=== PATIENT | female | born 1935 | race Caucasian/White ===

== ENCOUNTER 2017-01-17 19:36 | Observation (INO) ==
[2017-01-17] MEDS ORDERED: 0.9 % Sodium Chloride 1,000 ML IVC ONE (19:47)
--- NOTE | 2017-01-17 19:50 | Emergency Department Note ---
Disposition Clinical Impression: Elevated troponin Altered mental status Qualifiers: Altered mental status type: disorientation Qualified Code(s): R41.0 - Disorientation, unspecified Syncope Qualifiers: Syncope type: unspecified Qualified Code(s): R55 - Syncope and collapse Disposition: Admitted As Inpatient Condition: Fair Time of Disposition: 22:36 Altered Mental Status HPI - General Chief Complaint: ED Altered Mental Status Stated Complaint: AMS Time Seen by Provider: 01/17/17 19:45 Source: patient, EMS Mode of arrival: EMS Limitations: altered mental status Nursing Notes Reviewed: Yes Vital Signs Reviewed: Yes - History of Present Illness HPI Narrative: Patient presents to the ED if the chief complaint of altered mental status. EMS reports that the patient's pecan huller found the patient slumped over in a chair on her porch. Unknown last well time. When they arrived they state that the patient was alert but not oriented. The person that found her, said that she was "unresponsive" at first. Upon my evaluation, the patient has no complaints. She denies any pain. She does not know why she is here. She knows her first name and her date of , but she thinks it is 1994. She knows that she lives in [place] but is unsure where. She states that she has heart problems but does not know what they are. She does not know if she is on any medications. 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 - Social History Smoking Status: Current every day smoker Alcohol use: Reports: none Drug use: Reports: none Physical Exam - General Limitations: altered mental status General appearance: alert, in no apparent distress - Head Head exam: atraumatic, normocephalic, normal inspection - Eye Eye exam: Present: normal appearance, PERRL, EOMI (Patient has difficulty following commands to track finger, but is able to look in all directions) - ENT ENT exam: mucous membranes dry - Neck Neck exam: Present: normal inspection, full ROM, trachea midline - Chest Chest inspection: Present: normal inspection, symmetric chest wall rise - Respiratory Respiratory exam: Present: normal lung sounds bilaterally - Cardiovascular Cardiovascular exam: Present: regular rate, normal rhythm, normal heart sounds - Abdominal Exam Abdominal exam: Present: soft, Non-Tender. Absent: tenderness, distention, guarding, rebound, rigidity - Extremities Exam Extremities exam: Present: normal inspection, full ROM, other (Patient has scattered areas of ecchymosis over the right upper extremity). Absent: tenderness, pedal edema - Expanded Lower Extremity Exam Hip/Pelvis exam: Present: normal inspection, full ROM - Neurological Exam Neurological exam: Present: alert. Absent: oriented X3 (Knows her first name, date of , [place] of residence. She does think it is 1994 and does not know her medical history. No insight into current condition) - Skin Skin exam: Present: warm, dry, intact, normal color Course Course Narrative: 81-year-old female presenting with altered mental status. Stroke alert was not called due to unknown last well time. Her neurological exam is grossly nonfocal , although she does not follow directions well and her finger to nose test was abnormal. We will CT her head initiated workup and likely admit. Disposition pending, patient currently stable - Reevaluation(s) Reevaluation #1: CT did not show any acute changes. Troponin is slightly elevated. Family is concerned over the patient's home living situation. Patient is still altered and no one knows what her baseline is. We will admit her for altered mental status, elevated troponin and social situation. Vital Signs Temperature 98.5 F 01/17/17 19:39 Pulse Rate 63 01/17/17 19:39 Respiratory Rate 18 01/17/17 19:39 Blood Pressure 144/66 01/17/17 19:39 O2 Sat by Pulse Oximetry 95 01/17/17 19:39 Temperature 97.9 F 01/18/17 06:56 Pulse Rate 63 01/18/17 06:56 Respiratory Rate 14 01/18/17 06:56 Blood Pressure 124/60 01/18/17 06:56 O2 Sat by Pulse Oximetry 95 01/18/17 06:56 Oxygen Delivery Oxygen Delivery Room Air Altered Mental Status - Medical Records Medical records reviewed: Yes I reviewed the patient's medical records. - Lab Data Lab results reviewed: Yes I reviewed the patient's lab results. Result diagrams: 01/17/17 20:33 01/18/17 07:03 Lab Results 01/17/17 01/17/17 01/17/17 Range/Units 19:50 19:50 19:54 WBC (4.3-11.1) K/mcL RBC (3.82-4.97) M/mcL Hgb (11.5-15.4) g/dL Hct (35.3-44.9) % MCV (83.0-100.0) fL MCH (28.0-33.3) pg MCHC (31.6-35.5) g/dL RDW (11.5-14.5) % Plt Count (140-400) K/mcL MPV (9.4-12.4) fL Immature Gran % (0-4) % Seg Neutrophils % % Lymphocytes % % Monocytes % % Eosinophils % % Basophils % % Neutrophils # (1.6-8.9) K/mcL Lymphocytes # (0.6-4.6) K/mcL Monocytes # (0.0-1.3) K/mcL Eosinophils # (0.0-0.6) K/mcL Basophils # (0.0-0.2) K/mcL Immature Plt Fraction (1.1-6.1) % PT (9.4-12.1) Seconds INR APTT (26.0-36.0) Seconds Sodium (136-145) mEq/L Potassium (3.5-4.5) mEq/L Chloride (98-109) mEq/L Carbon Dioxide (19-29) mEq/L BUN (7-20) mg/dL Creatinine (0.57-1.11) mg/dL Est GFR ( Amer) (> 60) Est GFR (Non-Af Amer) (> 60) BUN/Creatinine Ratio (6-26) Glucose (70-99) mg/dL POC Glucose 65 (58-89) Calculated Osmolality (280-300) Calcium (8.6-10.8) mg/dL Total Bilirubin (0.2-1.2) mg/dL Direct Bilirubin (0.0-0.5) mg/dL Indirect Bilirubin (0.0-1.2) mg/dL AST (5-34) Units/L ALT (0-55) Units/L Alkaline Phosphatase (38-126) Units/L Creatine Kinase (29-168) Units/L Troponin I (0-0.03) ng/mL Serum Total Protein (6.0-8.3) g/dL Albumin (3.5-5.0) g/dL Globulin (2.4-3.5) g/dL Albumin/Globulin Ratio (1.1-2.2) TSH (0.350-4.840) mcIU/mL Urine Color Dark Yellow (Yellow) Urine Clarity Cloudy A (Clear) Urine pH 5.0 (5.0-8.0) pH Units Ur Specific [place] > 1.030 H (1.010-1.025) Urine Protein 30 H (Neg-Trace) mg/dL Urine Glucose (UA) Normal (Normal) mg/dL Urine Ketones 15 H (Negative) mg/dL Urine Blood Negative (Negative) Urine Nitrite Negative (Negative) Urine Bilirubin Moderate H (Negative) Urine Urobilinogen Normal (Normal) mg/dL Ur Leukocyte Esterase Negative (Negative) Urine Microscopic RBC 3-5 H (0-3) per hpf Urine Microscopic WBC 3-5 H (0-3) per hpf Ur Squamous Epith Cells Many H (None-Few) per lpf Urine Bacteria Few (None-Few) per hpf Hyaline Casts None Seen (None-Few) per lpf Ur Culture Indicated? NO (NO) Urine Opiates Screen Positive H (Nhcdtv=213) ng/mL Ur Barbiturates Screen Negative (Jwlyao=256) ng/mL Ur Phencyclidine Scrn Negative (Cutoff=25) ng/mL Ur Amphetamines Screen Negative (Pjkffq=3133) ng/mL U Benzodiazepines Scrn Negative (Osxghk=404) ng/mL Urine Cocaine Screen Negative (Cutoff= 300) ng/mL U Marijuana (THC) Screen Negative (Cutoff = 50) ng/mL Ethyl Alcohol (0-10) mg/dL 01/17/17 01/17/17 01/17/17 Range/Units 20:33 20:33 20:33 WBC 10.7 (4.3-11.1) K/mcL RBC 5.19 H (3.82-4.97) M/mcL Hgb 15.5 H (11.5-15.4) g/dL Hct 48.9 H (35.3-44.9) % MCV 94.2 (83.0-100.0) fL MCH 29.9 (28.0-33.3) pg MCHC 31.7 (31.6-35.5) g/dL RDW 14.0 (11.5-14.5) % Plt Count 321 (140-400) K/mcL MPV 9.8 (9.4-12.4) fL Immature Gran % 0.3 (0-4) % Seg Neutrophils % 66.6 % Lymphocytes % 19.3 % Monocytes % 8.1 % Eosinophils % 5.0 % Basophils % 0.7 % Neutrophils # 7.1 (1.6-8.9) K/mcL Lymphocytes # 2.1 (0.6-4.6) K/mcL Monocytes # 0.9 (0.0-1.3) K/mcL Eosinophils # 0.5 (0.0-0.6) K/mcL Basophils # 0.1 (0.0-0.2) K/mcL Immature Plt Fraction 3.7 (1.1-6.1) % PT 11.2 (9.4-12.1) Seconds INR 1.0 APTT 28.7 (26.0-36.0) Seconds Sodium 139 (136-145) mEq/L Potassium 4.5 (3.5-4.5) mEq/L Chloride 105 (98-109) mEq/L Carbon Dioxide 22 (19-29) mEq/L BUN 27 H (7-20) mg/dL Creatinine 1.08 (0.57-1.11) mg/dL Est GFR ( Amer) 59 L (> 60) Est GFR (Non-Af Amer) 48 L (> 60) BUN/Creatinine Ratio 25 (6-26) Glucose 84 (70-99) mg/dL POC Glucose (58-89) Calculated Osmolality 292 (280-300) Calcium 9.7 (8.6-10.8) mg/dL Total Bilirubin 0.9 (0.2-1.2) mg/dL Direct Bilirubin 0.3 (0.0-0.5) mg/dL Indirect Bilirubin 0.6 (0.0-1.2) mg/dL AST 20 (5-34) Units/L ALT 10 (0-55) Units/L Alkaline Phosphatase 54 (38-126) Units/L Creatine Kinase 146 (29-168) Units/L Troponin I (0-0.03) ng/mL Serum Total Protein 7.4 (6.0-8.3) g/dL Albumin 4.1 (3.5-5.0) g/dL Globulin 3.3 (2.4-3.5) g/dL Albumin/Globulin Ratio 1.2 (1.1-2.2) TSH 0.518 (0.350-4.840) mcIU/mL Urine Color (Yellow) Urine Clarity (Clear) Urine pH (5.0-8.0) pH Units Ur Specific [place] (1.010-1.025) Urine Protein (Neg-Trace) mg/dL Urine Glucose (UA) (Normal) mg/dL Urine Ketones (Negative) mg/dL Urine Blood (Negative) Urine Nitrite (Negative) Urine Bilirubin (Negative) Urine Urobilinogen (Normal) mg/dL Ur Leukocyte Esterase (Negative) Urine Microscopic RBC (0-3) per hpf Urine Microscopic WBC (0-3) per hpf Ur Squamous Epith Cells (None-Few) per lpf Urine Bacteria (None-Few) per hpf Hyaline Casts (None-Few) per lpf Ur Culture Indicated? (NO) Urine Opiates Screen (Xcmbbb=847) ng/mL Ur Barbiturates Screen (Drzefk=586) ng/mL Ur Phencyclidine Scrn (Cutoff=25) ng/mL Ur Amphetamines Screen (Ngcqng=9969) ng/mL U Benzodiazepines Scrn (Qgxzjq=906) ng/mL Urine Cocaine Screen (Cutoff= 300) ng/mL U Marijuana (THC) Screen (Cutoff = 50) ng/mL Ethyl Alcohol < 10 (0-10) mg/dL 01/17/17 Range/Units 20:33 WBC (4.3-11.1) K/mcL RBC (3.82-4.97) M/mcL Hgb (11.5-15.4) g/dL Hct (35.3-44.9) % MCV (83.0-100.0) fL MCH (28.0-33.3) pg MCHC (31.6-35.5) g/dL RDW (11.5-14.5) % Plt Count (140-400) K/mcL MPV (9.4-12.4) fL Immature Gran % (0-4) % Seg Neutrophils % % Lymphocytes % % Monocytes % % Eosinophils % % Basophils % % Neutrophils # (1.6-8.9) K/mcL Lymphocytes # (0.6-4.6) K/mcL Monocytes # (0.0-1.3) K/mcL Eosinophils # (0.0-0.6) K/mcL Basophils # (0.0-0.2) K/mcL Immature Plt Fraction (1.1-6.1) % PT (9.4-12.1) Seconds INR APTT (26.0-36.0) Seconds Sodium (136-145) mEq/L Potassium (3.5-4.5) mEq/L Chloride (98-109) mEq/L Carbon Dioxide (19-29) mEq/L BUN (7-20) mg/dL Creatinine (0.57-1.11) mg/dL Est GFR ( Amer) (> 60) Est GFR (Non-Af Amer) (> 60) BUN/Creatinine Ratio (6-26) Glucose (70-99) mg/dL POC Glucose (58-89) Calculated Osmolality (280-300) Calcium (8.6-10.8) mg/dL Total Bilirubin (0.2-1.2) mg/dL Direct Bilirubin (0.0-0.5) mg/dL Indirect Bilirubin (0.0-1.2) mg/dL AST (5-34) Units/L ALT (0-55) Units/L Alkaline Phosphatase (38-126) Units/L Creatine Kinase (29-168) Units/L Troponin I 0.05 H* (0-0.03) ng/mL Serum Total Protein (6.0-8.3) g/dL Albumin (3.5-5.0) g/dL Globulin (2.4-3.5) g/dL Albumin/Globulin Ratio (1.1-2.2) TSH (0.350-4.840) mcIU/mL Urine Color (Yellow) Urine Clarity (Clear) Urine pH (5.0-8.0) pH Units Ur Specific [place] (1.010-1.025) Urine Protein (Neg-Trace) mg/dL Urine Glucose (UA) (Normal) mg/dL Urine Ketones (Negative) mg/dL Urine Blood (Negative) Urine Nitrite (Negative) Urine Bilirubin (Negative) Urine Urobilinogen (Normal) mg/dL Ur Leukocyte Esterase (Negative) Urine Microscopic RBC (0-3) per hpf Urine Microscopic WBC (0-3) per hpf Ur Squamous Epith Cells (None-Few) per lpf Urine Bacteria (None-Few) per hpf Hyaline Casts (None-Few) per lpf Ur Culture Indicated? (NO) Urine Opiates Screen (Zozlwx=700) ng/mL Ur Barbiturates Screen (Ufzuko=332) ng/mL Ur Phencyclidine Scrn (Cutoff=25) ng/mL Ur Amphetamines Screen (Fxmpmm=7130) ng/mL U Benzodiazepines Scrn (Wlhddy=768) ng/mL Urine Cocaine Screen (Cutoff= 300) ng/mL U Marijuana (THC) Screen (Cutoff = 50) ng/mL Ethyl Alcohol (0-10) mg/dL - Radiology Data Radiology results reviewed: Yes I reviewed the patient's radiology results. - EKG Data EKG attestation: Yes I reviewed and interpreted this EKG. EKG results narrative: Sinus rhythm with first-degree AV block, rate 62, FL interval 214, QRS 150, QTC 462, left axis deviation, right bundle branch block and left anterior fascicular block which is unchanged from previous S.B.A.R. - S.B.A.R. Situation: Demographics, MOA Background: Presenting Complaint, Relevant PMH, Meds, & Allergies Assessment: Vital Signs, Course and respsone to treatment, Exam Concerns, Patient/Family Expectation, Pertinant Lab Results, Outstanding Labs Recommendation: Recommendation based on pending studies, treatments, or consults S.B.A.R. Report Given to: Dr. Harley S.B.A.RIta Repor Time: 22:51 Attestation Statement - Attestation Attestation: I, Alok Blackburn, examined this patient and my medical decision-making was reviewed with the PROFILE STITCHING MACHINE OPERATOR/PA/Advanced Practice Nurse/Resident Physician. I agree with the documented findings, disposition and treatment plan as described except to the extent set forth below. 81-year-old female presents with concerns of confusion. She is a poor historian and is unable to give history regarding her case and presentation. She was apparently found on her porch slumped over. She is unable to describe whether she syncopized. On my initial evaluation the patient is alert and moving all extremities however she has difficulty following instructions for the full neurologic exam. On physical exam the patient has lungs are clear to auscultation bilaterally and the abdomen is nontender to palpation. Patient has an initial elevated troponin of 0.05. She had a negative troponin during her previous stay. Patient will be admitted to the hospital for further evaluation of elevated troponin the setting of possible syncope.
[2017-01-17 19:57] LABS: Bilirubin,Urine Moderate (Negative); Blood,Urine Negative (Negative); Clarity,Urine Cloudy (Clear); Color,Urine Dark Yellow (Yellow); Glucose,Urine (UA) Normal (Normal); Ketones,Urine 15 mg/dL (Negative); Leukocyte Esterase,Urine Negative (Negative); Nitrite,Urine Negative (Negative); Protein,Urine 30 mg/dL (Neg-Trace); Specific Gravity,Urine > 1.030 (1.010-1.025); Urobilinogen,Urine Normal (Normal)
[2017-01-17 19:59] LABS: Bacteria,Urine Few per hpf (None-Few); Hyaline Casts,Urine None Seen per lpf (None-Few); Squamous Epithelial Cell,Urine Many per lpf (None-Few)
[2017-01-17 20:04] LABS: Amphetamine Screen,Urine Negative ng/mL (Cutoff=1000); Barbiturate Screen,Urine Negative ng/mL (Cutoff=200); Benzodiazepines Screen,Urine Negative ng/mL (Cutoff=200); Cannabinoid Screen,Urine Negative ng/mL (Cutoff = 50); Cocaine Screen,Urine Negative ng/mL (Cutoff= 300); Opiate Screen,Urine Positive ng/mL (Cutoff=300); Phencyclidine Screen,Urine Negative ng/mL (Cutoff=25)
[2017-01-17 20:40] LABS: Basophils # 0.1 K/mcL (0.0-0.2); Basophils % 0.7 %; Eosinophils # 0.5 K/mcL (0.0-0.6); Hematocrit 48.9 % (35.3-44.9); Hemoglobin 15.5 g/dL (11.5-15.4); Immature Granulocytes % 0.3 % (0-4); Immature Platelets 3.7 % (1.1-6.1); Lymphocytes # 2.1 K/mcL (0.6-4.6); Lymphocytes % 19.3 %; Mean Corpuscular HGB Conc 31.7 g/dL (31.6-35.5); Mean Corpuscular Hemoglobin 29.9 pg (28.0-33.3); Mean Corpuscular Volume 94.2 fL (83.0-100.0); Mean Platelet Volume 9.8 fL (9.4-12.4); Monocytes # 0.9 K/mcL (0.0-1.3); Monocytes % 8.1 %; Neutrophils # 7.1 K/mcL (1.6-8.9); Platelet Count 321 K/mcL (140-400); Red Blood Count 5.19 M/mcL (3.82-4.97); Segmented Neutrophils % 66.6 %
[2017-01-17 20:47] LABS: Prothrombin Time 11.2 Seconds (9.4-12.1)
[2017-01-17 20:50] LABS: Activated Partial Thrombo Time 28.7 Seconds (26.0-36.0)
[2017-01-17 20:54] LABS: Alanine Aminotransferase 10 Units/L (0-55); Albumin 4.1 g/dL (3.5-5.0); Albumin/Globulin Ratio 1.2 (1.1-2.2); Alkaline Phosphatase 54 Units/L (38-126); Aspartate Amino Transferase 20 Units/L (5-34); BUN/Creatinine Ratio 25 (6-26); Bilirubin,Direct 0.3 mg/dL (0.0-0.5); Bilirubin,Indirect 0.6 mg/dL (0.0-1.2); Bilirubin,Total 0.9 mg/dL (0.2-1.2); Blood Urea Nitrogen 27 mg/dL (7-20); Calcium 9.7 mg/dL (8.6-10.8); Carbon Dioxide 22 mEq/L (19-29); Chloride 105 mEq/L (98-109); Creatine Kinase 146 Units/L (29-168); Globulin 3.3 g/dL (2.4-3.5); Glucose 84 mg/dL (70-99); Osmolality,Calculated 292 (280-300); Potassium 4.5 mEq/L (3.5-4.5); Sodium 139 mEq/L (136-145); Total Protein 7.4 g/dL (6.0-8.3); eGFR For African Americans 59 (> 60); eGFR For Non-African Americans 48 (> 60)
[2017-01-17 20:56] LABS: Ethanol < 10 mg/dL (0-10)
[2017-01-17 21:15] LABS: Thyroid Stimulating Hormone 0.518 mcIU/mL (0.350-4.840)
[2017-01-18] MEDS ORDERED: Naloxone 0.4 MG/ML INJ IVP PRN (06:53)
--- NOTE | 2017-01-18 06:53 | Internal Med History&Physical ---
Date of Encounter: 01/18/17 Time of Encounter: 06:53 Assessment and Plan (1) Acute encephalopathy Current visit: Yes Status: Acute Pt is confused and disoriented. May need details from the family regarding the events prior to presentation. 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 TSH was normal. Urinalysis was not suggestive of UTI. Consider Neurology consultation. Social service consult. (2) Elevated troponin Current visit: Yes Status: Acute Mild elevation of troponin. Trend troponins. Echocardiogram. Consider Cardiology consult. (3) Syncope Current visit: Yes Status: Suspected Unwitnessed. uncertain about the events. audio visual specialist. Echocardiogram. CT head is negative for acute lesions Qualifiers: Syncope type: unspecified Qualified Code(s): R55 - Syncope and collapse (4) DVT prophylaxis Current visit: Yes Status: Acute subQ heparin Internal Medicine - H&P: HPI Chief complaint: confusion Admitted From: Emergency Dept Plans for Post Hospital Care: Home History of present illness: Ms. Jose is a 81 year old female with unknown past medical history. Patient is not able to give clinical details and no family members at the bedside. She is confused and does not know why she is in the hospital. I have from reviewed the [facility] fire department, who brought her to the ER. Apparently bystander called the squad, when the pt was noted to be slumped over in the chair and appeared to not breathing, and ants crawling on her. On evaluation by the squad, patient was disoriented / confused and hence brought to the ER. 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 CXR showed no acute cardiopulmonary disease. TSH was normal. Urinalysis was not suggestive of UTI. Troponin was 0.05. She is admitted to the hospitalist service for further workup and management. Past Med Surg Social Fam HX - Past Medical History Medical history: diabetes, hypertension Psychiatric history: no psych history - Past Surgical History Surgical History: other - Social History Smoking Status: Current every day smoker Alcohol use: none Drug use: none - Additional Family History Additional family history: Not able to obtain family Hx due to mental status changes Internal Medicine - H&P: Meds Allergies aspirin Allergy (Verified 05/25/16 17:16) See Comments patient unsure of reaction ibuprofen [From Motrin] Allergy (Verified 05/25/16 17:16) See Comments patient unsure of reaction ROS unobtainable: due to mental status - Constitutional Vitals: Temp Pulse Resp BP Pulse Ox 97.7 F 70 12 128/62 93 01/18/17 03:23 01/18/17 03:23 01/18/17 03:23 01/18/17 03:23 01/18/17 03:23 Exam: General: Not in acute distress at the time of my evaluation HEENT: Oral mucosa is moist. No conjunctival palor or scleral icterus Neck: No obvious neck swellings Lungs: Clear to auscultation Cardiac: Regular rate and rhythm. systolic murmur present Abdomen: Soft, non tender. Bowel sounds present Genitourinary: No gilbert catheter Neurological: Confused - she cannot name the current month / year. she thinks it is winter, and thinks she is 50 years old. Not able to name the president of [employer]. She knows that she is not [place]. Able to move the extremities. Psych: Not aggressive or agitated. Confused Extremities: no significant leg edema Skin: No generalized rash Internal Med - H&P Results - Labs CBC & Chem 7: 01/17/17 20:33 01/18/17 07:03 - EKG Data -: EKG Interpreted by Myself EKG shows normal: sinus rhythm - EKG Data EKG comments: RBBB, biphasic P waves 01/18/17 08:06 - Impressions ITS Impressions Chest X-Ray 01/17/17 19:47 IMPRESSION: No acute cardiopulmonary disease. D/ / Raulito Stover MD / Raulito Stover MD Interpreting Provider: Raulito Stover MD Head CT 01/17/17 19:48 IMPRESSION: No acute intracranial abnormality. 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
[2017-01-18 07:29] LABS: BUN/Creatinine Ratio 28 (6-26); Blood Urea Nitrogen 23 mg/dL (7-20); Calcium 8.9 mg/dL (8.6-10.8); Carbon Dioxide 25 mEq/L (19-29); Chloride 107 mEq/L (98-109); Chol/HDL Ratio 5.2 (0-4.9); Cholesterol 140 mg/dL (< 200); Glucose 74 mg/dL (70-99); HDL Cholesterol 27 mg/dL (40-59); LDL Cholesterol,Calculated 93 mg/dL (0-99); Magnesium 1.9 mg/dL (1.6-2.6); Osmolality,Calculated 292 (280-300); Sodium 140 mEq/L (136-145); Triglycerides 99 mg/dL (< 150); eGFR For African Americans > 60 (> 60); eGFR For Non-African Americans > 60 (> 60)
[2017-01-18 08:08] LABS: Basophils % 0.5 %; Eosinophils # 0.6 K/mcL (0.0-0.6); Eosinophils % 7.4 %; Hematocrit 41.1 % (35.3-44.9); Immature Granulocytes % 0.2 % (0-4); Lymphocytes # 1.8 K/mcL (0.6-4.6); Lymphocytes % 20.2 %; Mean Corpuscular HGB Conc 32.6 g/dL (31.6-35.5); Mean Corpuscular Volume 92.2 fL (83.0-100.0); Mean Platelet Volume 10.2 fL (9.4-12.4); Monocytes # 0.8 K/mcL (0.0-1.3); Monocytes % 8.9 %; Neutrophils # 5.4 K/mcL (1.6-8.9); Platelet Count 293 K/mcL (140-400); Red Blood Count 4.46 M/mcL (3.82-4.97); Segmented Neutrophils % 62.8 %
[2017-01-18 08:11] LABS: Hemoglobin 13.4 g/dL (11.5-15.4)
--- NOTE | 2017-01-18 11:37 | Electrocardiograph Report ---
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
[2017-01-18] MEDS ORDERED: *HR* HYDROcodone/Acet 7.5/325 mg TABLET PO PRN (12:25)
[2017-01-18] MEDS: *HR* Heparin 5,000 UNIT/ML VIAL SQ SCH (18:13)
[2017-01-19] MEDS: *HR* Heparin 5,000 UNIT/ML VIAL SQ SCH ×2 (06:39→16:46)
--- NOTE | 2017-01-19 16:55 | Internal Med Progress Note ---
Date of Encounter: 01/19/17 Time of Encounter: 10:00 - Assessment and plan (1) Acute metabolic encephalopathy Current Visit: Yes Status: Acute Assessment and plan: per patient sometime takes more of her pain medications. No signs of infection. she is at baseline now. likely from overdose of norco. PT/OT/manager administrative services consulted. improved. (2) Accidental medication overdose Current Visit: Yes Status: Acute Assessment and plan: plan as above. Qualifiers: Encounter type: initial encounter Qualified Code(s): T50.901A - Poisoning by unspecified drugs, medicaments and biological substances, accidental ( unintentional), initial encounter (3) Diabetes Current Visit: Yes Status: Acute Assessment and plan: glucose levels are adequate. iss. diabetic diet. Qualifiers: Diabetes mellitus type: type 2 Diabetes mellitus complication status: without complication Diabetes mellitus intermodal dispatcher insulin use: without intermodal dispatcher use Qualified Code(s): E11.9 - Type 2 diabetes mellitus without complications (4) HTN (hypertension) Current Visit: Yes Status: Acute Assessment and plan: not controlled. resumed home meds. Qualifiers: Hypertension type: essential hypertension Qualified Code(s): I10 - Essential (primary) hypertension - Subjective Interval history: patient is AOx2. She is mildly confused. no other complains. she is eager to go home. - Constitutional Vitals: Temp Pulse Resp BP Pulse Ox 98.5 F 56 14 191/80 95 01/19/17 15:37 01/19/17 15:37 01/19/17 15:37 01/19/17 15:37 01/19/17 15:37 General appearance: Present: cooperative, A&O X 3, pleasant, no acute distress, answers questions appropriately - Neck Neck exam general surgery: Present: supple, trachea midline. Absent: lymphadenopathy - Respiratory Respiratory exam: Present: CTAB - Cardiovascular Cardiovascular exam: Present: RRR - GI/Abdominal GI/Abdominal exam: Present: normal bowel sounds, soft. Absent: distended, tenderness - Extremities Exam Extremities exam: Absent: pedal edema - Back Exam Back exam: Absent: CVA tenderness (L), CVA tenderness (R) - Neurological Exam Neurological exam: Present: alert, oriented X3, no focal deficits, strengths equal and symetr throughout. Absent: facial droop, speech deficit - Skin Skin exam: Absent: rash Internal Medicine: Result - Labs CBC & Chem 7: 01/18/17 07:08 01/18/17 07:03 - ABG Interpretation ABG results: PT/INR, D-dimer PT 11.2 Seconds (9.4-12.1) 01/17/17 20:33 - VTE Documentation of Mechanical Device: Intermittent pneumatic compression device Consult Discharge Plan - Plan Referrals: Unassigned,Provider [Primary Care Provider] -
[2017-01-19] MEDS ORDERED: *HR* HYDROcodone/Acet 5/325 mg TABLET PO PRN (16:59)
[2017-01-19] MEDS: hydroCHLOROthiazide 25 MG TABLET PO SCH (18:58)
[2017-01-19] MEDS: amLODIPine 5 MG TABLET PO SCH (18:59)
[2017-01-19] MEDS: Lisinopril 20 MG TABLET PO SCH (19:01)
[2017-01-19] MEDS ORDERED: Gabapentin 300 MG CAPSULE PO SCH (21:00)
[2017-01-20] MEDS ORDERED: Haloperidol Lactate 5 MG/ML VIAL IM ONE (01:22)
[2017-01-20] MEDS: *HR* Heparin 5,000 UNIT/ML VIAL SQ SCH (05:52)
[2017-01-20 06:07] LABS: Basophils # 0.1 K/mcL (0.0-0.2); Basophils % 0.7 %; Eosinophils # 0.5 K/mcL (0.0-0.6); Eosinophils % 5.8 %; Hematocrit 39.7 % (35.3-44.9); Hemoglobin 12.9 g/dL (11.5-15.4); Immature Granulocytes % 0.2 % (0-4); Lymphocytes % 23.6 %; Mean Corpuscular HGB Conc 32.5 g/dL (31.6-35.5); Mean Corpuscular Hemoglobin 29.8 pg (28.0-33.3); Mean Corpuscular Volume 91.7 fL (83.0-100.0); Mean Platelet Volume 10.2 fL (9.4-12.4); Monocytes # 0.8 K/mcL (0.0-1.3); Monocytes % 9.4 %; Neutrophils # 5.1 K/mcL (1.6-8.9); Platelet Count 312 K/mcL (140-400); Red Blood Count 4.33 M/mcL (3.82-4.97); Segmented Neutrophils % 60.3 %
[2017-01-20 06:08] LABS: Calcium 9.4 mg/dL (8.6-10.8); Magnesium 1.9 mg/dL (1.6-2.6); Phosphorous 3.8 mg/dL (2.3-4.7); Potassium 3.5 mEq/L (3.5-4.5)
[2017-01-20] MEDS: hydroCHLOROthiazide 25 MG TABLET PO SCH (08:50)
[2017-01-20] MEDS: amLODIPine 5 MG TABLET PO SCH (08:50)
[2017-01-20] MEDS: Lisinopril 20 MG TABLET PO SCH (08:50)
--- NOTE | 2017-01-20 15:33 | Discharge Summary ---
Date of Encounter: 01/20/17 Time of Encounter: 15:31 - Discharge Diagnosis (1) Acute metabolic encephalopathy Priority: Primary Status: Acute (2) Accidental medication overdose Priority: Primary Status: Acute Qualifiers: Encounter type: initial encounter Qualified Code(s): T50.901A - Poisoning by unspecified drugs, medicaments and biological substances, accidental ( unintentional), initial encounter (3) Diabetes Priority: Secondary Status: Chronic Qualifiers: Diabetes mellitus type: type 2 Diabetes mellitus complication status: without complication Diabetes mellitus snf insulin use: without snf use Qualified Code(s): E11.9 - Type 2 diabetes mellitus without complications (4) HTN (hypertension) Priority: Secondary Status: Chronic Qualifiers: Hypertension type: essential hypertension Qualified Code(s): I10 - Essential (primary) hypertension (5) Weakness generalized Priority: Secondary Status: Chronic - Discharge Medications Home Medications: Amlodipine Besylate 5 mg PO DAILY 01/18/17 [History] Atorvastatin [Lipitor] 20 mg PO HS 01/18/17 [History] Clopidogrel [Plavix] 75 mg PO DAILY 01/18/17 [History] Gabapentin [Neurontin] 300 mg PO HS 01/18/17 [History] Lisinopril [Zestril] 40 mg PO DAILY 01/18/17 [History] Metformin HCl [Metformin HCl ER] 500 mg PO BID 01/18/17 [History] hydroCHLOROthiazide [Hydrochlorothiazide] 12.5 mg PO DAILY 01/18/17 [History] HYDROcodone/Acet 10/325 mg [[place] 10-325 mg] 1 tab PO BID PRN #0 01/20/17 [Rx] Allergies/Adverse Reactions: Allergies aspirin Allergy (Verified 05/25/16 17:16) See Comments patient unsure of reaction ibuprofen [From Motrin] Allergy (Verified 05/25/16 17:16) See Comments patient unsure of reaction Procedures/tests Complete & Pending: Procedures Performed prior 72 hours Category Date Time Status EV echocardiogram Routine Y 01/18/17 06:56 Completed Date of admission: 01/17/17 23:05 Primary care physician: Provider Unassigned Consults: 01/18/17 00:13 Consult to Digital Printer [CONS] Routine Reason for SW Consult: confusion, lives with spouse 01/18/17 11:32 Consult to Physical Therapy [CONS] Routine Comment: Evaluate, develop and implement POC Reason for Consult: ams, generalized weakness 01/18/17 11:33 Consult to Occupational Therapy [CONS] Routine Comment: Evaluate, develop and implement POC Reason for Consult: ams, generalized weakness - Patient Status Disposition: Home Health Service Condition: Good Functional capacity at discharge: uses cane/walker Overall status at discharge: patient is progressing back to baseline - Discharge Instructions Follow Up With: Unassigned,Provider [Primary Care Provider] - (Follow up with primary care physician in 7-10 days.) Additional Instructions: CHECK YOUR BLOOD PRESSURE AND HEART RATE TWICE DAILY, WRITE DOWN NUMBERS. - Diet and Activity Activity: resume usual activities as tolerated Diet: diabetic diet, low salt diet Interval History: Patient feels fine. She is eager to go home. She has no complaints. Hospital course: Ms. Jose is a 81 year old female with past medical history of diabetes, hypertension and chronic pain syndrome and on opiates. She presented with a chief complaint of changes in mental status. Per [place], patient does overmedicate with her normal colon and becomes confused. CT head showed no acute intracranial process. Chest x-ray showed no acute process. Echocardiogram showed LVEF 70%, LVH, mild systolic dysfunction. Physical therapy assisted the patient and recommended home health with PT. I spoke with the patient and , initially they declined any home health but after an extensive explanation of the benefits they agreed. Her metoprolol dose was discontinued due to bradycardia. PLAN: Patient instructed to check her blood pressure twice daily. She will follow up with primary care physician next week. - Time Spent with Patient Total time spent providing and/or coordinating discharge services: - Constitutional Vitals: Temp Pulse Resp BP Pulse Ox 98.2 F 44 15 143/79 94 01/20/17 11:21 01/20/17 11:21 01/20/17 11:21 01/20/17 11:21 01/20/17 11:21 General appearance: Present: cooperative, A&O X 3, pleasant, no acute distress, answers questions appropriately - Neck Neck exam general surgery: Present: supple, trachea midline. Absent: lymphadenopathy - Respiratory Respiratory exam: Present: CTAB - Cardiovascular Cardiovascular exam: Present: RRR - GI/Abdominal GI/Abdominal exam: Present: normal bowel sounds, soft. Absent: distended, tenderness - Extremities Exam Extremities exam: Absent: pedal edema - Back Exam Back exam: Absent: CVA tenderness (L), CVA tenderness (R) - Neurological Exam Neurological exam: Present: alert, oriented X3, no focal deficits, strengths equal and symetr throughout. Absent: facial droop, speech deficit - Skin Skin exam: Absent: rash - VTE Documentation of Mechanical Device: Intermittent pneumatic compression device
--- NOTE | 2017-01-20 15:36 | Physician Discharge Referral ---
Home Health/Hosp Referral Info Transfer to: Home Health Attending Provider: PRAKASH Provider in Charge Post Discharge: PCP - Diagnosis (1) Acute metabolic encephalopathy Status: Acute (2) Accidental medication overdose Status: Acute (3) Diabetes Status: Chronic (4) HTN (hypertension) Status: Chronic (5) Weakness generalized Status: Chronic - Respiratory Orders Smoking Cessation: Smoking cessation has been advised. For more information, call the [place] Tobacco Quit Line at 8-247-KAMV-NOW. - Diet/Nutrition Diet/Nutrition Orders: No Added Salt (NIKHIL), No Concentrated Sweets - Activity Activity Orders: Ambulate - Services Needed Following services are medically necessary services: Nursing, Physical Therapy, Occupational Therapy - Transfer Medications Home Medications: Amlodipine Besylate 5 mg PO DAILY 01/18/17 [History] Atorvastatin [Lipitor] 20 mg PO HS 01/18/17 [History] Clopidogrel [Plavix] 75 mg PO DAILY 01/18/17 [History] Gabapentin [Neurontin] 300 mg PO HS 01/18/17 [History] Lisinopril [Zestril] 40 mg PO DAILY 01/18/17 [History] Metformin HCl [Metformin HCl ER] 500 mg PO BID 01/18/17 [History] hydroCHLOROthiazide [Hydrochlorothiazide] 12.5 mg PO DAILY 01/18/17 [History] HYDROcodone/Acet 10/325 mg [[place] 10-325 mg] 1 tab PO BID PRN #0 01/20/17 [Rx] Allergies/Adverse Reactions: Allergies aspirin Allergy (Verified 05/25/16 17:16) See Comments patient unsure of reaction ibuprofen [From Motrin] Allergy (Verified 05/25/16 17:16) See Comments patient unsure of reaction Certification: Further, I certify that my clinical findings support that this patient is homebound (i.e. absences from home require considerable and taxing effort and are for medical reasons or church services or infrequently or short duration when for other reasons) because: Homebound Reason: Patient requires assistance of a person or device to safely leave home, Leaving home requires considerable and taxing effort due to condition Attestation: My signature below is to certify that this patient is under my care and that I, or nurse practitioner, or a physician's engineer third assistant working with me, has a face-to -face encounter with this patient.
[2017-01-20 15:39] VITALS: BP 140/75
== END 2017-01-20 15:54 | disposition home health service (06) ==
LOC: EMEROO 19:36 → 3BNU 19:36 → SUATTDRO 23:05 → 3BNU 23:54
PROVIDERS: ADMIT Internal Medicine; ATTEND Internal Medicine

== ENCOUNTER 2017-11-04 18:17 | Inpatient (IN) ==
[~2017-11-04 18:17] MED LIST: *HR* Etomidate 20 MG/10 ML AMPUL IVP ONE; *HR* Midazolam HCl 2 MG/2 ML VIAL IV ONE; *HR* Midazolam HCl 5 MG/5 ML VIAL IVP ONE
[2017-11-04] MEDS ORDERED: *HR* Heparin 5,000 UNIT/ML VIAL IVP ONE (18:18)
[2017-11-04] MEDS ORDERED: *HR* Morphine 2 MG/ML SYRINGE IVP PRN (18:18)
[2017-11-04] MEDS ORDERED: *HR* Heparin 5,000 UNIT/ML VIAL IVP PRN ×2 (18:18)
--- NOTE | 2017-11-04 18:22 | Emergency Department Note ---
Disposition Clinical Impression: STEMI (ST elevation myocardial infarction) Disposition: Admitted As Inpatient Condition: Fair General Adult HPI - General Chief complaint: ED Chest Pain Stated complaint: STEMI Time Seen by Provider: 11/04/17 18:17 - Related Data Home Medications Medication Instructions Recorded Confirmed Amlodipine Besylate 5 mg PO DAILY 01/18/17 01/18/17 Atorvastatin [Lipitor] 20 mg PO HS 01/18/17 01/18/17 Clopidogrel [Plavix] 75 mg PO DAILY 01/18/17 01/18/17 Gabapentin [Neurontin] 300 mg PO HS 01/18/17 01/18/17 Lisinopril [Zestril] 40 mg PO DAILY 01/18/17 01/18/17 Metformin HCl [Metformin HCl ER] 500 mg PO BID 01/18/17 01/18/17 hydroCHLOROthiazide 12.5 mg PO DAILY 01/18/17 01/18/17 [Hydrochlorothiazide] Previous Rx's Medication Instructions Recorded HYDROcodone/Acet 10/325 mg [[place] 1 tab PO BID PRN #0 01/20/17 10-325 mg] Allergies Allergy/AdvReac Type Severity Reaction Status Date / Time aspirin Allergy See Verified 05/25/16 17:16 Comments ibuprofen [From Motrin] Allergy See Verified 05/25/16 17:16 Comments Past Medical History - Past Medical History Medical history: Reports: diabetes, hypertension Surgical history: Reports: other Psychiatric history: Reports: no psych history 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 - Social History Smoking Status: Current every day smoker Alcohol use: Reports: none Drug use: Reports: none Course Vital Signs Temperature 97.0 F L 11/04/17 18:18 Pulse Rate 84 11/04/17 18:18 Respiratory Rate 24 11/04/17 18:18 Blood Pressure 167/110 11/04/17 18:18 O2 Sat by Pulse Oximetry 98 11/04/17 18:18 Temperature 96.9 F L 11/05/17 04:00 Pulse Rate 75 11/05/17 07:00 Respiratory Rate 18 11/05/17 07:00 Blood Pressure 95/39 11/05/17 07:00 O2 Sat by Pulse Oximetry 99 11/05/17 07:00 Oxygen Delivery Oxygen Delivery Nasal Cannula Medical Decision Making - Lab Data Result diagrams: 11/05/17 03:30 04/29/18 03:30 Lab Results 11/04/17 11/04/17 11/04/17 Range/Units 18:18 18:18 18:18 WBC 10.3 (4.3-11.1) K/mcL RBC 5.74 H (3.82-4.97) M/mcL Hgb 17.6 H (11.5-15.4) g/dL Hct 51.1 H (35.3-44.9) % MCV 89.0 (83.0-100.0) fL MCH 30.7 (28.0-33.3) pg MCHC 34.4 (31.6-35.5) g/dL RDW 13.1 (11.5-14.5) % Plt Count 344 (140-400) K/mcL MPV 10.3 (9.4-12.4) fL Immature Gran % 0.3 (0-4) % Seg Neutrophils % 81.8 % Lymphocytes % 11.6 % Monocytes % 4.9 % Eosinophils % 0.9 % Basophils % 0.5 % Neutrophils # 8.4 (1.6-8.9) K/mcL Lymphocytes # 1.2 (0.6-4.6) K/mcL Monocytes # 0.5 (0.0-1.3) K/mcL Eosinophils # 0.1 (0.0-0.6) K/mcL Basophils # 0.1 (0.0-0.2) K/mcL PT 11.2 (9.4-12.1) Seconds INR 1.0 APTT 26.3 (26.0-36.0) Seconds Sodium 140 (136-145) mEq/L Potassium 3.6 (3.5-5.1) mEq/L Chloride 102 (98-107) mEq/L Carbon Dioxide 29 (23-29) mEq/L BUN 16 (8-23) mg/dL Creatinine 1.16 (0.60-1.20) mg/dL Est GFR ( Amer) 54 L (> 60) Est GFR (Non-Af Amer) 45 L (> 60) BUN/Creatinine Ratio 14 (6-26) Glucose 253 H (70-105) mg/dL Calculated Osmolality 300 (280-300) Calcium 9.9 (8.6-10.3) mg/dL Total Bilirubin 0.6 (0.3-1.0) mg/dL AST 18 (13-39) Units/L ALT 9 (7-52) Units/L Alkaline Phosphatase 95 (34-104) Units/L Troponin I 0.10 H* (< 0.04) ng/mL Serum Total Protein 8.0 (6.4-8.9) g/dL Albumin 4.7 (3.5-5.7) g/dL Globulin 3.3 (2.4-3.5) g/dL Albumin/Globulin Ratio 1.4 (1.1-2.2) Attestation Statement - Attestation Attestation: I examined this patient and my medical decision-making was reviewed with the Resident Physician. I agree with the documented findings, disposition and treatment plan as described except to the extent set forth below. [id number] time provided Patient arrives by EMS complaining of chest pain. She is uncomfortable appearing on exam. Prehospital ECG shows an ST segment elevation pattern in the septal leads. Prehospital STEMI activated. I did discuss this case with the on-call metal tube cutter Dr. Morgan prior to the patient's arrival.
[2017-11-04] MEDS ORDERED: Nitroglycerin 25 MG/250 ML INFUS..BTL IVC SCH (18:30)
[2017-11-04] MEDS ORDERED: *HR* Morphine 2 MG/ML SYRINGE ONE (18:32)
--- NOTE | 2017-11-04 18:33 | Emergency Department Note ---
Disposition Clinical Impression: STEMI (ST elevation myocardial infarction) Qualifiers: Involved coronary artery: unspecified coronary artery Qualified Code(s): I21.3 - ST elevation (STEMI) myocardial infarction of unspecified site Disposition: Admitted As Inpatient Condition: Fair Time of Disposition: 18:40 (Dispo to quality assurance qa lab analyst) Chest Pain HPI - General Chief Complaint: ED Chest Pain Stated Complaint: STEMI Time Seen by Provider: 11/04/17 18:17 Source: patient, EMS Mode of arrival: EMS Limitations: no limitations Vital Signs Reviewed: Yes Nursing Notes Reviewed: Yes - History of Present Illness HPI Narrative: Patient is an 82-year-old female with past medical history of hypertension, hyperlipidemia, CAD, 4-5 previous stents in the past. She presents today via EMS due to STEMI/chest pain. EKG was transmitted prior to arrival which showed ST elevation in lead V1, V2, V3, V4. STEMI alert was called prior to the squad arriving at 1806. Upon arrival, EMS states that the patient has been having chest pain for the past hour, they gave one nitroglycerin. Patient reports an allergy to aspirin. She states that she had chest pain that started in the center of her chest and radiated to her back, started about an hour ago, gradual in onset, and has progressively worsened. Described as an intense pressure. Currently rates pain as 10 out of 10. Associated with mild sweating and shortness of breath. Denies any nausea, vomiting, fevers, abdominal pain, diarrhea. is present and states that the patient has not been taking her regularly prescribed medications for hypertension, hyperlipidemia, CAD for the past couple months. Severity scale (1-10): 10 - Related Data Home Medications Medication Instructions Recorded Confirmed Amlodipine Besylate 5 mg PO DAILY 01/18/17 01/18/17 Atorvastatin [Lipitor] 20 mg PO HS 01/18/17 01/18/17 Clopidogrel [Plavix] 75 mg PO DAILY 01/18/17 01/18/17 Gabapentin [Neurontin] 300 mg PO HS 01/18/17 01/18/17 Lisinopril [Zestril] 40 mg PO DAILY 01/18/17 01/18/17 Metformin HCl [Metformin HCl ER] 500 mg PO BID 01/18/17 01/18/17 hydroCHLOROthiazide 12.5 mg PO DAILY 01/18/17 01/18/17 [Hydrochlorothiazide] Previous Rx's Medication Instructions Recorded HYDROcodone/Acet 10/325 mg [[place] 1 tab PO BID PRN #0 01/20/17 10-325 mg] Allergies Allergy/AdvReac Type Severity Reaction Status Date / Time aspirin Allergy See Verified 05/25/16 17:16 Comments ibuprofen [From Motrin] Allergy See Verified 05/25/16 17:16 Comments All systems ED: reviewed and negative except as stated. Constitutional: Denies: fever Cardiovascular: Reports: chest pain Respiratory: Reports: dyspnea. 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 - Social History Smoking Status: Current every day smoker Alcohol use: Reports: none Drug use: Reports: none Physical Exam Patient appears to be in distress, clutching her left chest, complaining of severe pain in her left chest; facial expressions show anxiety and fear - General Limitations: no limitations General appearance: alert, in distress - Head Head exam: atraumatic, normocephalic, normal inspection - Eye Eye exam: Present: normal appearance, PERRL, EOMI - ENT ENT exam: normal exam, normal oropharynx, mucous membranes moist - Neck Neck exam: Present: normal inspection, full ROM, trachea midline - Chest Chest inspection: Present: normal inspection, symmetric chest wall rise - Respiratory Respiratory exam: Present: other (Patient is tachypneic, lungs clear to auscultation.). Absent: wheezes - Cardiovascular Cardiovascular exam: Present: regular rate, normal rhythm, normal heart sounds - Abdominal Exam Abdominal exam: Present: soft, Non-Tender. Absent: tenderness, distention, guarding, rebound, rigidity - Extremities Exam Extremities exam: Present: normal inspection, full ROM. Absent: tenderness, pedal edema - Neurological Exam Neurological exam: Present: alert, oriented X3. Absent: motor sensory deficit - Psychiatric Psychiatric exam: Present: anxious - Skin Skin exam: Present: warm, dry, intact, normal color Course Course Narrative: STEMI alert was called prior to arrival. Patient was given Plavix due to allergy to aspirin. We also gave the patient heparin. This was per hospital protocol. Dr. Lee talked with sample processor, Dr. Morgan. She is activating catheter lab. clinical laboratory aide called back and recommended that we give an additional 300mg of plavix. Patient has stable blood pressure and vitals at this time. Patient was also given morphine for pain control. Vital Signs Temperature 97.0 F L 11/04/17 18:18 Pulse Rate 84 11/04/17 18:18 Respiratory Rate 24 11/04/17 18:18 Blood Pressure 167/110 11/04/17 18:18 O2 Sat by Pulse Oximetry 98 11/04/17 18:18 Temperature 97.0 F L 11/04/17 18:18 Pulse Rate 75 11/04/17 18:32 Respiratory Rate 24 11/04/17 18:32 Blood Pressure 194/110 11/04/17 18:32 O2 Sat by Pulse Oximetry 100 11/04/17 18:32 Oxygen Delivery Oxygen Delivery Nasal Cannula Chest Pain - MDM Narrative Medical decision making narrative: STEMI alert was called prior to arrival. Patient was given Plavix due to allergy to aspirin. We also gave the patient heparin. This was per hospital protocol. Dr. Lee talked with sample processor, Dr. Morgan. She is activating catheter lab. clinical laboratory aide called back and recommended that we give an additional 300mg of plavix. Patient has stable blood pressure and vitals at this time. Patient was also given morphine for pain control. - Medical Records Medical records reviewed: Yes I reviewed the patient's medical records. - Lab Data Result diagrams: 11/04/17 18:18 Lab Results 11/04/17 11/04/17 Range/Units 18:18 18:18 WBC 10.3 (4.3-11.1) K/mcL RBC 5.74 H (3.82-4.97) M/mcL Hgb 17.6 H (11.5-15.4) g/dL Hct 51.1 H (35.3-44.9) % MCV 89.0 (83.0-100.0) fL MCH 30.7 (28.0-33.3) pg MCHC 34.4 (31.6-35.5) g/dL RDW 13.1 (11.5-14.5) % Plt Count 344 (140-400) K/mcL MPV 10.3 (9.4-12.4) fL Immature Gran % 0.3 (0-4) % Seg Neutrophils % 81.8 % Lymphocytes % 11.6 % Monocytes % 4.9 % Eosinophils % 0.9 % Basophils % 0.5 % Neutrophils # 8.4 (1.6-8.9) K/mcL Lymphocytes # 1.2 (0.6-4.6) K/mcL Monocytes # 0.5 (0.0-1.3) K/mcL Eosinophils # 0.1 (0.0-0.6) K/mcL Basophils # 0.1 (0.0-0.2) K/mcL PT 11.2 (9.4-12.1) Seconds INR 1.0 APTT 26.3 (26.0-36.0) Seconds - Radiology Data Radiology results reviewed: Yes I reviewed the patient's radiology results. - EKG Data EKG attestation: Yes I reviewed and interpreted this EKG. EKG results narrative: EKG #1. Transmitted prior to arrival. 18:06. 11/04/2017. EKG shows normal sinus rhythm, ST elevation in V1, V2, V3, V4. Rate 77. QRS is 0.132 seconds. QTC 459. Left axis deviation. EKG #2 upon arrival. 11/04/2017 at 18:17. Normal sinus rhythm. Rate 86. LA was 232. QRS 124. QTC 446. Left axis deviation. ST elevation in V1, V2, V3, V4 are mildly improved from transmitted EKG.
[2017-11-04] MEDS ORDERED: *HR* Heparin 10,000 UNIT/10 ML VIAL ONE ×2 (18:35→20:10)
[2017-11-04] MEDS ORDERED: 0.9 % Sodium Chloride 1,000 ML ONE ×4 (18:35→20:32)
[2017-11-04] MEDS ORDERED: Heparin 1,000 UNITS/500 mL 500 ML ONE ×4 (18:35→21:05)
[2017-11-04] MEDS ORDERED: ISOVUE-370 200 ML INFUS..BTL IV ONE ×4 (18:35→21:26)
[2017-11-04 18:36] LABS: Basophils # 0.1 K/mcL (0.0-0.2); Basophils % 0.5 %; Eosinophils # 0.1 K/mcL (0.0-0.6); Eosinophils % 0.9 %; Hematocrit 51.1 % (35.3-44.9); Hemoglobin 17.6 g/dL (11.5-15.4); Immature Granulocytes % 0.3 % (0-4); Lymphocytes # 1.2 K/mcL (0.6-4.6); Lymphocytes % 11.6 %; Mean Corpuscular HGB Conc 34.4 g/dL (31.6-35.5); Mean Corpuscular Hemoglobin 30.7 pg (28.0-33.3); Mean Platelet Volume 10.3 fL (9.4-12.4); Monocytes # 0.5 K/mcL (0.0-1.3); Monocytes % 4.9 %; Neutrophils # 8.4 K/mcL (1.6-8.9); Platelet Count 344 K/mcL (140-400); Red Blood Count 5.74 M/mcL (3.82-4.97); Red Cell Distribution Width 13.1 % (11.5-14.5); Segmented Neutrophils % 81.8 %
[2017-11-04 18:42] LABS: Prothrombin Time 11.2 Seconds (9.4-12.1)
[2017-11-04] MEDS ORDERED: Nitroglycerin 1,000 MCG/10 ML VIAL IV ONE ×2 (18:43→20:08)
[2017-11-04 18:45] LABS: Activated Partial Thrombo Time 26.3 Seconds (26.0-36.0)
[2017-11-04] MEDS ORDERED: *HR* Midazolam HCl 2 MG/2 ML VIAL ONE ×2 (18:52→19:03)
[2017-11-04] MEDS ORDERED: *HR* FentaNYL (PF) 100 MCG/2 ML VIAL ONE ×3 (18:52→20:55)
[2017-11-04 18:57] LABS: Albumin 4.7 g/dL (3.5-5.7); Albumin/Globulin Ratio 1.4 (1.1-2.2); Bilirubin,Total 0.6 mg/dL (0.3-1.0); Calcium 9.9 mg/dL (8.6-10.3); Globulin 3.3 g/dL (2.4-3.5); Potassium 3.6 mEq/L (3.5-5.1)
[2017-11-04 19:03] LABS: Troponin I 0.1 ng/mL (< 0.04)
[2017-11-04] MEDS ORDERED: *HR* Heparin 5,000 UNIT/ML VIAL ONE (20:08)
[2017-11-04] MEDS ORDERED: *HR* Midazolam HCl 5 MG/5 ML VIAL IVP ONE (20:11)
[2017-11-04] MEDS ORDERED: *HR* Phenylephrine 10 MG/ML VIAL ONE (20:33)
[2017-11-04] MEDS ORDERED: D5% in Water 250 ML ONE ×2 (21:42→22:56)
[2017-11-04 21:59] LABS: ABG Base Excess -4 mEq/L (-2 to 3); ABG HCO3 25 mEq/L (21-27); ABG Oxygen Saturation 96 % (95-98); ABG PCO2 59 mmHg (35-45); ABG PH 7.23 pH Units (7.32-7.45); ABG PO2 94 mmHg (85-104); ABG TCO2 26 mEq/L (20-26); Blood Gas Modality VC; Blood Gas PEEP 5 cm H2O; Blood Gas Respiration Rate 12; Blood Gas VT 400 cc
[2017-11-04] MEDS ORDERED: 0.9 % Sodium Chloride 500 ML ONE (22:16)
[2017-11-04] MEDS ORDERED: Abciximab 9 MG in 0.9 % Sodium Chloride 250 ML IVC SCH (22:45)
[2017-11-04] MEDS ORDERED: *HR* Norepinephrine 4 MG/4 ML VIAL IVC ONE (22:56)
[2017-11-04] MEDS ORDERED: Dextrose Gel 15 GM/37.5 ML TUBE PO PRN ×2 (22:59)
[2017-11-04] MEDS ORDERED: D5% in Water 1,000 ML IVC PRN (22:59)
[2017-11-04] MEDS ORDERED: *HR* Dextrose 50 % in Water (Syg) 50 ML SYRINGE IVP PRN (23:02)
--- NOTE | 2017-11-04 23:11 | Invasive Diagnostic Lab Proc ---
Name: Latonya Jose Date of Study: 11/04/2017 Date: 1935 Ht: 64.9in Medical Record#: [id number] Age: 82 Wt: 134.26lb Gender: Female BSA: 1.67 Order #: [id number] BMI: 22.42 Physicians Procedure Physician: Daysi Morgan MD, [facility] Referring MD: Referring MD: Staff Name Position Time In Harinder Maldonado RN Monitor 06:51 PM Daysi Morgan MD, [facility] doctor 06:51 PM Coral Strickland RT (R) Scrub 06:51 PM Jeramie Green RN Heel Nailing Machine Operator 06:51 PM Julio César Hernandez RT (R) Scrub 09:00 PM Indications Indication STEMI Procedures Performed Procedure PRQ CARD REVASC CO 1 VSL L HRT ARTERY/VENTRICLE ANGIO IABP INSERTION, PERCUTANEOUS CENTRAL LINE PLACEMENT Pre-Procedure Checklist Informed consent is complete signed and on chart. H&P is on chart. ID band is on and ID verified with patient. Pt not NPO for procedure and MD aware. The procedure was described for the patient and questions were answered. Blood Pressure: 165/81 ECG is on chart. Rhythm: NSR Plan of Care Patient will tolerate the procedure without complications. Adequate level of comfort will be maintained. Hemodynamics will remain stable Patient will recover from procedure without complications. Respiratory function will be maintained. Cardiac rhythm will remain stable. Patient temperature will be maintained. Patient and/or family have verbalized understanding of the procedure. Patient Education Chief Complaint/Reason for Test: Cardiac Cath Developmental Category: Geriatric (65+ years) Developmentally Appropriate for Age: Yes Learning Barriers: Emotional Education Needs: Procedure Education Method: Verbal Information Taught: Cardiac Cath Educational Evaluation: Unable to retain information. Needs further instruction Intravenous Access Time IV Size Location DC'd Fluid/Drip Rate Units RN 20g 1 07/13" Patent On Arrival Lt Forearm 0.9NaCl 25 ml/hr Harinder Maldonado RN 20g 1 07/13" Patent On Arrival Rt Forearm Harinder Maldonado RN Allergies Nsaid Salicylate, Aspirin aspirin ibuprofen Hydroxyzine Vital Signs Time BP (mmHg) HR (bpm) O2 Sat. RR (bpm) LOC 06:53 PM / % 5 = Fully awake and oriented or at pre-proc level 06:54 PM / % 3 = Answers simple questions/follows commands 07:09 PM / % 3 = Answers simple questions/follows commands 07:24 PM / % 4 = Oriented but drowsy 07:39 PM / % 3 = Answers simple questions/follows commands 07:54 PM / % 4 = Oriented but drowsy 06:51 PM 222 / 143 84 100 % 06:55 PM 165 / 81 85 100 % 07:01 PM 188 / 96 65 98 % 07:05 PM 170 / 101 84 100 % 07:10 PM 150 / 86 71 % 07:15 PM 151 / 94 69 93 % 07:20 PM 146 / 88 77 97 % 07:25 PM 141 / 84 66 94 % 07:30 PM 177 / 86 60 95 % 07:39 PM 173 / 90 59 79 % 07:45 PM 184 / 103 67 93 % 07:48 PM 181 / 100 % 08:15 PM 194 / 112 77 95 % 08:19 PM 171 / 97 69 95 % 08:24 PM 156 / 92 68 92 % 09:32 PM 130 / 69 86 96 % 09:36 PM 114 / 89 94 94 % 09:41 PM 127 / 85 91 95 % 09:47 PM 129 / 108 96 95 % 09:51 PM 136 / 89 94 97 % 09:56 PM 148 / 99 81 98 % 10:01 PM 106 / 90 101 97 % 10:06 PM 118 / 101 99 96 % 10:12 PM 130 / 68 94 96 % 10:16 PM 134 / 92 74 97 % 08:30 PM 177 / 98 73 94 % 08:34 PM 183 / 100 85 96 % 08:39 PM 185 / 105 65 97 % 08:45 PM 195 / 109 87 95 % 08:49 PM 115 / 70 79 99 % 08:54 PM 100 / 84 74 90 % 08:59 PM 71 / 32 48 76 % 09:04 PM 82 / 47 48 98 % 09:10 PM 135 / 82 89 95 % 09:21 PM 128 / 97 96 93 % 09:27 PM 120 / 54 116 96 % Procedural Medications Time Medication Dose Units Method Given By 06:53 PM Versed 2 mg Intravenous Jeramie Green RN 06:53 PM Fentanyl 50 mcg Intravenous Jeramie Green RN 06:53 PM Lidocaine 2% 11 ml Subcutaneous Daysi Morgan MD, FACC 06:54 PM Oxygen 2 L/min nasal cannula Jeramie Green RN 07:03 PM Fentanyl 25 mcg Intravenous Peter, Jeramie RN 07:03 PM Versed 1 mg Intravenous Peter, Jeramie RN 07:05 PM Nitroglycerin 10 mcg/min Intravenous Peter, Jeramie RN 07:10 PM Nitroglycerin 200 mcg Intracoronary Daysi Morgan MD, FAC 07:14 PM Heparin 2000 units Intravenous Peter, Jeramie RN 07:18 PM Fentanyl 25 mcg Intravenous Peter, Jeramie RN 07:29 PM Nitroglycerin 200 mcg Intracoronary Daysi Morgan MD, FAC 07:34 PM Versed 1 mg Intravenous Peter, Jeramie RN 08:15 PM Versed 2 mg Intravenous Peter, Jeramie RN 08:21 PM Fentanyl 50 mcg Intravenous Peter, Jeramie RN 08:49 PM Etomidate 20 mg Intravenous Harinder Maldonado RN 08:50 PM Versed 2.5 mg Intravenous Harinder Maldonado RN 08:49 PM Fentanyl 50 mcg Intravenous Peter, Jeramie RN 08:54 PM Versed 2.5 mg Intravenous Peter, Jeramie RN 08:54 PM Fentanyl 50 mcg Intravenous Peter, Jeramie RN 08:55 PM Lidocaine 2% 11 ml Subcutaneous Daysi Morgan MD, [facility] 09:06 PM Heparin 3000 units Intravenous Peter, Jeramie RN 09:11 PM Heparin 1000 units/hr Intravenous Peter, Jeramie RN 09:12 PM Fentanyl 100 mcg/min Intravenous Peter, Jeramie RN 09:12 PM Versed 2 mg/hr Intravenous Jeramie Green RN 09:00 PM Neosynephrine 100 mcg Intravenous Harinder Maldonado RN 09:02 PM Neosynephrine 200 mg Intravenous Harinder Maldonado RN 09:04 PM Dopamine 15 mcg/kg/min Intravenous Harinder Maldonado RN 09:23 PM Nitroglycerin 200 mcg Intracoronary Daysi Morgan MD, FAC 09:29 PM Reopro Bolus: 7.5 ml Intracoronary Daysi Morgan MD, FACC 09:37 PM Nitroglycerin 200 mcg Intracoronary Daysi Morgan MD, FACC 09:45 PM reopro 13 ml/hr Intravenous Jeramie Green RN ASA Classification: Emergent Procedure: ASA score is assumed Ekta Score Preprocedure Postprocedure Activity 2- Moves 4 extremities sustained head lift Activity 0- Unable to move extremities or lift head Circulation 2- SBP +/= 20 points of pre-anesthetic level Circulation 2- SBP +/= 20 points of pre-anesthetic level Consciousness 2- Awake and alert oriented x 3 Consciousness 0- Non-responsive O2 Saturation 2- Able to maintain O2 satruation of 92% on room air O2 Saturation 1- Needs O2 inhalation to maintain O2 saturation of 90% Respiratory 2- Able to deep breathe and cough well Respiratory 0- Apneic requires ventilator or assisted respiration Total Score 10 Total Score 3 Contrast Agent: Isovue Diagnostic Contrast: 445 ml Total Contrast: 445 ml Fluoro Dose: 1574 mGy Activated Clotting Time Time Seconds to Clot 06:58 PM 250 07:13 PM 234 07:35 PM 400 07:42 PM 276 08:24 PM 246 08:47 PM 184 09:32 PM 307 Procedure Log Time Note Enter By 06:49 PM CathStat 06:49 PM Case Start 06:49 PM Vitals capture started with the following parameters, Patient=Adult, Interval=5 min, Initial Nfozwkfk=930 mmHg, Deflation Rate=5 mmHg, Cuff placed on Right Arm 06:50 PM Time: 18:54 Oxygen on at 2 L/min per nasal cannula by Jeramie Green RN [facility] 06:51 PM HR=84 bpm, GXMG=548/143 mmhg, SnA4=873.0 % 06:51 PM Pt arrived to track laborer 2 at 18:45 [email or web address] 06:51 PM Harinder Maldonado RN Position: Monitor Time in: 18:51 [email or web address] 06:51 PM Daysi Morgan MD, [facility] Position: doctor Time in: 18:51 [email or web address] 06:51 PM Coral Strickland RT (R) Position: Scrub Time in: 18:51 [email or web address] 06:51 PM Jeramie Green RN Position: Heel Nailing Machine Operator Time in: 18:51 [email or web address] 06:51 PM Patient charges- Angio tray pack, Navilyst 3mm J, Pulse Oximetry and ACIST tubing and transducer [email or web address] 06:51 PM Hair removed from procedure site in emergency department using clippers. Bilateral groin prepped with Chloraprep by Coral Strickland RT (R), then patient was draped. Skin intact. [email or web address] 06:51 PM Meet and greet completed [email or web address] 06:52 PM Procedure start 18:52 csmith 06:52 PM Time out performed according to hospital policy [email or web address] 06:53 PM Time: 18:53 Versed 2 mg Intravenous Given by Jeramie Green RN [email or web address] 06:53 PM Time: 18:53 Fentanyl 50 mcg Intravenous Given by Jeramie Green RN [email or web address] 06:53 PM Time: 18:53 11 ml Lidocaine 2% to right groin Subcutaneous Given by [facility], [email or web address] 06[facility] PM Time: 18:53 Patient comfortable and pain free: Yes [facility] 06:54 PM Time: 18:53LOC: 5 = Fully awake and oriented or at pre-proc level [facility] 06:54 PM Access obtained by percutaneous puncture. 6Fr 10cm Terumo Charmco sheath placed in right Femoral artery. [id number] [place] [address] 06:55 PM HR=85 bpm, IEKK=514/81 mmhg, DyB0=597.0 % 06:55 PM Pressure channel 1 zeroed. 06:55 PM act drawn csmith 06:55 PM 5Fr FL 4 catheter inserted over the wire [facility] csmith 06:56 PM 0.035 145cm Navilyst 3mmJ wire [id number] csmith 06:56 PM LCA angiography performed in multiple views. csmith 06:56 PM Recorded Pressure: Ao, [place]=549, Condition=Condition 1 (Aorta) Ao 175/117/144 06:57 PM Catheter removed csmith 06:57 PM 6Fr XB LAD 3.5 [place] Bright-Tip guide catheter was used to cannulate the PCI vessel successfully. reused? No csmith 06:57 PM .014 Prowater 180cm guide wire across target lesion- successful. reused? No csmith 06:57 PM Inflation device was opened. csmith 06:58 PM Lesion found in Mid LAD. Pre Stenosis: 100 Pre HANNY Flow: 0: No Flow/No perfusion csmith 06:58 PM At 18:58 the ACT was 250 seconds. csmith 06:59 PM Pressure channel 1 zeroed. 06:59 PM Recorded Pressure: Ao, HR=68, Condition=Condition 1 (Aorta) Ao 221/75/134 07:01 PM HR=65 bpm, CUSK=881/96 mmhg, SpO2=98.0 % 07:01 PM 2.0 mm x 15 mm Emerge Monorail balloon across target lesion- successful. reused? No (mid LAD) csmith 07:02 PM Balloon inflated @ 8 gabriela for 20 seconds csmith 07:03 PM troponin 0.10, dr. morgan aware csmith 07:03 PM Time: 19:03 Fentanyl 25 mcg Intravenous Given by Jeramie Green RN csmith 07:03 PM Time: 19:03 Versed 1 mg Intravenous Given by Jeramie Green RN csmith 07:05 PM HR=84 bpm, QDFS=935/101 mmhg, ImS0=638.0 % 07:06 PM Time: 19:05 Nitroglycerin 10 mcg/min Intravenous Given by Jeramie Green RN Cabral pump csmith 07:06 PM Balloon inflated @ 14 gabriela for 20 seconds csmith 07:07 PM Recorded Pressure: Ao, HR=66, Condition=Condition 1 (Aorta) Ao 158/85/116 07:07 PM Balloon inflated @ 14 gabriela for 20 seconds csmith 07:08 PM Balloon inflated @ 14 gabriela for 20 seconds csmith 07:08 PM Balloon inflated @ 14 gabriela for 20 seconds csmith 07:09 PM Time: 18:53 Patient comfortable and pain free: Yes csmith 07:09 PM Time: 18:54LOC: 3 = Answers simple questions/follows commands csmith 07:10 PM Time: 19:10 Nitroglycerin 200 mcg Intracoronary Given by Daysi Morgan MD, FACC csmith 07:10 PM HR=71 bpm, BFGW=661/86 mmhg, Comment=nsr 07:10 PM act drawn and running csmith 07:13 PM 2.25mm x 20mm Synergy drug-eluting stent across target lesion- successful Lot #[id number] csmith 07:13 PM At 19:13 the ACT was 234 seconds. csmith 07:14 PM Stent balloon reinflated @ 12 gabriela for 30 seconds csmith 07:14 PM Time: 19:14 Heparin 2000 units Intravenous Given by Jeramie Green RN csmith 07:15 PM HR=69 bpm, ZFAM=579/94 mmhg, SpO2=93.0 % 07:15 PM Stent balloon reinflated @ 14 gabriela for 15 seconds csmith 07:15 PM Recorded Pressure: Ao, HR=59, Condition=Condition 1 (Aorta) Ao 153/71/107 07:16 PM Stent delivery system removed intact. csmith 07:18 PM 2.5mm x 28mm Synergy drug-eluting stent across target lesion- successful Lot #[id number] csmith 07:18 PM Time: 19:18 Fentanyl 25 mcg Intravenous Given by Jeramie Green RN csmith 07:20 PM HR=77 bpm, UFPF=525/88 mmhg, SpO2=97.0 % 07:24 PM Stent removed intact and undeployed csmith 07:25 PM 2.25mm x 20mm Synergy drug-eluting stent across target lesion- successful Lot #[id number] csmith 07:25 PM HR=66 bpm, XENP=847/84 mmhg, SpO2=94.0 % 07:27 PM Stent deployed @ 14 gabriela for 30 seconds csmith 07: PM Stent balloon reinflated @ 18 gabriela for 20 seconds csmith 07:29 PM Stent balloon reinflated @ 18 gabriela for 15 seconds csmith 07: PM Stent delivery system removed intact. csmith 07:29 PM ACT drawn csmith 07:30 PM Time: 19:29 Nitroglycerin 200 mcg Intracoronary Given by Daysi Morgan MD, [facility] csmith 07:30 PM HR=60 bpm, TJFW=770/86 mmhg, SpO2=95.0 % 07:31 PM Recorded Pressure: Ao, HR=63, Condition=Condition 1 (Aorta) Ao 158/59/101 07:31 PM wire removed csmith 07:33 PM Guide catheter removed intact. csmith 07:33 PM 5Fr FR 4 [facility] PM RCA angiography performed in multiple views. csmith 07:34 PM [facility] removed [facility] 07:34 PM Time: 19:34 Versed 1 mg Intravenous Given by Jeramie Green RN [facility] 07:35 PM At 19:35 the ACT was 400 seconds. [facility] 07:35 PM 5Fr Pigtail [facility] the [facility] 07[facility] PM Catheter selectively placed in left ventricle csmith 07:35 PM Bolus angiogram of left Ventricle complete: 8 ml/sec for a total of 24 mls [facility] 07:36 PM Pressure channel 1 zeroed. 07:36 PM Recorded Pressure: LV, HR=70, Condition=Condition 1 (Left Ventricle) LV 151/27/33 07:36 PM Vitals capture stopped. 07:36 PM Recorded Pressure: LV, LV, HR=61, Condition=Condition 1 (Left Ventricle) LV 149/25/17, (Left Ventricle) LV 152/21/21 07:37 PM Recorded Pressure: LV, Ao, HR=63, Condition=Condition 1 (Left Ventricle) LV 158/37/41, (Aorta) Ao 158/82/120 07:37 PM Catheter removed csmith 07:37 PM Wire removed csmith 07:37 PM Vitals capture started with the following parameters, Patient=Adult, Interval=5 min, Initial Qafpvgdt=224 mmHg, Deflation Rate=5 mmHg, Cuff placed on Right Arm 07:38 PM act drawn and running csmith 07:38 PM Bolus angiogram of right Femoral complete: 4 ml/sec for a total of 7 mls csmith 07:39 PM HR=59 bpm, TWOZ=110/90 mmhg, SpO2=79.0 % 07:39 PM Time: 19:09 Patient comfortable and pain free: Yes csmith 07:39 PM Time: 19:24LOC: 4 = Oriented but drowsy csmith 07:40 PM Procedure completed at 19:40 csmith 07:40 PM Did you address HANNY flow and Dominance? Yes csmith 07:40 PM Isovue 370 - 200ml,2 Bottle(s) used. csmith 07:40 PM Sheath left in place to be pulled on floor/holding area csmith 07:40 PM Estimated Blood Loss: minimal csmith 07:40 PM Post ECG NSR csmith 07:40 PM Post Blood Pressure 173/90 csmith 07:41 PM 19:40 Post Pulses Bilateral femoral 2+ csmith 07:41 PM Information taught PCI and Cardiac Cath csmith 07:41 PM Education needs Responsibilities of Patient in Care csmith 07:41 PM Learning barriers :Emotional csmith 07:41 PM Education Methods Verbal csmith 07:41 PM Education evaluation Not ready to learn csmith 07:42 PM At 19:42 the ACT was 276 seconds. csmith 07:42 PM Despite extensive education pt uncooperative with commands/requests to stay still. Attempting to move extremities frequently during LHC despite frequent education. csmith 07:45 PM HR=67 bpm, OISJ=106/103 mmhg, SpO2=93.0 % 07:48 PM RKZQ=786/100 mmhg 07:54 PM Patient unsure of last name, , etc. during physical exam. csmith 07:54 PM Time: 19:39 Patient comfortable and pain free: Yes csmith 07:54 PM Time: 19:39LOC: 3 = Answers simple questions/follows commands csmith 08:01 PM PCI lesion in Proximal LAD. Pre Stenosis: 90 Pre HANNY Flow: 0: No Flow/No perfusion csmith 08:01 PM Lesion found in Proximal RCA. Pre Stenosis: 40 Pre HANNY Flow: 3: Complete and Brisk Flow/Perfusion csmith 08:01 PM Lesion found in Mid RCA. Pre Stenosis: 50 Pre HANNY Flow: 3: Complete and Brisk Flow/Perfusion csmith 08:01 PM Lesion found in LMCA. Pre Stenosis: 30 Pre HANNY Flow: 3: Complete and Brisk Flow/Perfusion csmith 08:01 PM Lesion found in Proximal Circumflex. Pre Stenosis: 40 Pre HANNY Flow: 3: Complete and Brisk Flow/Perfusion csmith 08:01 PM Lesion found in 1st Marginal. Pre Stenosis: 70 Pre HANNY Flow: 3: Complete and Brisk Flow/Perfusion csmith 08:02 PM Coronary Dominance: right csmith 08:05 PM Before transport out of lab patient with return of chest pain from 0 to 8/9 out of 10, st elevation noted to have returned on lifepak ekg, decision made to re-evaluate, pt to table csmith 08:13 PM Vitals capture started with the following parameters, Patient=Adult, Interval=5 min, Initial Dqeygvrv=816 mmHg, Deflation Rate=5 mmHg, Cuff placed on Right Arm 08:15 PM Patient's groin prepped, to monitors csmith 08:15 PM HR=77 bpm, XCPV=328/112 mmhg, SpO2=95.0 % 08:15 PM Time: 20:15 Versed 2 mg Intravenous Given by Jeramie Green RN csmith 08:15 PM Time: 20:21 Fentanyl 50 mcg Intravenous Given by Jeramie Green RN csmith 08:17 PM Time: 19:54LOC: 4 = Oriented but drowsy csmith 08:19 PM HR=69 bpm, RCRZ=093/97 mmhg, SpO2=95.0 % 08:20 PM RTS paged csmith 08:20 PM Time out performed according to hospital policy csmith 08:20 PM Sheath exchanged for a 6 Fr 11 cm Cordis Viri sheath [id number] csmith 08:21 PM LCA angiography performed in multiple views. csmith 08:21 PM 6Fr XB LAD 3.5 [place] Bright-Tip guide catheter was used to cannulate the PCI vessel successfully. reused? No csmith 08:21 PM 0.035 145cm Navilyst 3mmJ wire [id number] csmith 08:24 PM At 20:24 the ACT was 246 seconds. csmith 08:24 PM HR=68 bpm, VQQP=943/92 mmhg, SpO2=92.0 % 08:[address] morgan discussed case with CT surgeon csmith 08:25 PM Recorded Pressure: Ao, HR=68, Condition=Condition 1 (Aorta) Ao 176/86/123 08:30 PM HR=73 bpm, FATO=952/98 mmhg, SpO2=94.0 % 08:34 PM HR=85 bpm, ANTB=778/100 mmhg, SpO2=96 % 08:39 PM HR=65 bpm, PIUV=334/105 mmhg, SpO2=97 % 08:45 PM HR=87 bpm, TPUX=218/109 mmhg, SpO2=95 % 08:47 PM Time: 20:47 Etomidate 20 mg Intravenous Given by Harinder Maldonado RN [facility] 08:47 PM Time: 20:47 Versed 2.5 mg Intravenous Given by Harinder Maldonado RN [facility] 08:47 PM patient intubated with 7.5 ett @ 23 per RT. decision made to intubate d/t patient contuining to be uncooperative and moving all extremities. pt a risk to self. csmith 08:49 PM Time: 20:49 Fentanyl 50 mcg Intravenous Given by Jeramie Green RN [facility] 08:49 PM HR=79 bpm, ZKRG=753/70 mmhg, SpO2=99.0 % 08:50 PM IV to right forearm infilrated upon RSI med delivery (20 etomidate and 2.5 mg versed administered through this iv but not received, pt still alert after administration) [facility] 08:54 PM HR=74 bpm, IYPA=009/84 mmhg, SpO2=90.0 % 08:54 PM Time: 20:54 Versed 2.5 mg Intravenous Given by Jeramie Green RN [facility] 08:54 PM Time: 20:54 Fentanyl 50 mcg Intravenous Given by Jeramie Green RN [facility] 08:55 PM Time: 20:55 11 ml Lidocaine 2% to left groin Subcutaneous Given by Daysi Morgan MD, [facility] after left groin reprepped [facility] 08:56 PM preppinmg for IABP, dr. morgan talked to family discussing plan of care, severity of situation, etc. csmith 08:59 PM HR=48 bpm, NIBP=71/32 mmhg, SpO2=76.0 % 09:00 PM 7.5 [place] Balloon Pump IABP catheter inserted into left Femoral artery, 40 cc, *ACC* catheter inserted 1 csmith 09:00 PM IABP Settings: 1:1 ratio ekg trigger csmith 09:04 PM HR=48 bpm, NIBP=82/47 mmhg, SpO2=98 % 09:05 PM .014 PT Graphix 182cm guide wire across target lesion- successful. reused? as 2nd wire into LAD No csmith 09:06 PM Time: 21:06 Heparin 3000 units Intravenous Given by Jeramei Green RN [facility] 09:08 PM .014 Prowater 180cm guide wire across target lesion- successful. reused? No into cx csmith 09:10 PM HR=89 bpm, EJFZ=768/82 mmhg, SpO2=95.0 % 09:11 PM Time: 21:11 Heparin 1000 units/hr Intravenous Given by Jeramie Green RN Cabral pump [facility] 09:12 PM Time: 21:12 Fentanyl 100 mcg/min Intravenous Given by Jeramie Green RN Cabral pump [facility] 09:12 PM Time: 21:12 Versed 2 mg/hr Intravenous Given by Jeramie Green RN Cabral pump [facility] 09:14 PM Time: 21:00 Neosynephrine 100 mcg Intravenous Given by Harinder Maldonado RN [facility] 09:14 PM Time: 21:02 Neosynephrine 200 mg Intravenous Given by Harinder Maldonado RN [facility] 09:15 PM Time: 21:04 Dopamine 15 mcg/kg/min Intravenous Given by Harinder Maldonado RN Cabral pump [facility] 09:18 PM IABP Augmented pressure, mean: 165 csmith 09:18 PM IABP Systemic BP: 137/74 csmith 09:21 PM Vitals capture started with the following parameters, Patient=Adult, Interval=5 min, Initial Xmkqaodn=914 mmHg, Deflation Rate=5 mmHg, Cuff placed on Right Arm 09:21 PM HR=96 bpm, VHGU=217/97 mmhg, SpO2=93.0 % 09:22 PM IABP Inserted: Yes. Timing: After PCI has begun csmith 09:22 PM IABP Inserted: Yes csmith 09:23 PM Time: 21:23 Nitroglycerin 200 mcg Intracoronary Given by Daysi Morgan MD, [facility] csmith 09:24 PM vent settings peep 5, 70% FiO2, 400ml tv, rr 12 csmith 09:27 PM RV=513 bpm, WDIW=492/54 mmhg, SpO2=96.0 % 09:30 PM Time: 21:29 Reopro Bolus: 7.5 ml Intracoronary Given by Daysi Morgan MD, [facility] csmith 09:30 PM act drawn and running csmith 09:32 PM At 21:32 the ACT was 307 seconds. csmith 09:32 PM HR=86 bpm, CKSI=416/69 mmhg, SpO2=96.0 % 09:[address] morgan reviewing films csmith 09:36 PM HR=94 bpm, EWVK=122/89 mmhg, SpO2=94.0 % 09:38 PM Time: 21:37 Nitroglycerin 200 mcg Intracoronary Given by Daysi Morgan MD, [facility] csmith 09:41 PM HR=91 bpm, CNXX=816/85 mmhg, SpO2=95.0 % 09:44 PM family updated on condition csmith 09:44 PM IABP sheath sutured to skin csmith 09:47 PM HR=96 bpm, WCDA=098/108 mmhg, SpO2=95.0 % 09:51 PM HR=94 bpm, GVRU=161/89 mmhg, SpO2=97.0 % 09:56 PM HR=81 bpm, WQAD=629/99 mmhg, SpO2=98 % 09:59 PM Julio César Hernandez RT (R) Position: Scrub Time in: 21:00 to relieve Coral Strickland RT (R) csmith 10:00 PM triple lumen cvc inserted into R femoral vein csmith 10:01 PM abg drawn and resulted. csmith 10:01 PM GS=453 bpm, OBVO=078/90 mmhg, SpO2=97.0 % 10:01 PM increased rr to 15, tv to 450bpm on vent per RT csmith 10:05 PM Fentanyl gtt increased to 175 mcg/min and versed at 4 mg/h csmith 10:06 PM HR=99 bpm, KEZA=417/101 mmhg, SpO2=96.0 % 10:06 PM central line and femoral sheath sutured in csmith 10:10 PM Sign out completed: Radiation Dose 1574 mGy Fluoro Time: 19.9 Isovue 370 - 200ml contrast 445 ml given by Daysi Morgan MD, [facility]. Complications: Thrombus and ekg changed requiring re-imaging of coronariesCardiac Rehab Consult needed: YesConfirmed administered medications: Yes [facility] 10:10 PM Time: 21:45 reopro 13 ml/hr Intravenous Given by Jeramie Green RN Cabral pump [facility] 10:12 PM HR=94 bpm, KIYZ=535/68 mmhg, SpO2=96.0 % 10:16 PM HR=74 bpm, BKAA=275/92 mmhg, SpO2=97 % 10:20 PM patient transported to ICU with RT, monitors and IABP. Pt tolerated transport well. [facility] 10:22 PM Vitals capture stopped. Complications Complication Thrombus and ekg changed requiring re-imaging of coronaries Hemodynamics Pressures Site Systolic/A Wave Diastolic/V Wave Mean AO 175 117 144 AO 221 75 134 AO 158 85 116 AO 153 71 107 AO 158 59 101 LV 151 27 33 LV 149 25 17 LV 152 21 21 LV 158 37 41 AO 158 82 120 AO 176 86 123 Post Procedure Information Blood Pressure: 173/90 mmHg Rhythm: NSR Post procedural instructions were given IABP was inserted : After PCI has begun Closure Device Time Device Success/Fail Mechanical Compression Site Checks Time Location Status Staff Sheath In? Note 08:02 PM Rt Groin No bleeding/ No Hematoma Jeramie Green RN 10:06 PM bilateral groin No bleeding/ No Hematoma Julio César Hernandez RT (R) Pulses Time Site Pre-Procedure Post-Procedure Note 11/04/2017 6:59:00 PM Bilateral femoral 2+ 7:40:00 PM Bilateral femoral 2+ Updated by Coral Strickland RT(R) on 11/04/2017 11:02:24 PM electronically signed on 11/04/2017 11:05:46 PM with status of Final
[2017-11-04] MEDS: Heparin 25,000 UNIT/500 ML D5W 25,000 UNIT/500 ML BAG IVC SCH (23:16)
[2017-11-04] MEDS: FentaNYL (PF) 1,000 MCG in 0.9 % Sodium Chloride 80 ML IVC SCH (23:17)
[2017-11-04] MEDS: Norepinephrine 4 MG in D5% in Water 250 ML IVC SCH (23:23)
--- NOTE | 2017-11-04 23:26 | Cardiology History & Physical ---
Date of Encounter: 11/05/17 Time of Encounter: 18:30 Assessment and Plan (1) STEMI (ST elevation myocardial infarction) Current Visit: Yes Status: Acute Pt currently having acute anterior CO. Will proceed emergently to cardiac catheterization lab for emergent LHC and probable PCI. Further recommendations pending clinical course. The assessment and plan as outlined above was discussed with the patient and/or family members who expressed understanding and agreement. All questions were answered. Qualifiers: Involved coronary artery: LAD coronary artery Qualified Code(s): I21.02 - ST elevation (STEMI) myocardial infarction involving left anterior descending coronary artery (2) Diabetes Current Visit: No Status: Chronic Noncompliant with meds. Qualifiers: Diabetes mellitus type: type 2 Diabetes mellitus exterminator helper insulin use: without exterminator helper use Diabetes mellitus complication status: without complication Qualified Code(s): E11.9 - Type 2 diabetes mellitus without complications (3) HTN (hypertension) Current Visit: No Status: Chronic Noncompliant with all meds. Qualifiers: Hypertension type: essential hypertension Qualified Code(s): I10 - Essential (primary) hypertension History of Present Illness Chief complaint: chest pain HPI: Ms. Jose is a 82 year old female with hx CAD s/p PCI, DM, HTN presents to [place] ED with c/o CP. Pt had acute onset of CP radiating to arms/back b/l one hour [employer]. EKG in ED consistent with acute anterior CO. According to , pt has been having intermittent chest discomfort over past week. Took SL NTG a few days ago with relief of chest discomfort. Has known history of CAD and prior PCI. No records available for my review. Per , pt has stopped all meds. States she has confusion, thinks she may have dementia. Pt has refused to see any physicians recently per . Pt poor historian. When asked, pt knows in [facility]. Not oriented to last name- uses maiden name. Thinks year is 1997. Past Med Surg Social Fam HX - Past Medical History Medical history: coronary artery disease, dementia, diabetes, hypertension Psychiatric history: no psych history - Past Surgical History Surgical History: other - Social History Smoking Status: Current every day smoker Smokeless Tobacco Status: No Alcohol use: none Drug use: none Medications and Allergies Amlodipine Besylate 5 mg PO DAILY 01/18/17 [History] Atorvastatin [Lipitor] 20 mg PO HS 01/18/17 [History] Clopidogrel [Plavix] 75 mg PO DAILY 01/18/17 [History] Gabapentin [Neurontin] 300 mg PO HS 01/18/17 [History] Lisinopril [Zestril] 40 mg PO DAILY 01/18/17 [History] Metformin HCl [Metformin HCl ER] 500 mg PO BID 01/18/17 [History] hydroCHLOROthiazide [Hydrochlorothiazide] 12.5 mg PO DAILY 01/18/17 [History] HYDROcodone/Acet 10/325 mg [[place] 10-325 mg] 1 tab PO BID PRN #0 01/20/17 [Rx] 3 Allergy/AdvReac Type Severity Reaction Status Date / Time aspirin Allergy See Verified 05/25/16 17:16 Comments ibuprofen [From Motrin] Allergy See Verified 05/25/16 17:16 Comments All Systems Review: The remainder of the systems were reviewed and are negative - Cardiovascular Cardiovascular: as per HPI Physical Examination Vital Signs, Last 4 Hours Temp Pulse Resp BP 11/04/17 22:50 97.6 F 92 26 70/49 General: Other (appears in significant distress, pain) HEENT: Atraumatic, Normocephaly, Mucus Membranes Moist Neck: No JVD, Normal carotid pulses Cardiac: Reg Rate and Rhythm, Normal S1 and S2, No Murmur Lungs: Normal Breath Sounds, No Wheeze, Rales, Rhonchi Neuro: Alert and responsive, Other (oriented to place, not to time or last name) Abdomen: Soft, Non-Tender Skin: No rashes noted on visualized skin Musculoskeletal: No Chest Wall Tenderness Extremities: No Clubbing, No Cyanosis, No Edema, Normal Pulses Results 11/04/17 18:18 11/04/17 18:18 - EKG Interpretation EKG results cardiology: personally reviewed - VTE Reasons for not Prescribing Prophylaxis: Not indicated-Anticoagulated or INR therapeutic
[2017-11-04] MEDS: Insulin LISPRO 300 UNITS/3 ML VIAL SQ SCH (23:33)
[2017-11-05 00:40] LABS: Activated Partial Thrombo Time > 360.0 Seconds (26.0-36.0)
[2017-11-05 00:41] LABS: Heparin anti-factor XA UFH 1.92 IU/mL (0.30-0.70)
[2017-11-05] MEDS: FentaNYL (PF) 1,000 MCG in 0.9 % Sodium Chloride 80 ML IVC SCH ×3 (01:45→16:53)
[2017-11-05 03:58] LABS: Basophils # 0.1 K/mcL (0.0-0.2); Basophils % 0.3 %; Eosinophils # 0.2 K/mcL (0.0-0.6); Hematocrit 41.9 % (35.3-44.9); Immature Granulocytes % 0.4 % (0-4); Lymphocytes # 2.1 K/mcL (0.6-4.6); Lymphocytes % 13.4 %; Mean Corpuscular HGB Conc 34.4 g/dL (31.6-35.5); Mean Corpuscular Hemoglobin 30.6 pg (28.0-33.3); Mean Platelet Volume 10.3 fL (9.4-12.4); Monocytes % 12.7 %; Neutrophils # 11.4 K/mcL (1.6-8.9); Platelet Count 352 K/mcL (140-400); Red Blood Count 4.71 M/mcL (3.82-4.97); Red Cell Distribution Width 13.2 % (11.5-14.5); Segmented Neutrophils % 72.2 %
[2017-11-05 03:59] LABS: Hemoglobin 14.4 g/dL (11.5-15.4)
[2017-11-05 04:20] LABS: BUN/Creatinine Ratio 15 (6-26); Blood Urea Nitrogen 13 mg/dL (8-23); Calcium 8.3 mg/dL (8.6-10.3); Carbon Dioxide 23 mEq/L (23-29); Chloride 112 mEq/L (98-107); Chol/HDL Ratio 3.6 (0-4.9); Cholesterol 151 mg/dL (< 200); Glucose 65 mg/dL (70-105); HDL Cholesterol 42 mg/dL (40-59); LDL Cholesterol,Calculated 96 mg/dL (0-99); Osmolality,Calculated 292 (280-300); Potassium 3.3 mEq/L (3.5-5.1); Sodium 142 mEq/L (136-145); Triglycerides 64 mg/dL (< 150); eGFR For African Americans > 60 (> 60); eGFR For Non-African Americans > 60 (> 60)
[2017-11-05 04:25] LABS: Troponin I > 73.00 ng/mL (< 0.04)
[2017-11-05 04:33] LABS: Thyroid Stimulating Hormone 0.581 mcIU/mL (0.340-5.600)
[2017-11-05 04:59] LABS: ABG Base Excess -1 mEq/L (-2 to 3); ABG HCO3 23 mEq/L (21-27); ABG Oxygen Saturation 97 % (95-98); ABG PCO2 37 mmHg (35-45); ABG PH 7.41 pH Units (7.32-7.45); ABG PO2 89 mmHg (85-104); ABG TCO2 24 mEq/L (20-26); Blood Gas Modality VC; Blood Gas PEEP 5 cm H2O; Blood Gas Respiration Rate 14; Blood Gas VT 450 cc
[2017-11-05] MEDS: Insulin LISPRO 300 UNITS/3 ML VIAL SQ SCH ×3 (05:51→17:51)
[2017-11-05 07:32] LABS: Estimated Average Glucose 134 mg/dl; Hemoglobin A1C 6.3 %
[2017-11-05] MEDS: Aspirin 81 MG TAB.CHEW PO SCH (07:58)
--- NOTE | 2017-11-05 09:19 | Cardiothoracic Consult Note ---
Date of Encounter: 11/05/17 Time of Encounter: 10:11 Assessment and Plan (1) Postprocedural cardiogenic shock, initial encounter Current Visit: Yes Status: Acute Cardiogenic shock following PTCA and stenting of in-stent proximal LAD stenosis complicated by thrombosis requiring thrombolytics. Now on IABP, Levophed and dopamine. Intra-aortic balloon pump advanced so that tip was more ideal position for augmentation. Notable diminished Doppler signals in the left foot. Recommended increasing vasopressors for mean pressure of 70 or greater and close monitoring of pedal pulses. Qualifiers: Encounter type: initial encounter Qualified Code(s): T81.11XA - Postprocedural cardiogenic shock, initial encounter (2) STEMI (ST elevation myocardial infarction) Current Visit: Yes Status: Acute Cardiogenic shock, post PTCI stenting of in-stent stenosis of proximal LAD complicated by thrombosis requiring thrombolytic therapy. Now on IABP, Inotropes and pressors. Advanced IABP to optimize augmentation. Recommend increase in Levophed to MAP of 70 and close monitoring of pedal pulses. Qualifiers: Involved coronary artery: LAD coronary artery Qualified Code(s): I21.02 - ST elevation (STEMI) myocardial infarction involving left anterior descending coronary artery (3) Accidental medication overdose Current Visit: No Status: Acute The assessment and plan as outlined above was discussed with the patient and/or family members who expressed understanding and agreement. All questions were answered. Qualifiers: Encounter type: initial encounter Qualified Code(s): T50.901A - Poisoning by unspecified drugs, medicaments and biological substances, accidental ( unintentional), initial encounter (4) Acute metabolic encephalopathy Current Visit: No Status: Acute The assessment and plan as outlined above was discussed with the patient and/or family members who expressed understanding and agreement. All questions were answered. (5) Altered mental status Current Visit: Yes Status: Acute The assessment and plan as outlined above was discussed with the patient and/or family members who expressed understanding and agreement. All questions were answered. Qualifiers: Altered mental status type: disorientation Qualified Code(s): R41.0 - Disorientation, unspecified (6) Elevated troponin Current Visit: No Status: Acute The assessment and plan as outlined above was discussed with the patient and/or family members who expressed understanding and agreement. All questions were answered. - History of Present Illness Consult date: 11/05/17 Requesting physician: Daysi Morgan Consult reason: Evaluation for CABG Chief complaint: Chest pain History of present illness: Patient seen and examined.in summary, Ms. Jose is a 82 year old white, obese female with history of coronary disease (status post LAD angioplasty stenting in approximately 1987), hypertension, diabetes mellitus, and reportedly dementia who reportedly had been noncompliant with her medications according to her who provided her history when she presented to the emergency room with chest pain. She was evaluated by cardiology (Dr. Daysi Morgan) and taken to the catheter lab yesterday evening (11/04/2017). She was found to have in-stent stenosis of her mid LAD stent and underwent angioplasty and stenting which reportedly resulted in an initial successful angiogram, however, the patient subsequently was noted to have dissection of her LAD involving her left main. I discussed the case with Dr. Morgan and given the patient's age and risk factors for emergent CABG recommended consideration for an enteric balloon pump and possible high risk angioplasty either here or preferably at a tertiary center given the complexity of her problem. I did feel the patient was too high risk for an emergent CABG and understood that she was relatively stable at the time with reported flow down her LAD. Reportedly, after my conversation with Dr. Morgan she underwent another angiogram which demonstrated clot in her proximal LAD which was treated with ReoPro. She had an enteric balloon pump placed and was transferred to the CVICU on dopamine with clinical signs of cardiac shock. Currently the patient is on 10 mcg/kg/m dopamine and 15 mics per minute levothyroid with intra-aortic balloon counterpulsation time to the patient's arterial waveform given atrial fibrillation and associated arrhythmias. She has good augmentation with her balloon pump however is relatively hypotension with augmented pressures in the 80s. Her mean arterial pressure was in the 50s. Review the patient's chest x-ray revealed that her IABP was positioned somewhat low in her descending thoracic aorta. Therefore, I advanced the balloon pump and repeated her chest x-ray balloon pump tip now is close to the takeoff of the left subclavian in more ideal position. Additionally, her liver failure was increased and now her mean pressures and augmented pressures are significantly improved. I recommended we continue to target mean arterial pressures as 70 or greater. Additionally, recommended that we obtain Doppler signals of the patient's left lower extremity pedal pulses as the patient is at significant risk for possible lower extremity ischemia given she is female. Able to find a faint Doppler signal and left distal dorsalis pedis, however, both feet are relatively cool and we will plan close monitoring of pulses with attempts to increase perfusion pressure. Plan to nursing of bedside. Past Med Surg Social Fam HX - Past Medical History Source: unable to obtain Medical history: diabetes, hypertension Psychiatric history: no psych history - Past Surgical History Surgical History: other (unable to obtain) - Social History Smoking Status: Current every day smoker Smokeless Tobacco Status: No Alcohol use: none Drug use: none Medications and Allergies Amlodipine Besylate 5 mg PO DAILY 01/18/17 [History] Atorvastatin [Lipitor] 20 mg PO HS 01/18/17 [History] Clopidogrel [Plavix] 75 mg PO DAILY 01/18/17 [History] Gabapentin [Neurontin] 300 mg PO HS 01/18/17 [History] Lisinopril [Zestril] 40 mg PO DAILY 01/18/17 [History] Metformin HCl [Metformin HCl ER] 500 mg PO BID 01/18/17 [History] hydroCHLOROthiazide [Hydrochlorothiazide] 12.5 mg PO DAILY 01/18/17 [History] HYDROcodone/Acet 10/325 mg [[place] 10-325 mg] 1 tab PO BID PRN #0 01/20/17 [Rx] 3 Allergy/AdvReac Type Severity Reaction Status Date / Time aspirin Allergy See Verified 05/25/16 17:16 Comments ibuprofen [From Motrin] Allergy See Verified 05/25/16 17:16 Comments All Systems Review: See HPI for pertinents - Constitutional Constitutional: other (Reported history of dementia) - Cardiovascular Cardiovascular: other (Known history of coronary disease status post angioplasty stenting of LAD as stated in history of present illness) - Psychiatric Psychiatric: other (Reported history of dementia and confusion) Physical Examination Vital Signs, Last 4 Hours Temp Pulse Resp BP Pulse Ox 11/05/17 08:30 99.3 F 11/05/17 08:00 92 14 106/50 96 11/05/17 07:28 18 87/44 99 11/05/17 07:15 78 11/05/17 07:00 75 18 95/39 99 11/05/17 06:00 75 18 89/49 99 11/05/17 05:34 70 11/05/17 05:22 14 102/23 99 General: Other (Sedated, on ventilator, evidence of cardiogenic shock improved with increased Levophed and repositioning of balloon pump) HEENT: Other (Endotracheal tube in place) Cardiac: Other (Atrial fibrillation with frequent ectopy requiring balloon pump to be augmenting using arterial pressure triggering) Vascular: Other (Mean arterial pressure in 50s to 60s, notable faint Doppler signal in left distal dorsalis pedis, other pulses not dopplerable this time and pedal regions) Extremities: Other (Intra-aortic balloon pump in the left femoral groin secured , within sheath, advanced approximately to 3 cm with repeat chest x-ray demonstrated good position of balloon pump to) Results 11/05/17 03:30 11/05/17 03:30 Lab Results, Last 24 hours 11/04/17 11/05/17 11/05/17 22:40 03:30 03:30 WBC 15.8 H D Hgb 14.4 D Hct 41.9 Plt Count 352 APTT > 360.0 H* D Sodium 142 Potassium 3.3 L Chloride 112 H Carbon Dioxide 23 BUN 13 Creatinine 0.85 Glucose 65 L Calcium 8.3 L Troponin I > 73.00 H* TSH 0.581 11/05/17 05:15 WBC Hgb Hct Plt Count APTT 50.3 H D Sodium Potassium Chloride Carbon Dioxide BUN Creatinine Glucose Calcium Troponin I TSH - Imaging Chest Xray: other (Repeat portable chest x-ray at bedside after advancing balloon pump demonstrated balloon pump to an ideal position) Consult Discharge Plan - Plan Referrals: NONE,PCP [Primary Care Provider] -
[2017-11-05 10:08] LABS: ABG Base Excess -3 mEq/L (-2 to 3); ABG HCO3 20 mEq/L (21-27); ABG Oxygen Saturation 96 % (95-98); ABG PCO2 30 mmHg (35-45); ABG PH 7.43 pH Units (7.32-7.45); ABG PO2 80 mmHg (85-104); ABG TCO2 21 mEq/L (20-26); Blood Gas PEEP 5 cm H2O; Blood Gas Respiration Rate 14; Blood Gas VT 450 cc
[2017-11-05 10:28] LABS: BUN/Creatinine Ratio 14 (6-26); Blood Urea Nitrogen 13 mg/dL (8-23); Calcium 8.4 mg/dL (8.6-10.3); Carbon Dioxide 21 mEq/L (23-29); Chloride 111 mEq/L (98-107); Glucose 211 mg/dL (70-105); Osmolality,Calculated 298 (280-300); Potassium 2.8 mEq/L (3.5-5.1); Sodium 141 mEq/L (136-145); eGFR For African Americans > 60 (> 60); eGFR For Non-African Americans 57 (> 60)
[2017-11-05] MEDS: Potassium Chloride 40 MEQ/200 ML BAG IVPB PRN ×2 (10:44→16:45)
--- NOTE | 2017-11-05 11:00 | Pulmonology Consult Note ---
<Beck Garcia W - Last Filed: 11/05/17 14:31> Date of Encounter: 11/05/17 Medications and Allergies Amlodipine Besylate 5 mg PO DAILY 01/18/17 [History] Atorvastatin [Lipitor] 20 mg PO HS 01/18/17 [History] Clopidogrel [Plavix] 75 mg PO DAILY 01/18/17 [History] Gabapentin [Neurontin] 300 mg PO HS 01/18/17 [History] Lisinopril [Zestril] 40 mg PO DAILY 01/18/17 [History] Metformin HCl [Metformin HCl ER] 500 mg PO BID 01/18/17 [History] hydroCHLOROthiazide [Hydrochlorothiazide] 12.5 mg PO DAILY 01/18/17 [History] HYDROcodone/Acet 10/325 mg [[place] 10-325 mg] 1 tab PO BID PRN #0 01/20/17 [Rx] 3 Allergy/AdvReac Type Severity Reaction Status Date / Time aspirin Allergy See Verified 05/25/16 17:16 Comments ibuprofen [From Motrin] Allergy See Verified 05/25/16 17:16 Comments All Systems: The remainder of the systems were reviewed and are negative Physical Examination Vital Signs: Vital Signs, Last 4 Hours Temp Pulse Resp BP Pulse Ox 11/05/17 14:00 61 14 90/42 100 11/05/17 13:00 65 14 79/41 100 11/05/17 12:00 99.2 F 68 14 73/37 100 11/05/17 11:00 68 14 56/35 99 Ventilator Settings Ventilator Settings: Ventilator Settings, Last 8 Hours Ventilator Mode VC+ Ventilator Mode VC+ Ventilator Mode VC+ Ventilator Mode VC+ Ventilator Mode VC+ Ventilator Mode VC+ Ventilator Mode VC+ Ventilator Mode VC+ Ventilator Mode VC+ Ventilator Tidal Volume 450 Setting Ventilator Tidal Volume 450 Setting Ventilator Tidal Volume 450 Setting Ventilator Tidal Volume 450 Setting Ventilator Tidal Volume 450 Setting Ventilator Tidal Volume 450 Setting Ventilator Tidal Volume 450 Setting Ventilator Tidal Volume 450 Setting Ventilator Tidal Volume 450 Setting Ventilator Respiratory Rate 14 Setting Ventilator Respiratory Rate 14 Setting Ventilator Respiratory Rate 14 Setting Ventilator Respiratory Rate 14 Setting Ventilator Respiratory Rate 14 Setting Ventilator Respiratory Rate 14 Setting Ventilator Respiratory Rate 14 Setting Ventilator Respiratory Rate 14 Setting Ventilator Respiratory Rate 14 Setting Actual Respiratory Rate 14 Actual Respiratory Rate 14 Actual Respiratory Rate 14 Actual Respiratory Rate 14 Actual Respiratory Rate 14 Actual Respiratory Rate 14 Actual Respiratory Rate 15 Actual Respiratory Rate 15 Positive End Expiratory 5 Pressure Positive End Expiratory 5 Pressure Positive End Expiratory 5 Pressure Positive End Expiratory 5 Pressure Positive End Expiratory 5 Pressure Positive End Expiratory 5 Pressure Positive End Expiratory 5 Pressure Positive End Expiratory 5 Pressure Positive End Expiratory 5 Pressure Peak Inspiratory Airway 19 Pressure Peak Inspiratory Airway 19 Pressure Peak Inspiratory Airway 19 Pressure Peak Inspiratory Airway 19 Pressure Peak Inspiratory Airway 19 Pressure Peak Inspiratory Airway 19 Pressure Peak Inspiratory Airway 19 Pressure Peak Inspiratory Airway 18 Pressure Results - Laboratory Findings CBC and BMP: 11/05/17 03:30 11/05/17 09:54 ABG ABG pH 7.43 pH Units (7.32-7.45) 11/05/17 10:02 ABG pCO2 30 mmHg (35-45) L 11/05/17 10:02 ABG pO2 80 mmHg (85-104) L 11/05/17 10:02 ABG O2 Saturation 96 % (95-98) 11/05/17 10:02 PT/INR, D-dimer PT 11.2 Seconds (9.4-12.1) 11/04/17 18:18 Abnormal lab findings: Abnormal lab results WBC 15.8 K/mcL (4.3-11.1) H D 11/05/17 03:30 Neutrophils # 11.4 K/mcL (1.6-8.9) H 11/05/17 03:30 Monocytes # 2.0 K/mcL (0.0-1.3) H 11/05/17 03:30 APTT 37.6 Seconds (26.0-36.0) H 11/05/17 11:25 Heparin Anti-Xa, Unfract 1.92 IU/mL (0.30-0.70) H* 11/04/17 22:40 ABG pCO2 30 mmHg (35-45) L 11/05/17 10:02 ABG pO2 80 mmHg (85-104) L 11/05/17 10:02 ABG HCO3 20 mEq/L (21-27) L 11/05/17 10:02 ABG Base Excess -3 mEq/L (-2 to 3) L 11/05/17 10:02 Potassium 2.8 mEq/L (3.5-5.1) L 11/05/17 09:54 Chloride 111 mEq/L (98-107) H 11/05/17 09:54 Carbon Dioxide 21 mEq/L (23-29) L 11/05/17 09:54 Est GFR (Non-Af Amer) 57 (> 60) L 11/05/17 09:54 Glucose 211 mg/dL (70-105) H 11/05/17 09:54 POC Glucose 205 mg/dL (70-99) H 11/04/17 22:34 Hemoglobin A1c 6.3 % (-5.6) H 11/05/17 03:30 Calcium 8.4 mg/dL (8.6-10.3) L 11/05/17 09:54 Troponin I > 73.00 ng/mL (< 0.04) H* 11/05/17 03:30 - Clinical Findings Intake & Output: Intake & Output 11/04/17 11/05/17 11/05/17 23:59 07:59 15:59 Intake Total 650 / 650 1549 / 1549 Output Total 1750 / 1750 175 / 175 Balance -1100 / -1100 1374 / 1374 Consult Discharge Plan - Plan Referrals: NONE,PCP [Primary Care Provider] - - Attending Attestation I examined this patient and my medical decision-making was reviewed with the Resident Physician. I agree with the documented findings, disposition and treatment plan as described except to the extent set forth below. We independently had [id number] contact with the patient I spent 32min of Critical Care time with this patient. It involved decision making of high complexity to assess, manipulate, and support vital organ system failure and/or to prevent further life threatening deterioration of the patient' s condition. The time involved in the performance of separately reportable procedures was not counted toward critical care time. Patient seen and examined at bedside Labs, radiology, chart personally reviewed. Management was reviewed during multidisciplinary critical care rounds. VAULT TELLER: The patient is deeply sedated on the vent she does have spontaneous movements and does withdraw to pain. She is not a candidate for spontaneous awakening trial because of ongoing cardiac ischemia Pulm: presented with acute hypoxic respiratory failure secondary to hydrostatic pulmonary edema from heart failure. Acceptable oxygenation on fairly minimal vent settings right now which is encouraging. Recommend keeping deeply sedated because of ongoing cardiac ischemia and we will continue to monitor vent parameters daily in general would recommend low tidal volume ventilatory strategy as possible Cards: The patient's in cardiogenic shock secondary to acute ST elevation NE. She has a balloon pump in place cardiology and cardiothoracic surgery are following this patient closely she is on maximal medical therapy for STEMI post PCI. She remains on dual vasopressors for support of shock. Also having close monitoring of her distal vascular perfusion. FEN-GI: Nothing by mouth for now GI prophylaxis given Renal: Urine output monitored she is at high risk for renal ischemia ID: She has a leukocytosis which I suspect is secondary to stress response from myocardial infarction. Cannot fully exclude possibility of sepsis and will culture the patient broadly with plan to start antimicrobials if any evidence of infection or worsening leukocytosis/fever Heme/Onc: She is on a heparin infusion and will need close monitoring of her hemoglobin and hematocrit she is also at risk as well as cytopenia secondary to indwelling balloon pump Endo: Glucose Monitored Integ/MSK: Skin Care per routine ICU Nursing Protocol to prevent ulcers. Lines: All lines examined without evidence of infection : Dispo: Remain in ICU for critical illness CODE: Full code overall prognosis very gram I discussed the case with the patient's surrogate decision maker her at bedside at this point she is full code would likely need palliative care consultation based upon clinical course <Kadeem Lai - Last Filed: 11/05/17 17:07> Date of Encounter: 11/05/17 Time of Encounter: 10:57 Assessment and Plan (1) STEMI (ST elevation myocardial infarction) Current Visit: Yes Status: Acute Patient presented with chest pain; extensive cardiac history EKG demonstrated ST elevation in leads V1, V2, V3, V4 - STEMI alert called, patient placed on heparin drip - Patient taken to [facility] on 11/04/17 - Patient found to have in-stent stenosis of mid LAD stent; underwent angioplasty and stenting - Initial angiogram was successful; patient subsequently noted to have dissection of LAD involving left main - Repeat angiogram demonstrated clot in proximal LAD; was treated with ReoPro - IABP was placed - Patient was transferred to ICU for further management Plan: - ASA 81 mg by mouth daily - Plavix 75 mg by mouth daily - Heparin drip - Continuous telemetry Qualifiers: Involved coronary artery: LAD coronary artery Qualified Code(s): I21.02 - ST elevation (STEMI) myocardial infarction involving left anterior descending coronary artery (2) Acute respiratory failure Current Visit: Yes Status: Acute Patient is currently intubated and sedated ABGs: - 7.23/59/94/// - 7.43/30/80/ Current vent settings: Inspired O2 30, tidal volume 450, PEEP 5 - Fentanyl, Versed for sedation - Continuous telemetry, pulse oximetry Qualifiers: Qualified Code(s): J96.00 - Acute respiratory failure, unspecified whether with hypoxia or hypercapnia (3) Cardiogenic shock Current Visit: Yes Status: Acute IABP in place; per CT surgery, target MAP at 70 or greater - Dopamine 400 mg IVC 15 mcg/kg/m - Levophed - We will continue close monitoring of vital signs (4) Hypokalemia Current Visit: Yes Status: Acute Potassium was low today at 2.8 - Replacement has been ordered - Continuous telemetry - Repeat a.m. labs (5) Leukocytosis Current Visit: Yes Status: Acute - Patient has had an increase in white count; 15.8 (10.3) - Repeat a.m. labs Qualifiers: Qualified Code(s): D72.829 - Elevated white blood cell count, unspecified (6) CAD (coronary artery disease) Current Visit: Yes Status: Acute - Patient has known history of coronary artery disease - ASA 81 mg by mouth daily - Plavix 75 mg by mouth daily Qualifiers: Qualified Code(s): I25.10 - Atherosclerotic heart disease of [place] coronary artery without angina pectoris (7) Diabetes Current Visit: No Status: Chronic - Sliding scale insulin, medium dose corrective schedule Qualifiers: Diabetes mellitus type: type 2 Diabetes mellitus ferry terminal agent insulin use: without ferry terminal agent use Diabetes mellitus complication status: without complication Qualified Code(s): E11.9 - Type 2 diabetes mellitus without complications (8) Hyperlipidemia Current Visit: Yes Status: Acute - Lipitor 80 mg by mouth at bedtime Qualifiers: Qualified Code(s): E78.5 - Hyperlipidemia, unspecified (9) DVT prophylaxis Current Visit: No Status: Acute - Currently on heparin drip History of Present Illness Consult date: 11/05/17 Reason for consult: other (Acute respiratory failure) Chief complaint: Chest pain History of present illness: Ms. Jose is an 82-year-old female with a PMH of HTN, HLD, CAD, 4-5 stents in the past. Presented to [facility] on 11/04/17 due to chest pain. EKG transmitted prior to arrival demonstrated ST elevation in leads V1, V2, V3, V4. STEMI alert was called prior to squad arriving. Chest pain started in the center of her chest, radiated to back, was progressively worsening. Described as an intense pressure, rated 10/10. Endorsed mild sweating and SOB. Denied having any N/V, fevers, abdominal pain, diarrhea. Respiratory rate 24 and BP elevated at 167/110 on arrival. All other vitals were WNL. was present; reported that patient was noncompliant with medications for HTN, HLD, CAD for past several months. Patient was given Plavix due to her allergy to ASA. Was also placed on heparin drip. reeling operator Dr. Morgan was called. Pt. taken to catheter lab. Was found to have in-stent stenosis of mid LAD stent; underwent angioplasty and stenting. Resulted in an initial successful angiogram. Patient subsequently was noted to have dissection of her LAD involving her L main. Based on the assessment of cardiothoracic surgery, patient was too high risk for an emergent CABG. Patient underwent another angiogram which demonstrated clot in her proximal LAD which was treated with ReoPro. An enteric balloon pump was placed, patient was transferred to ICU on dopamine with clinical signs of cardiac shock. Patient currently on 10 mcg/kg/m of dopamine and 15 mics per minute of Levophed. Per the recommendations of cardiothoracic surgery, target mean arterial pressures as 70 or greater. Close monitoring of LE pulses advised due to significant risk of LE ischemia. Currently intubated and sedated; inspired O2 30, tidal volume 450, PEEP of 5. Past Med Surg Social Fam HX - Past Medical History Medical history: diabetes, hypertension Psychiatric history: no psych history - Past Surgical History Surgical History: other (unable to obtain) - Social History Smoking Status: Current every day smoker Smokeless Tobacco Status: No Alcohol use: none Drug use: none ROS unobtainable: due to endotracheal tube All Systems: The remainder of the systems were reviewed and are negative Physical Examination Vital Signs: Vital Signs, Last 4 Hours Temp Pulse Resp BP Pulse Ox 11/05/17 10:00 67 14 73/49 99 11/05/17 09:00 75/36 11/05/17 08:30 99.3 F 11/05/17 08:00 92 14 106/50 96 11/05/17 07:28 18 87/44 99 11/05/17 07:15 78 11/05/17 07:00 75 18 95/39 99 General appearance: no acute distress, asleep Neck: supple Effort: normal Inspection: normal Auscultation: bilateral: diminished breath sounds Cardiovascular: regular rate and rhythm Integumentary: normal Extremities: no cyanosis, no edema, no clubbing Musculoskeletal: no deformities unable to assess due to mental status Ventilator Settings Ventilator Settings: Ventilator Settings, Last 8 Hours Ventilator Mode VC+ Ventilator Mode VC+ Ventilator Mode VC+ Ventilator Mode VC+ Ventilator Mode VC+ Ventilator Mode VC+ Ventilator Mode VC+ Ventilator Mode VC+ Ventilator Mode VC+ Ventilator Mode VC+ Ventilator Mode VC+ Ventilator Mode VC+ Ventilator Tidal Volume 450 Setting Ventilator Tidal Volume 450 Setting Ventilator Tidal Volume 450 Setting Ventilator Tidal Volume 450 Setting Ventilator Tidal Volume 450 Setting Ventilator Tidal Volume 450 Setting Ventilator Tidal Volume 450 Setting Ventilator Tidal Volume 450 Setting Ventilator Tidal Volume 450 Setting Ventilator Tidal Volume 450 Setting Ventilator Tidal Volume 450 Setting Ventilator Tidal Volume 450 Setting Ventilator Respiratory Rate 14 Setting Ventilator Respiratory Rate 14 Setting Ventilator Respiratory Rate 14 Setting Ventilator Respiratory Rate 14 Setting Ventilator Respiratory Rate 14 Setting Ventilator Respiratory Rate 14 Setting Ventilator Respiratory Rate 14 Setting Ventilator Respiratory Rate 14 Setting Ventilator Respiratory Rate 14 Setting Ventilator Respiratory Rate 14 Setting Ventilator Respiratory Rate 14 Setting Ventilator Respiratory Rate 14 Setting Actual Respiratory Rate 14 Actual Respiratory Rate 14 Actual Respiratory Rate 15 Actual Respiratory Rate 15 Actual Respiratory Rate 15 Actual Respiratory Rate 14 Actual Respiratory Rate 15 Actual Respiratory Rate 15 Actual Respiratory Rate 15 Actual Respiratory Rate 15 Positive End Expiratory 5 Pressure Positive End Expiratory 5 Pressure Positive End Expiratory 5 Pressure Positive End Expiratory 5 Pressure Positive End Expiratory 5 Pressure Positive End Expiratory 5 Pressure Positive End Expiratory 5 Pressure Positive End Expiratory 5 Pressure Positive End Expiratory 5 Pressure Positive End Expiratory 5 Pressure Positive End Expiratory 5 Pressure Positive End Expiratory 5 Pressure Peak Inspiratory Airway 19 Pressure Peak Inspiratory Airway 19 Pressure Peak Inspiratory Airway 19 Pressure Peak Inspiratory Airway 18 Pressure Peak Inspiratory Airway 18 Pressure Peak Inspiratory Airway 17 Pressure Peak Inspiratory Airway 18 Pressure Peak Inspiratory Airway 17 Pressure Peak Inspiratory Airway 19 Pressure Peak Inspiratory Airway 19 Pressure Results - Laboratory Findings CBC and BMP: 11/05/17 16:00 11/05/17 16:00 ABG ABG pH 7.43 pH Units (7.32-7.45) 11/05/17 10:02 ABG pCO2 30 mmHg (35-45) L 11/05/17 10:02 ABG pO2 80 mmHg (85-104) L 11/05/17 10:02 ABG O2 Saturation 96 % (95-98) 11/05/17 10:02 PT/INR, D-dimer PT 11.2 Seconds (9.4-12.1) 11/04/17 18:18 Abnormal lab findings: Abnormal lab results WBC 15.8 K/mcL (4.3-11.1) H D 11/05/17 03:30 Neutrophils # 11.4 K/mcL (1.6-8.9) H 11/05/17 03:30 Monocytes # 2.0 K/mcL (0.0-1.3) H 11/05/17 03:30 APTT 50.3 Seconds (26.0-36.0) H D 11/05/17 05:15 Heparin Anti-Xa, Unfract 1.92 IU/mL (0.30-0.70) H* 11/04/17 22:40 ABG pCO2 30 mmHg (35-45) L 11/05/17 10:02 ABG pO2 80 mmHg (85-104) L 11/05/17 10:02 ABG HCO3 20 mEq/L (21-27) L 11/05/17 10:02 ABG Base Excess -3 mEq/L (-2 to 3) L 11/05/17 10:02 Potassium 2.8 mEq/L (3.5-5.1) L 11/05/17 09:54 Chloride 111 mEq/L (98-107) H 11/05/17 09:54 Carbon Dioxide 21 mEq/L (23-29) L 11/05/17 09:54 Est GFR (Non-Af Amer) 57 (> 60) L 11/05/17 09:54 Glucose 211 mg/dL (70-105) H 11/05/17 09:54 POC Glucose 205 mg/dL (70-99) H 11/04/17 22:34 Hemoglobin A1c 6.3 % (-5.6) H 11/05/17 03:30 Calcium 8.4 mg/dL (8.6-10.3) L 11/05/17 09:54 Troponin I > 73.00 ng/mL (< 0.04) H* 11/05/17 03:30 - Clinical Findings Intake & Output: Intake & Output 11/04/17 11/05/17 11/05/17 23:59 07:59 15:59 Intake Total 650 / 650 425 / 425 Output Total 1750 / 1750 Balance -1100 / -1100 425 / 425
[2017-11-05] MEDS: Norepinephrine 4 MG in D5% in Water 250 ML IVC SCH ×2 (11:27→16:22)
[2017-11-05 11:30] LABS: Magnesium 1.8 mg/dL (1.6-2.6)
--- NOTE | 2017-11-05 11:36 | Cardiology Progress Note ---
Date of Encounter: 11/05/17 Time of Encounter: 09:00 Assessment and Plan (1) STEMI (ST elevation myocardial infarction) Current Visit: Yes Status: Acute Per cardiology: -Patient with anterior STEMI. Was taken emergently to mechanical shop laborer yesterday. Underwent PCI to LAD with ELIO. -Per discussion with Dr.Jennifer Morgan, patient had ECG changes after first procedure and then underwent another angiogram with clot burden noted in LAD. -Patient was given IC reopro and started on reopro drip. IABP was placed. -Patient currently intubated in ICU, sedated. IABP 1:[address] On vasopressors for BP support. -BPs very labile and very sensitive to vasopressor titration. -Of note, having short runs of non-sustained VT. -Currently on heparin drip, reopro drip, dopamine, levophed, versed drip, fentanyl drip. -On asa, plavix. Not on beta william due to hypotension. -TTE pending. -Discussed and reviewed with Dr.Jennifer Morgan, will stop reopro drip, has been on for 12 hours. -Will stop dopamine due to non-sustained VT. -K 2.8-rider given, Mg 1.8-rider given. -Will consult pulmonary for assistance with ventilator management. -Patient is critically ill. Discussed with patients . -Will continue to monitor. Qualifiers: Involved coronary artery: LAD coronary artery Qualified Code(s): I21.02 - ST elevation (STEMI) myocardial infarction involving left anterior descending coronary artery Discussion w patient/family: The assessment and plan as outlined above was discussed with the patient and/or family members who expressed understanding and agreement. All questions were answered. Thank you for involving us in the care of your patient. Please call with any questions. Discussed and reviewed with Dr.Jennifer Morgan. Subjective Principal diagnosis: STEMI Interval history: Patient intubated and sedated. IABP in place. On vasopressors. BP labile. Objective Vital Signs, Last 4 Hours Temp Pulse Resp BP Pulse Ox 11/05/17 11:00 68 14 56/35 99 11/05/17 10:00 67 14 73/49 99 11/05/17 09:00 75/36 11/05/17 08:30 99.3 F 11/05/17 08:00 92 14 106/50 96 General: Other (Intubated and sedated. ) HEENT: Atraumatic, Normocephaly, Mucus Membranes Moist Neck: No JVD, Normal carotid pulses Cardiac: Reg Rate and Rhythm, Normal S1 and S2, No Murmur Lungs: Normal Breath Sounds, No Wheeze, Rales, Rhonchi, Other (Intubated, vent setting with RR 14, Vt 450, FiO2 30%, PEEP 5. ) Neuro: Other (Intubated and sedated) Abdomen: Soft Skin: No rashes noted on visualized skin Musculoskeletal: No Chest Wall Tenderness, Other (IABP intact with 1:1. Bilateral groin accesses without hematoma. ) Extremities: No Clubbing, No Cyanosis, No Edema, Other (Bilateral DP per doppler. ) Results 11/05/17 03:30 11/05/17 09:54 Lab Results Imp Active Medications Aspirin (Aspirin) 81 mg PO DAILY JORGE Stop: 05/07/18 09:01 Atorvastatin Calcium (Lipitor) 80 mg PO HS JORGE Stop: 05/07/18 21:01 Clopidogrel Bisulfate (Plavix) 75 mg PO DAILY JORGE Stop: 05/07/18 09:01 Dextrose/Water (Dextrose 50% (Syg)) 25 ml IVP AD PRN PRN Reason: Hypoglycemia Stop: 05/06/18 23:03 Glucagon (Glucagen) 1 mg IM ONCE PRN PRN Reason: Hypoglycemia Stop: 05/06/18 23:03 Glucose (Gluctose) 15 gm PO ONCE PRN PRN Reason: Hypoglycemia Stop: 05/06/18 23:00 Glucose (Gluctose) 30 gm PO ONCE PRN PRN Reason: Hypoglycemia Stop: 05/06/18 23:00 Heparin Sodium (Porcine) (Heparin) 3,600 unit IVP Q6HR PRN; Protocol PRN Reason: SEE COMMENTS Stop: 05/06/18 18:19 Heparin Sodium (Porcine) (Heparin) 1,800 unit IVP Q6H PRN; Protocol PRN Reason: SEE COMMENTS Stop: 05/06/18 18:19 Heparin Sodium/Dextrose (Heparin 25,000 Unit/500 Ml D5w) 25,000 unit in 500 mls @ 14.587 mls/hr IVC .Q24H JORGE; 12 UNIT/KG/HR PRN Reason: Protocol Stop: 05/06/18 18:31 Last Titration: 11/05/17 12:08 Dose: 15 unit/kg/hr, 18.234 mls/hr Fentanyl Citrate 1,000 mcg/ (Sodium Chloride) 100 mls @ 5 mls/hr IVC CONT JORGE; 50 MCG/HR PRN Reason: Protocol Stop: 05/06/18 20:46 Last Admin: 11/05/17 08:20 Dose: 100 mcg/hr, 10 mls/hr Midazolam HCl 50 mg/ Sodium (Chloride) 100 mls @ 4 mls/hr IVC CONT JORGE; 2 MG/HR PRN Reason: Protocol Stop: 05/06/18 20:46 Last Admin: 11/05/17 04:43 Dose: 4 mg/hr, 8 mls/hr Norepinephrine Bitartrate 4 mg (/ Dextrose) 254 mls @ 30.48 mls/hr IVC CONT JORGE ; 8 MCG/MIN PRN Reason: Protocol Stop: 05/06/18 23:01 Last Admin: 11/05/17 11:27 Dose: 14 mcg/min, 53.34 mls/hr Dextrose (Dextrose 5%) 1,000 mls @ 100 mls/hr IVC .Q10H PRN PRN Reason: HYPOGLYCEMIA Stop: 05/06/18 23:00 Dopamine HCl/Dextrose (Dopamine Premix 400mg/250ml) 400 mg in 250 mls @ 34.189 mls/hr IVC .Q7H19M JORGE; 15 MCG/KG/MIN PRN Reason: Protocol Stop: 05/06/18 23:31 Last Admin: 11/05/17 12:38 Dose: Not Given Potassium Chloride (Potassium Chloride 20 Meq/100 Ml) 40 meq in 200 mls @ 100 mls/hr IVPB Q1H PRN PRN Reason: POTASSIUM 2.8 Stop: 05/07/18 10:34 Last Infusion: 11/05/17 12:38 Dose: Infused Abciximab 9 mg/ Sodium (Chloride) 254.5 mls @ 12.89 mls/hr IVC CONT JORGE PRN Reason: 0.125 MCG/KG/MIN Stop: 05/07/18 12:16 Last Admin: 11/05/17 12:30 Dose: 0.125 mcg/kg/min, 12.89 mls/hr Insulin Human Lispro (Humalog) 0 units SQ Q6HR JORGE PRN Reason: Protocol Stop: 05/07/18 00:01 Last Admin: 04/29/18 11:28 Dose: 6 units Morphine Sulfate (Morphine Sulfate) 2 mg IVP Q5MIN PRN PRN Reason: Chest Pain Last Admin: 11/04/17 18:34 Dose: 2 mg ressions Chest X-Ray 11/04/17 22:46 IMPRESSION: 1. Well-positioned NG and ET tubes. 2. Coarse lung markings suggestive of emphysema or chronic interstitial lung disease. D/ / 11/05/2017 07:01:09 Erick Allan MD / shereen Interpreting Provider: Erick Allan MD Chest X-Ray 11/05/17 09:13 IMPRESSION: 1. The IABP radiopaque tip has advanced since the prior exam and now lies approximately 0.7 cm distal to the superior margin of the aortic arch (ideal position is approximately 2 cm). 2. The enteric tube has been repositioned with the tip now extending into the fundus and a loop extending into the mid gastric body. The findings were sent to the Radiology Results Communication Center at 9:41 am on 11/05/2017to be communicated to a licensed caregiver. D/ / 11/05/2017 09:56:54 Danny Tamez MD / shereen Interpreting Provider: Danny Tamez MD Chest X-Ray 11/05/17 22:45 IMPRESSION: 1. Stable position of support tubes. 2. Findings suggesting COPD. 3. No acute cardiopulmonary process evident. D/ / 11/05/2017 08:22:58 Ernesto Titus MD / shereen Interpreting Provider: Ernesto Titus MD Laboratory Tests 11/04/17 11/05/17 11/05/17 18:18 03:30 03:30 WBC 15.8 H D Hgb 14.4 D Potassium 3.3 L Creatinine 0.85 Magnesium Troponin I 0.10 H* > 73.00 H* 11/05/17 09:54 WBC Hgb Potassium Creatinine Magnesium 1.8 Troponin I - Imaging and Cardiology Chest Xray: report reviewed Echo: pending Cardiac cath: report reviewed - EKG Interpretation EKG results cardiology: personally reviewed (ECG today with SR, HR 69. ST elevations noted in leads V1, V2), other (Telemetry reviewed with average HR previous 12 hours noted to be 75, SR. PACs PVCs noted. Short runs of non- sustained VT noted, longest 11 beats.) - VTE Reasons for not Prescribing Prophylaxis: Not indicated-Anticoagulated or INR therapeutic Consult Discharge Plan - Plan Referrals: NONE,PCP [Primary Care Provider] -
[2017-11-05] MEDS ORDERED: Abciximab 9 MG in 0.9 % Sodium Chloride 250 ML IVC SCH (12:15)
[2017-11-05] MEDS ORDERED: 0.9 % Sodium Chloride 500 ML IVC ONE ×2 (13:36→16:36)
[2017-11-05] MEDS ORDERED: 0.9 % Sodium Chloride 500 ML ONE (13:38)
[2017-11-05] MEDS: Chlorhexidine Rinse 15 ML MOUTHWASH MM SCH ×2 (14:07→20:16)
[2017-11-05] MEDS: Pantoprazole 40 MG VIAL IVP SCH (14:09)
[2017-11-05 16:04] LABS: Basophils # 0.1 K/mcL (0.0-0.2); Basophils % 0.3 %; Eosinophils # 0.1 K/mcL (0.0-0.6); Eosinophils % 0.6 %; Hematocrit 38.6 % (35.3-44.9); Hemoglobin 13.3 g/dL (11.5-15.4); Immature Granulocytes % 0.5 % (0-4); Lymphocytes # 2.3 K/mcL (0.6-4.6); Lymphocytes % 13.4 %; Mean Corpuscular HGB Conc 34.5 g/dL (31.6-35.5); Mean Corpuscular Hemoglobin 30.6 pg (28.0-33.3); Mean Corpuscular Volume 88.9 fL (83.0-100.0); Mean Platelet Volume 10.8 fL (9.4-12.4); Monocytes # 2.1 K/mcL (0.0-1.3); Neutrophils # 12.6 K/mcL (1.6-8.9); Platelet Count 360 K/mcL (140-400); Red Blood Count 4.34 M/mcL (3.82-4.97); Red Cell Distribution Width 13.7 % (11.5-14.5); Segmented Neutrophils % 73.2 %
[2017-11-05 16:35] LABS: Calcium 8.2 mg/dL (8.6-10.3); Magnesium 2.5 mg/dL (1.6-2.6); Potassium 3.5 mEq/L (3.5-5.1)
[2017-11-05] MEDS ORDERED: 0.9 % Sodium Chloride 1,000 ML ONE (16:44)
[2017-11-05] MEDS: 0.9 % Sodium Chloride 1,000 ML IVC SCH (16:58)
[2017-11-05] MEDS: Heparin 25,000 UNIT/500 ML D5W 25,000 UNIT/500 ML BAG IVC SCH (18:15)
[2017-11-06 00:12] LABS: Hematocrit 36.9 % (35.3-44.9)
[2017-11-06 00:15] LABS: Hemoglobin 12.8 g/dL (11.5-15.4)
[2017-11-06] MEDS: FentaNYL (PF) 1,000 MCG in 0.9 % Sodium Chloride 80 ML IVC SCH ×2 (02:48→14:08)
[2017-11-06] MEDS: Heparin 25,000 UNIT/500 ML D5W 25,000 UNIT/500 ML BAG IVC SCH (02:52)
[2017-11-06] MEDS: Insulin LISPRO 300 UNITS/3 ML VIAL SQ SCH ×4 (03:09→17:40)
[2017-11-06 05:42] LABS: BUN/Creatinine Ratio 17 (6-26); Blood Urea Nitrogen 14 mg/dL (8-23); Carbon Dioxide 19 mEq/L (23-29); Chloride 115 mEq/L (98-107); Glucose 146 mg/dL (70-105); Osmolality,Calculated 291 (280-300); Potassium 3.5 mEq/L (3.5-5.1); Sodium 139 mEq/L (136-145); eGFR For African Americans > 60 (> 60); eGFR For Non-African Americans > 60 (> 60)
[2017-11-06] MEDS: 0.9 % Sodium Chloride 1,000 ML IVC SCH (06:22)
[2017-11-06] MEDS: Potassium Chloride 40 MEQ/200 ML BAG IVPB PRN (06:28)
[2017-11-06] MEDS ORDERED: *HR* Ticagrelor 90 MG TABLET PO ONE (08:05)
[2017-11-06] MEDS: Chlorhexidine Rinse 15 ML MOUTHWASH MM SCH ×2 (08:22→20:32)
[2017-11-06] MEDS: Pantoprazole 40 MG VIAL IVP SCH (08:23)
[2017-11-06] MEDS: Aspirin 81 MG TAB.CHEW PO SCH (08:23)
--- NOTE | 2017-11-06 08:30 | Cardiothoracic Progress Note ---
Date of Encounter: 11/06/17 Time of Encounter: 08:27 - Assessment and plan (1) Elevated troponin Current Visit: No Status: Acute The assessment and plan as outlined above was discussed with the patient and/or family members who expressed understanding and agreement. All questions were answered. The patient has had a large anterior KS. The LAD was opened with PTCA and stent with a good result. She has received Plavix and ReoPro. She is not a candidate for open heart surgery. I will sign off. Please call if needed. - Subjective Interval history: The patient is intubated and sedated. She does have a history of dementia, but it is difficult to assess as she is sedated. She is on a low-dose of norepinephrine and the intra-aortic balloon pump for support. Vital Signs, Last 4 Hours Temp Pulse Resp BP Pulse Ox 11/06/17 08:00 63 14 87/40 99 11/06/17 07:42 14 99/43 99 11/06/17 07:29 100.4 F H 11/06/17 07:00 64 14 88/42 100 11/06/17 06:00 68 14 86/41 98 11/06/17 05:30 14 90/45 98 11/06/17 05:00 70 14 85/45 97 Oxgyen Flow Rate Oxygen Flow Rate (LPM) 2 Lungs are clear to percussion and auscultation. Heart is in a normal sinus rhythm. - Labs 11/05/17 23:57 11/06/17 05:00 Lab Results, Last 24 hours 11/05/17 11/05/17 11/05/17 09:54 11:25 16:00 WBC 17.2 H Hgb 13.3 Hct 38.6 Plt Count 360 APTT 37.6 H Sodium 141 Potassium 2.8 L Chloride 111 H Carbon Dioxide 21 L BUN 13 Creatinine 0.94 Glucose 211 H Calcium 8.4 L Magnesium 1.8 11/05/17 11/05/17 11/05/17 16:00 17:53 23:57 WBC Hgb 12.8 Hct 36.9 Plt Count APTT 71.3 H D Sodium 139 Potassium 3.5 Chloride 112 H Carbon Dioxide 20 L BUN 14 Creatinine 1.19 Glucose 194 H Calcium 8.2 L Magnesium 2.5 11/05/17 11/05/17 11/06/17 23:57 23:57 05:00 WBC Hgb Hct Plt Count APTT 81.3 H Sodium 139 Potassium 3.9 3.5 Chloride 115 H Carbon Dioxide 19 L BUN 14 Creatinine 0.83 Glucose 146 H Calcium 8.0 L Magnesium - VTE Reasons for not Prescribing Prophylaxis: Not indicated-Anticoagulated or INR therapeutic Consult Discharge Plan - Plan Referrals: NONE,PCP [Primary Care Provider] -
[2017-11-06] MEDS: Norepinephrine 4 MG in D5% in Water 250 ML IVC SCH (08:50)
--- NOTE | 2017-11-06 09:03 | Pulmonology Progress Note ---
Date of Encounter: 11/06/17 Time of Encounter: 08:00 Assessment and Plan (1) Acute respiratory failure Current Visit: Yes Status: Acute Patient Acute hypoxic respiratory failure secondary to hydrostatic pulmonary edema secondary to cardiogenic shock due to underlying STEMI . Will try to liberate from vent when she is off on IABP and also levophed support . Qualifiers: Respiratory failure complication: hypoxia Qualified Code(s): J96.01 - Acute respiratory failure with hypoxia (2) STEMI (ST elevation myocardial infarction) Current Visit: Yes Status: Acute Patient has instent thrombosis after PCI developed dissection developed a large anterior wall [place] with cardiogenic shock Managment according to cardiology Qualifiers: Involved coronary artery: LAD coronary artery Qualified Code(s): I21.02 - ST elevation (STEMI) myocardial infarction involving left anterior descending coronary artery (3) Cardiogenic shock Current Visit: Yes Status: Acute Patient is in cardiogenic shock with IABP 1: 1 Support now with Levophed support plan is to liberate both supports to follow cardiology recs (4) DVT prophylaxis Current Visit: No Status: Acute To continue IV heparin Subjective Principal diagnosis: STEMI Interval history: Patient is intubated and sedated as patient has IABP support for her cardiogenic shock .No acute events overnight Objective PUL Vital signs: Last Vital Signs Temp 100.4 F H 11/06/17 07:29 Pulse 63 11/06/17 08:00 Resp 14 11/06/17 08:00 BP 87/40 11/06/17 08:00 Pulse Ox 99 11/06/17 08:00 General appearance: other (sedated ) Auscultation: bilateral: diminished breath sounds unable to assess due to mental status (sedated due to IABP support ) Ventilator Settings Ventilator Settings: Ventilator Settings, Last 8 Hours Ventilator Mode VC+ Ventilator Mode VC+ Ventilator Mode VC+ Ventilator Mode VC+ Ventilator Mode VC+ Ventilator Mode VC+ Ventilator Mode VC+ Ventilator Mode VC+ Ventilator Mode VC+ Ventilator Mode VC+ Ventilator Mode VC+ Ventilator Tidal Volume 450 Setting Ventilator Tidal Volume 450 Setting Ventilator Tidal Volume 450 Setting Ventilator Tidal Volume 450 Setting Ventilator Tidal Volume 450 Setting Ventilator Tidal Volume 450 Setting Ventilator Tidal Volume 450 Setting Ventilator Tidal Volume 450 Setting Ventilator Tidal Volume 450 Setting Ventilator Tidal Volume 450 Setting Ventilator Tidal Volume 450 Setting Ventilator Respiratory Rate 14 Setting Ventilator Respiratory Rate 14 Setting Ventilator Respiratory Rate 14 Setting Ventilator Respiratory Rate 14 Setting Ventilator Respiratory Rate 14 Setting Ventilator Respiratory Rate 14 Setting Ventilator Respiratory Rate 14 Setting Ventilator Respiratory Rate 14 Setting Ventilator Respiratory Rate 14 Setting Ventilator Respiratory Rate 14 Setting Ventilator Respiratory Rate 14 Setting Actual Respiratory Rate 14 Actual Respiratory Rate 14 Actual Respiratory Rate 14 Actual Respiratory Rate 14 Actual Respiratory Rate 14 Actual Respiratory Rate 14 Actual Respiratory Rate 14 Actual Respiratory Rate 14 Actual Respiratory Rate 15 Actual Respiratory Rate 15 Actual Respiratory Rate 15 Positive End Expiratory 5 Pressure Positive End Expiratory 5 Pressure Positive End Expiratory 5 Pressure Positive End Expiratory 5 Pressure Positive End Expiratory 5 Pressure Positive End Expiratory 5 Pressure Positive End Expiratory 5 Pressure Positive End Expiratory 5 Pressure Positive End Expiratory 5 Pressure Positive End Expiratory 5 Pressure Positive End Expiratory 5 Pressure Peak Inspiratory Airway 21 Pressure Peak Inspiratory Airway 24 Pressure Peak Inspiratory Airway 19 Pressure Peak Inspiratory Airway 18 Pressure Peak Inspiratory Airway 18 Pressure Peak Inspiratory Airway 18 Pressure Peak Inspiratory Airway 29 Pressure Peak Inspiratory Airway 29 Pressure Peak Inspiratory Airway 18 Pressure Peak Inspiratory Airway 18 Pressure Peak Inspiratory Airway 21 Pressure Results - Laboratory Findings CBC and BMP: 11/06/17 08:50 11/06/17 12:50 ABG ABG pH 7.43 pH Units (7.32-7.45) 11/05/17 10:02 ABG pCO2 30 mmHg (35-45) L 11/05/17 10:02 ABG pO2 80 mmHg (85-104) L 11/05/17 10:02 ABG O2 Saturation 96 % (95-98) 11/05/17 10:02 PT/INR, D-dimer PT 11.2 Seconds (9.4-12.1) 11/04/17 18:18 Abnormal lab findings: Abnormal lab results WBC 17.2 K/mcL (4.3-11.1) H 11/05/17 16:00 Neutrophils # 12.6 K/mcL (1.6-8.9) H 11/05/17 16:00 Monocytes # 2.1 K/mcL (0.0-1.3) H 11/05/17 16:00 APTT 81.3 Seconds (26.0-36.0) H 11/05/17 23:57 Heparin Anti-Xa, Unfract 1.92 IU/mL (0.30-0.70) H* 11/04/17 22:40 ABG pCO2 30 mmHg (35-45) L 11/05/17 10:02 ABG pO2 80 mmHg (85-104) L 11/05/17 10:02 ABG HCO3 20 mEq/L (21-27) L 11/05/17 10:02 ABG Base Excess -3 mEq/L (-2 to 3) L 11/05/17 10:02 Chloride 115 mEq/L (98-107) H 11/06/17 05:00 Carbon Dioxide 19 mEq/L (23-29) L 11/06/17 05:00 Glucose 146 mg/dL (70-105) H 11/06/17 05:00 POC Glucose 131 mg/dL (70-99) H 11/05/17 23:55 Hemoglobin A1c 6.3 % (-5.6) H 11/05/17 03:30 Calcium 8.0 mg/dL (8.6-10.3) L 11/06/17 05:00 Troponin I > 73.00 ng/mL (< 0.04) H* 11/05/17 03:30 - Clinical Findings Intake & Output: Intake & Output 11/05/17 11/06/17 11/06/17 23:59 07:59 15:59 Intake Total 1126 / 1126 1471 / 1471 200 / 200 Output Total 107 / 107 150 / 150 Balance 1019 / 1019 1321 / 1321 200 / 200 - VTE Reasons for not Prescribing Prophylaxis: Not indicated-Anticoagulated or INR therapeutic Consult Discharge Plan - Plan Referrals: NONE,PCP [Primary Care Provider] -
[2017-11-06] MEDS: Ringers Solution, Lactated 1,000 ML IVC SCH ×2 (09:36→22:58)
[2017-11-06 09:43] LABS: Basophils # 0.1 K/mcL (0.0-0.2); Basophils % 0.3 %; Eosinophils # 0.2 K/mcL (0.0-0.6); Eosinophils % 1.6 %; Hematocrit 33.8 % (35.3-44.9); Immature Granulocytes % 0.5 % (0-4); Lymphocytes # 1.4 K/mcL (0.6-4.6); Mean Corpuscular HGB Conc 33.7 g/dL (31.6-35.5); Mean Corpuscular Hemoglobin 30.6 pg (28.0-33.3); Mean Platelet Volume 10.3 fL (9.4-12.4); Monocytes # 1.4 K/mcL (0.0-1.3); Monocytes % 9.5 %; Neutrophils # 11.9 K/mcL (1.6-8.9); Platelet Count 231 K/mcL (140-400); Red Blood Count 3.72 M/mcL (3.82-4.97); Red Cell Distribution Width 13.8 % (11.5-14.5); Segmented Neutrophils % 79.1 %
[2017-11-06 09:52] LABS: Hemoglobin 11.4 g/dL (11.5-15.4); Mean Corpuscular Volume 90.9 fL (83.0-100.0)
--- NOTE | 2017-11-06 10:15 | Cardiology Progress Note ---
Date of Encounter: 11/06/17 Time of Encounter: 09:00 Assessment and Plan (1) STEMI (ST elevation myocardial infarction) Current Visit: Yes Status: Acute Per cardiology: -Patient with anterior STEMI. Was taken emergently to [facility] Monday. Underwent PCI to LAD with ELIO. -Per discussion with Dr.Jennifer Morgan, patient had ECG changes after first procedure and then underwent another angiogram with clot burden noted in LAD. -Patient was given IC reopro and started on reopro drip. IABP was placed. -Patient currently intubated in ICU, sedated. IABP 1:[address] On vasopressors for BP support. -BPs very labile and very sensitive to vasopressor titration. -Currently on heparin drip, reopro drip, levophed, versed drip, fentanyl drip. -On asa, plavix. Not on beta william due to hypotension. -TTE with LVEF 55%, mild concentric LVH, mild DD, mild segmental LV systolic function, but overall normal LV function, mildly increased gradients across AV suggestive of mild obstruction. -Discussed and reviewed with , will decrease IABP to 1:2. -Will give 180 brilinta now, started brilinta 90mg BID. -Will stop reopro drip 1 hour after brilinta. -Attempt to wean vasopressor to off as able. -Patient is critically ill. -Appreciate pulmonary recommendations and assistance. -Will continue to monitor. Qualifiers: Involved coronary artery: LAD coronary artery Qualified Code(s): I21.02 - ST elevation (STEMI) myocardial infarction involving left anterior descending coronary artery Discussion w patient/family: The assessment and plan as outlined above was discussed with the patient who expressed understanding and agreement. All questions were answered. Thank you for involving us in the care of your patient. Please call with any questions. Discussed and reviewed with Subjective Principal diagnosis: STEMI Interval history: Patient intubated and sedated. IABP in place. On vasopressors. Objective Vital Signs, Last 4 Hours Temp Pulse Resp BP Pulse Ox 11/06/17 10:00 64 14 97/42 98 11/06/17 09:45 14 114/40 99 11/06/17 09:00 60 14 91/41 99 11/06/17 08:00 63 14 87/40 99 11/06/17 07:42 14 99/43 99 04/30/18 07:29 100.4 F H 11/06/17 07:00 64 14 88/42 100 General: Other (Intubated and sedated) HEENT: Atraumatic, Normocephaly, Mucus Membranes Moist Neck: No JVD, Normal carotid pulses Cardiac: Reg Rate and Rhythm, Normal S1 and S2, No Murmur Lungs: Other (Lung sounds diminished throughout) Neuro: Other (Sedated) Abdomen: Soft Skin: No rashes noted on visualized skin Musculoskeletal: No Chest Wall Tenderness (No grimacing noted to chest wall palpation. ), Other (BIlateral groin sheaths intact. ) Extremities: No Clubbing, No Cyanosis, No Edema, Other (Bilateral DP per doppler. ) Results 11/06/17 08:50 11/06/17 05:00 Lab Results 11/05/17 11/05/17 11/05/17 09:54 11:25 16:00 WBC 17.2 H Hgb 13.3 Hct 38.6 Plt Count 360 APTT 37.6 H Sodium 141 Potassium 2.8 L Chloride 111 H Carbon Dioxide 21 L BUN 13 Creatinine 0.94 Glucose 211 H Calcium 8.4 L Magnesium 1.8 Impressions Chest X-Ray 11/05/17 09:13 IMPRESSION: 1. The IABP radiopaque tip has advanced since the prior exam and now lies approximately 0.7 cm distal to the superior margin of the aortic arch (ideal position is approximately 2 cm). 2. The enteric tube has been repositioned with the tip now extending into the fundus and a loop extending into the mid gastric body. The findings were sent to the Radiology Results Communication Center at 9:41 am on 11/05/2017to be communicated to a licensed caregiver. D/ / 11/05/2017 09:56:54 Danny Tamez MD / shereen Interpreting Provider: Danny Tamez MD Chest X-Ray 11/05/17 16:07 IMPRESSION: 1. IABP tip overlies the upper portion of the aortic knob. If this is pulled back 17 mm, it would then be about 20 mm from the top of the aortic arch. 2. Endotracheal tube and NG tube positioning are unremarkable. 3. Cardiomegaly. 4. Calcific atherosclerotic disease aorta. 5. Senescent pulmonary changes. D/ / Nuno Knox / Nuno Knox Interpreting Provider: Nuno Knox Echocardiogram 11/05/17 22:40 Impressions: LVEF 55%. Mild concentric left ventricular hypertrophy. Mild left ventricular diastolic dysfunction. Mild segmental left ventricular systolic dysfunction, but overall normal LV function. Normal right ventricular structure and function. No evidence of pulmonary hypertension. Mildly increased gradients across the aortic valve suggestive of a mild obstruction. Left Ventricular Wall Motion: Rest Echo Findings The apical septal, mid inferior septal and mid anterior septal morales were hypokinetic. All other wall segments showed normal motion. Findings: Study Quality * Technically adequate exam. ECG Findings * Normal sinus rhythm. Left Ventricle * LVEF 55%. * Normal LV chamber size. * Mild concentric left ventricular hypertrophy. * Mild left ventricular diastolic dysfunction. * Mild segmental left ventricular systolic dysfunction with overall normal LV function. Right Ventricle * Normal right ventricular structure and function. Left Atrium * Moderately dilated left atrium. Right Atrium * Normal right atrial size. Aortic Valve * Aortic valve not well visualized. * No aortic regurgitation. * Mildly increased gradients acrossly the aortic valve suggestive of a mild obstruction. Mitral Valve * Mild mitral annular calcification. * No mitral regurgitation. * No mitral stenosis. Tricuspid Valve * Normal tricuspid valve structure and function. * Trace tricuspid regurgitation. * No evidence of pulmonary hypertension. Pulmonic Valve * Pulmonic valve is not well visualized. * No pulmonic regurgitation. Aorta * Normally sized aortic root. Pericardium * The pericardium appears normal. IVC * Normal IVC dimensions and inspiratory collapse. Pulmonary Artery * Normal visualized portions of the main pulmonary artery. Active Medications Aspirin (Aspirin) 81 mg PO DAILY JORGE Stop: 05/07/18 09:01 Last Admin: 11/06/17 08:23 Dose: 81 mg Atorvastatin Calcium (Lipitor) 80 mg PO HS JORGE Stop: 05/07/18 21:01 Last Admin: 11/05/17 20:16 Dose: 80 mg Chlorhexidine Gluconate (Chlorhexidine Rinse) 15 ml MM BID JORGE Stop: 05/07/18 14:01 Last Admin: 11/06/17 08:22 Dose: 15 ml Dextrose/Water (Dextrose 50% (Syg)) 25 ml IVP AD PRN PRN Reason: Hypoglycemia Stop: 05/06/18 23:03 Glucagon (Glucagen) 1 mg IM ONCE PRN PRN Reason: Hypoglycemia Stop: 05/06/18 23:03 Glucose (Gluctose) 15 gm PO ONCE PRN PRN Reason: Hypoglycemia Stop: 05/06/18 23:00 Glucose (Gluctose) 30 gm PO ONCE PRN PRN Reason: Hypoglycemia Stop: 05/06/18 23:00 Heparin Sodium (Porcine) (Heparin) 3,600 unit IVP Q6HR PRN; Protocol PRN Reason: SEE COMMENTS Stop: 05/06/18 18:19 Heparin Sodium (Porcine) (Heparin) 1,800 unit IVP Q6H PRN; Protocol PRN Reason: SEE COMMENTS Stop: 05/06/18 18:19 Heparin Sodium/Dextrose (Heparin 25,000 Unit/500 Ml D5w) 25,000 unit in 500 mls @ 14.587 mls/hr IVC .Q24H JORGE; 12 UNIT/KG/HR PRN Reason: Protocol Stop: 05/06/18 18:31 Last Admin: 11/06/17 02:52 Dose: 14.99 unit/kg/hr, 18.222 mls/hr Fentanyl Citrate 1,000 mcg/ (Sodium Chloride) 100 mls @ 5 mls/hr IVC CONT JORGE; 50 MCG/HR PRN Reason: Protocol Stop: 05/06/18 20:46 Last Titration: 11/06/17 09:39 Dose: 75 mcg/hr, 7.5 mls/hr Midazolam HCl 50 mg/ Sodium (Chloride) 100 mls @ 4 mls/hr IVC CONT JORGE; 2 MG/HR PRN Reason: Protocol Stop: 05/06/18 20:46 Last Titration: 11/06/17 09:40 Dose: 2 mg/hr, 4 mls/hr Norepinephrine Bitartrate 4 mg (/ Dextrose) 254 mls @ 30.48 mls/hr IVC CONT JORGE ; 8 MCG/MIN PRN Reason: Protocol Stop: 05/06/18 23:01 Last Titration: 11/06/17 09:41 Dose: 3 mcg/min, 11.43 mls/hr Dextrose (Dextrose 5%) 1,000 mls @ 100 mls/hr IVC .Q10H PRN PRN Reason: HYPOGLYCEMIA Stop: 05/06/18 23:00 Potassium Chloride (Potassium Chloride 20 Meq/100 Ml) 40 meq in 200 mls @ 100 mls/hr IVPB Q1H PRN PRN Reason: POTASSIUM 2.8 Stop: 05/07/18 10:34 Last Infusion: 11/06/17 08:52 Dose: Infused Abciximab 9 mg/ Sodium (Chloride) 254.5 mls @ 12.89 mls/hr IVC CONT JORGE PRN Reason: 0.125 MCG/KG/MIN Stop: 05/07/18 12:16 Last Infusion: 11/06/17 09:53 Dose: Infused Magnesium Sulfate (Magnesium Sulfate Premix 2gm/50ml) 2 gm in 50 mls @ 50 mls/ hr IVPB Q5H PRN PRN Reason: Magnesium less than 2.4 Stop: 05/07/18 13:01 Potassium Chloride (Potassium Chloride 20 Meq/100 Ml) 40 meq in 200 mls @ 100 mls/hr IVPB Q1H PRN PRN Reason: ELECTROLYTE PROTOCOL Stop: 05/07/18 12:59 Lactated Ringer's (Lactated Ringers) 1,000 mls @ 75 mls/hr IVC .[id number] [facility] Stop: 05/08/18 09:01 Last Admin: 11/06/17 09:36 Dose: 75 mls/hr Insulin Human Lispro (Humalog) 0 units SQ Q6HR JORGE PRN Reason: Protocol Stop: 05/07/18 00:01 Last Admin: 11/06/17 05:40 Dose: Not Given Morphine Sulfate (Morphine Sulfate) 2 mg IVP Q5MIN PRN PRN Reason: Chest Pain Last Admin: 11/04/17 18:34 Dose: 2 mg Pantoprazole Sodium (Protonix) 40 mg IVP DAILY [facility] Stop: 05/07/18 14:01 Last Admin: 11/06/17 08:23 Dose: 40 mg Ticagrelor (Brilinta) 90 mg PO BID [facility] Stop: 05/08/18 21:01 Laboratory Tests 11/05/17 11/06/17 11/06/17 03:30 05:00 08:50 WBC 15.0 H Hgb 14.4 D 11.4 L Potassium 3.5 Creatinine 0.83 - Imaging and Cardiology Chest Xray: report reviewed Echo: report reviewed Cardiac cath: report reviewed - EKG Interpretation EKG results cardiology: other (Telemetry reviewed with average HR previous 12 hours noted to be 67, SR. PVCs and PACs noted. One run of atrial tachcyardia noted, 13 beats.) - VTE Reasons for not Prescribing Prophylaxis: Not indicated-Anticoagulated or INR therapeutic Consult Discharge Plan - Plan Referrals: NONE,PCP [Primary Care Provider] -
[2017-11-06 13:04] LABS: Magnesium 2.1 mg/dL (1.6-2.6)
--- NOTE | 2017-11-06 16:34 | Electrocardiograph Report ---
[address] [place], [place] [address] Test Date: 2017-11-06 Pat Name: Latonya Jose Department: 109 Room: [facility] Gender: F Commissions Specialist: BRIAN : 1935 Requested By: Delphine Kilpatrick Order Number: [id number] Reading MD: Farida White Measurements Intervals [place] Rate: 61 P: -48 ID: 238 QRS: -83 QRSD: 144 T: 110 QT: 509 QTc: 512 Interpretive Statements SINUS RHYTHM WITH SINUS ARRHYTHMIA WITH FIRST DEGREE AV BLOCK RIGHT BUNDLE BRANCH BLOCK LEFT ANTERIOR FASCICULAR BLOCK ST ELEVATION, CONSIDER SEPTAL INJURY ACUTE [place] Electronically Signed On 11-06-2017 16:32:48 EDT by Farida White
--- NOTE | 2017-11-06 16:40 | Electrocardiograph Report ---
[address] [place], [place] [address] Test Date: 2017-11-05 Pat Name: Latonya Jose Department: 109 Room: 04 Gender: F Polygraph Technician: JER[place] : 1935 Requested By: Delphine Kilpatrick Order Number: [id number] Reading MD: Farida White Measurements Intervals [place] Rate: 62 P: -30 NV: 208 QRS: -34 QRSD: 141 T: 151 QT: 432 QTc: 437 Interpretive Statements SINUS RHYTHM RIGHT BUNDLE BRANCH BLOCK LEFT VENTRICULAR HYPERTROPHY AND ST-T CHANGE INFERIOR MYOCARDIAL INFARCTION, OF INDETERMINATE AGE ST ELEVATION, CONSIDER SEPTAL INJURY ACUTE [place] Electronically Signed On 11-06-2017 16:38:38 EDT by Farida White
--- NOTE | 2017-11-06 16:47 | Electrocardiograph Report ---
[address] [place] [address] Test Date: 2017-11-04 Pat Name: Latonya Jose Department: 103 Room: 04 Gender: F Supervisor Coffee: OTIS : 1935 Requested By: Cam Lee Order Number: [id number] Reading MD: Farida White Measurements Intervals [place] Rate: 86 P: -4 NE: 232 QRS: -86 QRSD: 124 T: 51 QT: 403 QTc: 446 Interpretive Statements SINUS RHYTHM WITH FIRST DEGREE AV BLOCK RIGHT BUNDLE BRANCH BLOCK [120+ ms QRS DURATION, UPRIGHT V1, 40+ ms S IN I/aVL/V4/V5/V6] LEFT ANTERIOR FASCICULAR BLOCK [QRS AXIS <= -45, QR IN I, RS IN II] Electronically Signed On 11-06-2017 16:45:22 EDT by Farida White
--- NOTE | 2017-11-06 16:49 | Event Note ---
Date of Encounter: 11/06/17 Time of Encounter: 16:47 Called regarding IABP. Per CXR, proximal portion of IABP migrated down about 2.5 cm. Augmentation briefly reduced, but now augmenting well - 100s to 110s. Urine output consistent with previous. Pump very briefly suspended and advanced 1 cm. Repeat CXR pending. New tegaderm applied.
--- NOTE | 2017-11-06 16:54 | Electrocardiograph Report ---
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
[2017-11-06] MEDS: *HR* Ticagrelor 90 MG TABLET PO SCH (20:33)
[2017-11-07] MEDS: Insulin LISPRO 300 UNITS/3 ML VIAL SQ SCH ×5 (00:14→23:55)
[2017-11-07 04:03] LABS: Basophils % 0.3 %; Eosinophils # 0.2 K/mcL (0.0-0.6); Eosinophils % 1.3 %; Hematocrit 32.6 % (35.3-44.9); Hemoglobin 10.7 g/dL (11.5-15.4); Immature Granulocytes % 0.9 % (0-4); Lymphocytes # 0.9 K/mcL (0.6-4.6); Mean Corpuscular HGB Conc 32.8 g/dL (31.6-35.5); Mean Corpuscular Hemoglobin 30.5 pg (28.0-33.3); Mean Corpuscular Volume 92.9 fL (83.0-100.0); Mean Platelet Volume 10.7 fL (9.4-12.4); Monocytes # 1.2 K/mcL (0.0-1.3); Monocytes % 8.4 %; Neutrophils # 12.3 K/mcL (1.6-8.9); Platelet Count 201 K/mcL (140-400); Red Blood Count 3.51 M/mcL (3.82-4.97); Red Cell Distribution Width 14.2 % (11.5-14.5); Segmented Neutrophils % 83.1 %
[2017-11-07] MEDS: FentaNYL (PF) 1,000 MCG in 0.9 % Sodium Chloride 80 ML IVC SCH (04:07)
--- NOTE | 2017-11-07 04:09 | Pulmonology Progress Note ---
Addendum entered and electronically signed by Zachariah Lezama DO 11/07/17 04: 21: Addendum for Physical Exam Gen.: Vitals noted. Sedated on ventilator HEENT: Normocephalic, atraumatic Neck: Supple. No adenopathy. Cardiac: RRR, no murmur, +S1/S2 Pulmonary: Significant rhonchi and deep wheezes on right, high pitched wheezes with increased airflow on left Abdomen: soft, nontender, BS noted, no guarding Back: Nontender throughout. MSK: ROM intact, no joint swelling noted Extremities: no BLE edema, nontender calf, no cyanosis or clubbing Neuro: Sedated on ventilator Original Note: <Zachariah Lezama - Last Filed: 11/07/17 04:04> Date of Encounter: 11/07/17 Time of Encounter: 04:04 Assessment and Plan (1) Acute respiratory failure Current Visit: Yes Status: Acute Patient Acute hypoxic respiratory failure secondary to hydrostatic pulmonary edema secondary to cardiogenic shock due to underlying STEMI Goal to liberate from vent today, however patient does have increased sputum production and has required increased levophed There is some concern for early development of VAP I will order sputum culture and procalcitonin Add duonebs for wheezing and rhonchi Qualifiers: Respiratory failure complication: hypoxia Qualified Code(s): J96.01 - Acute respiratory failure with hypoxia (2) STEMI (ST elevation myocardial infarction) Current Visit: Yes Status: Acute Patient has instant thrombosis after PCI developed dissection developed a large anterior wall CO with cardiogenic shock Managment according to cardiology Continued management per cardiology Qualifiers: Involved coronary artery: LAD coronary artery Qualified Code(s): I21.02 - ST elevation (STEMI) myocardial infarction involving left anterior descending coronary artery (3) Cardiogenic shock Current Visit: Yes Status: Acute Patient is in cardiogenic shock with IABP 1: 1 Support now with Levophed support plan is to liberate both supports to follow cardiology recs Currently requires minimal levophed for pressure support (4) DVT prophylaxis Current Visit: No Status: Acute Patient is on heparin drip Subjective Principal diagnosis: STEMI Objective PUL Vital signs: Last Vital Signs Temp 100.3 F H 11/07/17 03:00 Pulse 59 11/07/17 04:00 Resp 14 11/07/17 04:00 BP 71/32 11/07/17 04:00 Pulse Ox 95 11/07/17 04:00 Ventilator Settings Ventilator Settings: Ventilator Settings, Last 8 Hours Ventilator Mode VC+ Ventilator Mode VC+ Ventilator Mode VC+ Ventilator Mode VC+ Ventilator Mode VC+ Ventilator Mode VC+ Ventilator Tidal Volume 450 Setting Ventilator Tidal Volume 450 Setting Ventilator Tidal Volume 450 Setting Ventilator Tidal Volume 450 Setting Ventilator Tidal Volume 450 Setting Ventilator Tidal Volume 450 Setting Ventilator Tidal Volume 450 Setting Ventilator Tidal Volume 450 Setting Ventilator Tidal Volume 450 Setting Ventilator Tidal Volume 450 Setting Ventilator Tidal Volume 450 Setting Ventilator Tidal Volume 450 Setting Ventilator Respiratory Rate 14 Setting Ventilator Respiratory Rate 14 Setting Ventilator Respiratory Rate 14 Setting Ventilator Respiratory Rate 14 Setting Ventilator Respiratory Rate 14 Setting Ventilator Respiratory Rate 14 Setting Ventilator Respiratory Rate 14 Setting Ventilator Respiratory Rate 14 Setting Ventilator Respiratory Rate 14 Setting Ventilator Respiratory Rate 14 Setting Ventilator Respiratory Rate 14 Setting Ventilator Respiratory Rate 14 Setting Actual Respiratory Rate 14 Actual Respiratory Rate 14 Actual Respiratory Rate 14 Actual Respiratory Rate 14 Actual Respiratory Rate 14 Actual Respiratory Rate 14 Actual Respiratory Rate 14 Actual Respiratory Rate 14 Actual Respiratory Rate 14 Actual Respiratory Rate 14 Actual Respiratory Rate 14 Actual Respiratory Rate 14 Positive End Expiratory 5 Pressure Positive End Expiratory 5 Pressure Positive End Expiratory 5 Pressure Positive End Expiratory 5 Pressure Positive End Expiratory 5 Pressure Positive End Expiratory 5 Pressure Positive End Expiratory 5 Pressure Positive End Expiratory 5 Pressure Positive End Expiratory 5 Pressure Positive End Expiratory 5 Pressure Positive End Expiratory 5 Pressure Positive End Expiratory 5 Pressure Peak Inspiratory Airway 24 Pressure Peak Inspiratory Airway 24 Pressure Peak Inspiratory Airway 24 Pressure Peak Inspiratory Airway 24 Pressure Peak Inspiratory Airway 24 Pressure Peak Inspiratory Airway 24 Pressure Peak Inspiratory Airway 24 Pressure Peak Inspiratory Airway 23 Pressure Peak Inspiratory Airway 23 Pressure Peak Inspiratory Airway 25 Pressure Peak Inspiratory Airway 24 Pressure Peak Inspiratory Airway 22 Pressure Results - Laboratory Findings CBC and BMP: 11/06/17 08:50 11/06/17 12:50 ABG ABG pH 7.43 pH Units (7.32-7.45) 11/05/17 10:02 ABG pCO2 30 mmHg (35-45) L 11/05/17 10:02 ABG pO2 80 mmHg (85-104) L 11/05/17 10:02 ABG O2 Saturation 96 % (95-98) 11/05/17 10:02 PT/INR, D-dimer PT 11.2 Seconds (9.4-12.1) 11/04/17 18:18 Abnormal lab findings: Abnormal lab results WBC 15.0 K/mcL (4.3-11.1) H 11/06/17 08:50 RBC 3.72 M/mcL (3.82-4.97) L 11/06/17 08:50 Hgb 11.4 g/dL (11.5-15.4) L 11/06/17 08:50 Hct 33.8 % (35.3-44.9) L 11/06/17 08:50 Neutrophils # 11.9 K/mcL (1.6-8.9) H 11/06/17 08:50 Monocytes # 1.4 K/mcL (0.0-1.3) H 11/06/17 08:50 APTT 81.3 Seconds (26.0-36.0) H 11/05/17 23:57 Heparin Anti-Xa, Unfract 1.92 IU/mL (0.30-0.70) H* 11/04/17 22:40 ABG pCO2 30 mmHg (35-45) L 11/05/17 10:02 ABG pO2 80 mmHg (85-104) L 11/05/17 10:02 ABG HCO3 20 mEq/L (21-27) L 11/05/17 10:02 ABG Base Excess -3 mEq/L (-2 to 3) L 11/05/17 10:02 Chloride 115 mEq/L (98-107) H 11/06/17 05:00 Carbon Dioxide 19 mEq/L (23-29) L 11/06/17 05:00 Glucose 146 mg/dL (70-105) H 11/06/17 05:00 POC Glucose 131 mg/dL (70-99) H 11/05/17 23:55 Hemoglobin A1c 6.3 % (-5.6) H 11/05/17 03:30 Calcium 8.0 mg/dL (8.6-10.3) L 11/06/17 05:00 Troponin I > 73.00 ng/mL (< 0.04) H* 11/05/17 03:30 - Clinical Findings Intake & Output: Intake & Output 11/06/17 11/06/17 11/07/17 15:59 23:59 07:59 Intake Total 847.5 / 847.5 1000 / 1000 64 / 64 Output Total 185 / 185 115 / 115 45 / 45 Balance 662.5 / 662.5 885 / 885 - VTE Reasons for not Prescribing Prophylaxis: Not indicated-Anticoagulated or INR therapeutic Consult Discharge Plan - Plan Referrals: NONE,PCP [Primary Care Provider] - <Kimberly Sherwood - Last Filed: 11/07/17 23:33> Date of Encounter: 11/07/17 Assessment and Plan (1) Acute respiratory failure Current Visit: Yes Status: Acute Qualifiers: Respiratory failure complication: hypoxia Qualified Code(s): J96.01 - Acute respiratory failure with hypoxia (2) STEMI (ST elevation myocardial infarction) Current Visit: Yes Status: Acute Qualifiers: Involved coronary artery: LAD coronary artery Qualified Code(s): I21.02 - ST elevation (STEMI) myocardial infarction involving left anterior descending coronary artery (3) Cardiogenic shock Current Visit: Yes Status: Acute (4) DVT prophylaxis Current Visit: No Status: Acute Objective PUL Vital signs: Last Vital Signs Temp 98.3 F 11/07/17 12:03 Pulse 76 11/07/17 23:00 Resp 14 11/07/17 23:00 BP 114/51 11/07/17 23:00 Pulse Ox 99 11/07/17 23:00 Ventilator Settings Ventilator Settings: Ventilator Settings, Last 8 Hours Ventilator Mode VC+ Ventilator Mode VC+ Ventilator Mode VC+ Ventilator Mode VC+ Ventilator Mode VC+ Ventilator Tidal Volume 450 Setting Ventilator Tidal Volume 450 Setting Ventilator Tidal Volume 450 Setting Ventilator Tidal Volume 450 Setting Ventilator Tidal Volume 450 Setting Ventilator Tidal Volume 450 Setting Ventilator Tidal Volume 450 Setting Ventilator Tidal Volume 450 Setting Ventilator Tidal Volume 450 Setting Ventilator Tidal Volume 450 Setting Ventilator Tidal Volume 450 Setting Ventilator Tidal Volume 450 Setting Ventilator Tidal Volume 450 Setting Ventilator Respiratory Rate 14 Setting Ventilator Respiratory Rate 14 Setting Ventilator Respiratory Rate 14 Setting Ventilator Respiratory Rate 14 Setting Ventilator Respiratory Rate 14 Setting Ventilator Respiratory Rate 14 Setting Ventilator Respiratory Rate 14 Setting Ventilator Respiratory Rate 14 Setting Ventilator Respiratory Rate 14 Setting Ventilator Respiratory Rate 14 Setting Ventilator Respiratory Rate 14 Setting Ventilator Respiratory Rate 14 Setting Ventilator Respiratory Rate 14 Setting Actual Respiratory Rate 14 Actual Respiratory Rate 14 Actual Respiratory Rate 14 Actual Respiratory Rate 14 Actual Respiratory Rate 14 Actual Respiratory Rate 18 Actual Respiratory Rate 14 Actual Respiratory Rate 14 Actual Respiratory Rate 14 Actual Respiratory Rate 16 Actual Respiratory Rate 16 Positive End Expiratory 5 Pressure Positive End Expiratory 5 Pressure Positive End Expiratory 5 Pressure Positive End Expiratory 5 Pressure Positive End Expiratory 5 Pressure Positive End Expiratory 5 Pressure Positive End Expiratory 5 Pressure Positive End Expiratory 5 Pressure Positive End Expiratory 5 Pressure Positive End Expiratory 5 Pressure Positive End Expiratory 5 Pressure Positive End Expiratory 5 Pressure Positive End Expiratory 5 Pressure Peak Inspiratory Airway 21 Pressure Peak Inspiratory Airway 16 Pressure Peak Inspiratory Airway 18 Pressure Peak Inspiratory Airway 14 Pressure Peak Inspiratory Airway 9.8 Pressure Peak Inspiratory Airway 16 Pressure Peak Inspiratory Airway 6.8 Pressure Peak Inspiratory Airway 33 Pressure Peak Inspiratory Airway 22 Pressure Peak Inspiratory Airway 8.5 Pressure Peak Inspiratory Airway 17 Pressure Results - Laboratory Findings CBC and BMP: 11/07/17 03:35 11/07/17 03:35 ABG ABG pH 7.44 pH Units (7.32-7.45) 11/07/17 04:43 ABG pCO2 26 mmHg (35-45) L 11/07/17 04:43 ABG pO2 75 mmHg (85-104) L 11/07/17 04:43 ABG O2 Saturation 96 % (95-98) 11/07/17 04:43 PT/INR, D-dimer PT 11.2 Seconds (9.4-12.1) 11/04/17 18:18 Abnormal lab findings: Abnormal lab results WBC 14.8 K/mcL (4.3-11.1) H 11/07/17 03:35 RBC 3.51 M/mcL (3.82-4.97) L 11/07/17 03:35 Hgb 10.7 g/dL (11.5-15.4) L 11/07/17 03:35 Hct 32.6 % (35.3-44.9) L 11/07/17 03:35 Neutrophils # 12.3 K/mcL (1.6-8.9) H 11/07/17 03:35 APTT 84.1 Seconds (26.0-36.0) H 11/07/17 03:35 Heparin Anti-Xa, Unfract 1.92 IU/mL (0.30-0.70) H* 11/04/17 22:40 ABG pCO2 26 mmHg (35-45) L 11/07/17 04:43 ABG pO2 75 mmHg (85-104) L 11/07/17 04:43 ABG HCO3 17 mEq/L (21-27) L 11/07/17 04:43 ABG Total CO2 18 mEq/L (20-26) L 11/07/17 04:43 ABG Base Excess -6 mEq/L (-2 to 3) L 11/07/17 04:43 Chloride 113 mEq/L (98-107) H 11/07/17 03:35 Carbon Dioxide 19 mEq/L (23-29) L 11/07/17 03:35 Glucose 140 mg/dL (70-105) H 11/07/17 03:35 POC Glucose 144 mg/dL (70-99) H 11/07/17 17:37 Hemoglobin A1c 6.3 % (-5.6) H 11/05/17 03:30 Calcium 7.7 mg/dL (8.6-10.3) L 11/07/17 03:35 Troponin I > 73.00 ng/mL (< 0.04) H* 11/05/17 03:30 - Microbiology Findings Microbiology Findings: Microbiology, Last 48 Hours 11/05/17 15:13 Blood Culture - Preliminary Peripheral Venipuncture No growth. 11/07/17 03:55 Sputum Culture - Preliminary Sputum - Clinical Findings Intake & Output: Intake & Output 11/07/17 11/07/17 11/07/17 07:59 15:59 23:59 Intake Total 724 / 724 900 / 900 Output Total 105 / 105 190 / 190 150 / 150 Balance 619 / 619 710 / 710 -150 / -150 - Attending Attestation I saw and evaluated this patient and my medical decision-making was reviewed with the Resident Physician. I agree with the documented findings, disposition and treatment plan as described except to the extent set forth below. We independently had himn-on-xona contact with the patient Patient seen and examined at bedside Labs, radiology, chart personally reviewed. Management was reviewed during multidisciplinary critical care rounds. JURY CONSULTANT:Patient is sedated will wake her up today after the balloon pump is removed Pulm: Acute hypoxic respiratory failure secondary to hydrostatic pulmonary edema due to cardiogenic shock shows copious thick yellow secretion gram stain with gram positive cocci will start on broad spectrum antibiotics Cards:Cardiogenic shock IABP liberation according to cardiology ,Liberate from Levophed FEN-GI: To follow nutrition recs Renal: Labs reviewed ID: Concern for VAP to follow sputum cultures to continue broad spectrum antibiotics Heme/Onc:Labs reviewed Endo: Glucose Monitored Integ/MSK: Skin Care per routine ICU Nursing Protocol to prevent ulcers. Lines: All lines examined without evidence of infection : Dispo: critically ill CODE:Full Code
[2017-11-07 04:13] LABS: BUN/Creatinine Ratio 20 (6-26); Blood Urea Nitrogen 17 mg/dL (8-23); Calcium 7.7 mg/dL (8.6-10.3); Carbon Dioxide 19 mEq/L (23-29); Chloride 113 mEq/L (98-107); Glucose 140 mg/dL (70-105); Osmolality,Calculated 288 (280-300); Sodium 137 mEq/L (136-145); eGFR For African Americans > 60 (> 60); eGFR For Non-African Americans > 60 (> 60)
[2017-11-07] MEDS: Ipratropium/Albuterol Neb 3 ML IH SCH ×6 (04:43→23:49)
[2017-11-07 04:48] LABS: ABG Base Excess -6 mEq/L (-2 to 3); ABG HCO3 17 mEq/L (21-27); ABG Oxygen Saturation 96 % (95-98); ABG PCO2 26 mmHg (35-45); ABG PH 7.44 pH Units (7.32-7.45); ABG PO2 75 mmHg (85-104); ABG TCO2 18 mEq/L (20-26); Blood Gas Modality ASSIST CONTROL; Blood Gas PEEP 5 cm H2O; Blood Gas Respiration Rate 14; Blood Gas VT 450 cc
[2017-11-07 05:13] LABS: Magnesium 1.9 mg/dL (1.6-2.6)
[2017-11-07] MEDS: Heparin 25,000 UNIT/500 ML D5W 25,000 UNIT/500 ML BAG IVC SCH (08:18)
[2017-11-07] MEDS: Chlorhexidine Rinse 15 ML MOUTHWASH MM SCH ×2 (08:19→20:55)
[2017-11-07] MEDS: Aspirin 81 MG TAB.CHEW PO SCH (08:19)
[2017-11-07] MEDS: *HR* Ticagrelor 90 MG TABLET PO SCH ×2 (08:19→20:55)
[2017-11-07] MEDS: Pantoprazole 40 MG VIAL IVP SCH (08:19)
[2017-11-07] MEDS: Cefepime HCl 1,000 MG in Water for inj. (sterile) 20 ML 10 ML IVPB SCH ×2 (12:11→23:55)
[2017-11-07] MEDS ORDERED: 0.9 % Sodium Chloride 250 ML ONE (12:16)
--- NOTE | 2017-11-07 12:50 | Cardiology Progress Note ---
Date of Encounter: 11/07/17 Time of Encounter: 12:47 Assessment and Plan (1) STEMI (ST elevation myocardial infarction) Current Visit: Yes Status: Acute Anterior ST segment elevation myocardial infarction. LHC resulted in PCI to the LAD. Due to ECG changes, taken back to catheterization lab. Balloon pump placed, clot burden noted in the LAD. Patient placed on ReoPro, which was stopped yesterday. Heparin and balloon pump continued. Continue dual antiplatelet therapy. Consider beta william as hemodynamics stabilized. Continue statin therapy. Overall LVEF preserved, which is encouraging. Levophed discontinued earlier this morning. Recommend DC heparin in preparation for removal of balloon pump. Further recommendations to follow. Appreciate ICU care. Qualifiers: Involved coronary artery: LAD coronary artery Qualified Code(s): I21.02 - ST elevation (STEMI) myocardial infarction involving left anterior descending coronary artery Discussion w patient/family: The assessment and plan as outlined above was discussed with the patient and/or family members who expressed understanding and agreement. All questions were answered. Thank you for involving us in the care of your patient. Please call with any questions. Subjective Principal diagnosis: STEMI Interval history: Patient appears comfortable. Remains under mild sedation, on ventilator. Augmenting well on balloon pump. Urine output unchanged from yesterday. No new issues overnight. Objective Vital Signs, Last 4 Hours Temp Pulse Pulse Pulse Resp BP Pulse Ox 11/07/17 12:06 70 69 11/07/17 12:03 98.3 F 62 14 85/31 99 11/07/17 11:01 68 14 108/47 98 11/07/17 10:00 64 14 79/49 100 11/07/17 09:50 14 100 11/07/17 09:04 65 14 77/48 100 General: Other (Sedated, intubated.) Neck: No JVD, Normal carotid pulses Cardiac: Other (Distant, but appears regular.) Lungs: Other (Shallow, few scattered rhonchi) Neuro: Other (Sedated. Unresponsive.) Abdomen: Soft, Non-Tender Skin: No rashes noted on visualized skin Musculoskeletal: No Chest Wall Tenderness Extremities: No Clubbing, No Cyanosis, No Edema Results 11/07/17 03:35 11/07/17 03:35 Lab Results 11/06/17 11/06/17 11/07/17 05:00 12:50 03:35 WBC Hgb Hct Plt Count APTT 84.1 H Sodium Potassium 4.4 D Chloride Carbon Dioxide BUN Creatinine Glucose Calcium Magnesium 2.1 11/07/17 11/07/17 03:35 03:35 WBC 14.8 H Hgb 10.7 L Hct 32.6 L Plt Count 201 APTT Sodium 137 Potassium 4.0 Chloride 113 H Carbon Dioxide 19 L BUN 17 Creatinine 0.84 Glucose 140 H Calcium 7.7 L Magnesium 1.9 - Imaging and Cardiology Chest Xray: report reviewed Echo: report reviewed Cardiac cath: report reviewed - VTE Reasons for not Prescribing Prophylaxis: Not indicated-Anticoagulated or INR therapeutic Consult Discharge Plan - Plan Referrals: NONE,PCP [Primary Care Provider] -
--- NOTE | 2017-11-07 12:54 | Cardiology Progress Note ---
Date of Encounter: 11/07/17 Time of Encounter: 12:52 Assessment and Plan (1) STEMI (ST elevation myocardial infarction) Current Visit: Yes Status: Acute Anterior ST segment elevation myocardial infarction. LHC resulted in PCI to the LAD. Due to ECG changes, taken back to catheterization lab. Balloon pump placed, clot burden noted in the LAD. Patient placed on ReoPro, which was stopped yesterday. Heparin and balloon pump continued. Continue dual antiplatelet therapy. Consider beta william as hemodynamics stabilized. Continue statin therapy. Overall LVEF preserved, which is encouraging. Levophed discontinued earlier this morning. Recommend DC heparin in preparation for removal of balloon pump. Further recommendations to follow. Appreciate ICU care. Qualifiers: Involved coronary artery: LAD coronary artery Qualified Code(s): I21.02 - ST elevation (STEMI) myocardial infarction involving left anterior descending coronary artery Discussion w patient/family: The assessment and plan as outlined above was discussed with the patient who expressed understanding and agreement. All questions were answered. Thank you for involving us in the care of your patient. Please call with any questions. Discussed and reviewed with Subjective Principal diagnosis: STEMI Interval history: Patient intubated and sedated. IABP in place. On vasopressors. Objective Vital Signs, Last 4 Hours Temp Pulse Pulse Pulse Resp BP Pulse Ox 11/07/17 12:06 70 69 11/07/17 12:03 98.3 F 62 14 85/31 99 11/07/17 11:01 68 14 108/47 98 11/07/17 10:00 64 14 79/49 100 11/07/17 09:50 14 100 11/07/17 09:04 65 14 77/48 100 General: Other (Intubated and sedated. ) HEENT: Atraumatic, Normocephaly, Mucus Membranes Moist Neck: No JVD, Normal carotid pulses Cardiac: Reg Rate and Rhythm, Normal S1 and S2, No Murmur Lungs: Normal Breath Sounds, No Wheeze, Rales, Rhonchi Neuro: Other (Sedated) Abdomen: Soft Skin: No rashes noted on visualized skin Musculoskeletal: No Chest Wall Tenderness, Other (Bilateral groin sheaths intact ) Extremities: No Clubbing, No Cyanosis, No Edema, Other (Pulses per doppler.) Results 11/07/17 03:35 11/07/17 03:35 Lab Results Impressions Chest X-Ray 11/06/17 15:02 IMPRESSION: IABP tip projects over the descending thoracic aorta, approximately 2.5 cm below the level of the aortic arch. D/ / 11/06/2017 15:25:01 Cyrus Manuel MD / bcarter Interpreting Provider: Cyrus Manuel MD KUB X-Ray 11/06/17 15:54 IMPRESSION: Enteric tube in place as above. Minimal left basilar airspace disease, likely atelectasis. D/ / Marcia Teran Cha, MD / Marcia Teran Cha, MD Interpreting Provider: Marcia Teran Cha, MD Chest X-Ray 11/06/17 16:39 IMPRESSION: IABP tip now projects over the inferior most aspect of the aortic arch. Likely small left effusion and atelectasis. D/ / Giovani Smith MD / Giovani Smith MD Interpreting Provider: Giovani Smith MD Chest X-Ray 11/07/17 04:44 IMPRESSION: Left pleural effusion with bibasilar atelectasis, left greater than right. D/ / 11/07/2017 08:17:38 Bobo Mendoza MD / [email or web address] Interpreting Provider: Bobo Mendoza MD Active Medications Albuterol/Ipratropium (Duoneb) 3 ml IH [id number] JORGE Stop: 05/09/18 04:16 Last Admin: 11/07/17 12:05 Dose: 3 ml Aspirin (Aspirin) 81 mg PO DAILY JORGE Stop: 05/07/18 09:01 Last Admin: 11/07/17 08:19 Dose: 81 mg Atorvastatin Calcium (Lipitor) 80 mg PO HS JORGE Stop: 05/07/18 21:01 Last Admin: 11/06/17 20:32 Dose: 80 mg Chlorhexidine Gluconate (Chlorhexidine Rinse) 15 ml MM BID JORGE Stop: 05/07/18 14:01 Last Admin: 11/07/17 08:19 Dose: 15 ml Dextrose/Water (Dextrose 50% (Syg)) 25 ml IVP AD PRN PRN Reason: Hypoglycemia Stop: 05/06/18 23:03 Glucagon (Glucagen) 1 mg IM ONCE PRN PRN Reason: Hypoglycemia Stop: 05/06/18 23:03 Glucose (Gluctose) 15 gm PO ONCE PRN PRN Reason: Hypoglycemia Stop: 05/06/18 23:00 Glucose (Gluctose) 30 gm PO ONCE PRN PRN Reason: Hypoglycemia Stop: 05/06/18 23:00 Heparin Sodium (Porcine) (Heparin) 3,600 unit IVP Q6HR PRN; Protocol PRN Reason: SEE COMMENTS Stop: 05/06/18 18:19 Heparin Sodium (Porcine) (Heparin) 1,800 unit IVP Q6H PRN; Protocol PRN Reason: SEE COMMENTS Stop: 05/06/18 18:19 Heparin Sodium/Dextrose (Heparin 25,000 Unit/500 Ml D5w) 25,000 unit in 500 mls @ 14.587 mls/hr IVC .Q24H JORGE; 12 UNIT/KG/HR PRN Reason: Protocol Stop: 05/06/18 18:31 Last Titration: 11/07/17 10:30 Dose: 0 unit/kg/hr, 0 mls/hr Fentanyl Citrate 1,000 mcg/ (Sodium Chloride) 100 mls @ 5 mls/hr IVC CONT JORGE; 50 MCG/HR PRN Reason: Protocol Stop: 05/06/18 20:46 Last Titration: 11/07/17 10:00 Dose: 25 mcg/hr, 2.5 mls/hr Midazolam HCl 50 mg/ Sodium (Chloride) 100 mls @ 4 mls/hr IVC CONT JORGE; 2 MG/HR PRN Reason: Protocol Stop: 05/06/18 20:46 Last Titration: 11/07/17 09:00 Dose: 0 mg/hr, 0 mls/hr Norepinephrine Bitartrate 4 mg (/ Dextrose) 254 mls @ 30.48 mls/hr IVC CONT JORGE ; 8 MCG/MIN PRN Reason: Protocol Stop: 05/06/18 23:01 Last Titration: 11/07/17 06:56 Dose: 4 mcg/min, 15.24 mls/hr Dextrose (Dextrose 5%) 1,000 mls @ 100 mls/hr IVC .Q10H PRN PRN Reason: HYPOGLYCEMIA Stop: 05/06/18 23:00 Potassium Chloride (Potassium Chloride 20 Meq/100 Ml) 40 meq in 200 mls @ 100 mls/hr IVPB Q1H PRN PRN Reason: POTASSIUM 2.8 Stop: 05/07/18 10:34 Last Infusion: 11/06/17 08:52 Dose: Infused Magnesium Sulfate (Magnesium Sulfate Premix 2gm/50ml) 2 gm in 50 mls @ 50 mls/ hr IVPB Q5H PRN PRN Reason: Magnesium less than 2.4 Stop: 05/07/18 13:01 Potassium Chloride (Potassium Chloride 20 Meq/100 Ml) 40 meq in 200 mls @ 100 mls/hr IVPB Q1H PRN PRN Reason: ELECTROLYTE PROTOCOL Stop: 05/07/18 12:59 Cefepime HCl 1,000 mg/ Sterile (Water) 10 mls @ 150 mls/hr IVPB Q12H JORGE Stop: 05/09/18 12:01 Last Infusion: 11/07/17 12:44 Dose: Infused Vancomycin HCl 1,000 mg/ (Sodium Chloride) 250 mls @ 167 mls/hr IVPB Q24H JORGE PRN Reason: Protocol Stop: 05/09/18 12:01 Last Admin: 11/07/17 12:10 Dose: 167 mls/hr Insulin Human Lispro (Humalog) 0 units SQ Q6HR JORGE PRN Reason: Protocol Stop: 05/07/18 00:01 Last Admin: 11/07/17 12:07 Dose: 4 units Pantoprazole Sodium (Protonix) 40 mg IVP DAILY JORGE Stop: 05/07/18 14:01 Last Admin: 11/07/17 08:19 Dose: 40 mg Ticagrelor (Brilinta) 90 mg PO BID JORGE Stop: 05/08/18 21:01 Last Admin: 11/07/17 08:19 Dose: 90 mg Laboratory Tests 11/07/17 11/07/17 03:35 03:35 WBC 14.8 H Hgb 10.7 L Creatinine 0.84 - Imaging and Cardiology Chest Xray: report reviewed Echo: report reviewed Cardiac cath: report reviewed - EKG Interpretation EKG results cardiology: other (Telemetry reviewed with average HR previous 12 hours noted to be 64, SR. PVCs and PACs noted.) - VTE Reasons for not Prescribing Prophylaxis: Not indicated-Anticoagulated or INR therapeutic Consult Discharge Plan - Plan Referrals: NONE,PCP [Primary Care Provider] -
--- NOTE | 2017-11-07 16:04 | Electrocardiograph Report ---
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
--- NOTE | 2017-11-08 03:13 | Pulmonology Progress Note ---
<Zachariah Lezama - Last Filed: 11/08/17 03:26> Date of Encounter: 11/08/17 Time of Encounter: 03:11 Assessment and Plan (1) Pneumonia Current Visit: Yes Status: Acute Ventilator associated pneumonia The patient developed copious sputum production and significant rhonchi while on ventilator which has since improved Sputum culture demonstrates numerous gram positive cocci She has developed low grade fevers overnight, and her white count remains elevated We started the patient on Vancomycin and Cefepime yesterday, continue these antibiotics Vancomycin Day 2 Cefepime Day 2 Qualifiers: Pneumonia type: due to unspecified organism Laterality: bilateral Lung location: unspecified part of lung Qualified Code(s): J18.9 - Pneumonia, unspecified organism (2) Acute respiratory failure Current Visit: Yes Status: Acute Patient Acute hypoxic respiratory failure secondary to hydrostatic pulmonary edema secondary to cardiogenic shock due to underlying STEMI Goal to liberate from vent and from pressors as soon as possible Sputum cultures are positive for gram positive cocci We started antibiotics today, continue to monitor Add duonebs for wheezing and rhonchi Qualifiers: Respiratory failure complication: hypoxia Qualified Code(s): J96.01 - Acute respiratory failure with hypoxia (3) STEMI (ST elevation myocardial infarction) Current Visit: Yes Status: Acute Patient has instant thrombosis after PCI developed dissection developed a large anterior wall OR with cardiogenic shock Managment according to cardiology Continued management per cardiology Qualifiers: Involved coronary artery: LAD coronary artery Qualified Code(s): I21.02 - ST elevation (STEMI) myocardial infarction involving left anterior descending coronary artery (4) Cardiogenic shock Current Visit: Yes Status: Acute Patient is in cardiogenic shock with IABP 1: 1 Support now with Levophed support plan is to liberate both supports to follow cardiology recs Currently requires minimal levophed for pressure support (5) DVT prophylaxis Current Visit: No Status: Acute Patient is on heparin drip Subjective Principal diagnosis: STEMI Interval history: The patient is sedated and on the ventilator. She has developed a ventilator associated pneumonia for which cefepime and vancomycin were addid. Since that time, she seems to be doing well. Objective PUL Vital signs: Last Vital Signs Temp 99.1 F 11/08/17 00:18 Pulse 86 11/08/17 02:00 Resp 14 11/08/17 02:00 BP 100/47 11/08/17 02:00 Pulse Ox 94 05/02/18 02:00 Gen: Vitals noted. Sedated on ventilator HEENT: Normocephalic, atraumatic Neck: Supple. No adenopathy. Cardiac: RRR, no murmur, +S1/S2 Pulmonary: CTAB, significantly improved from prior exam Abdomen: soft, nontender, BS noted, no guarding Back: Nontender throughout. MSK: ROM intact, no joint swelling noted Extremities: no BLE edema, nontender calf, no cyanosis or clubbing Neuro: Sedated on ventilator Ventilator Settings Ventilator Settings: Ventilator Settings, Last 8 Hours Ventilator Mode VC+ Ventilator Mode VC+ Ventilator Mode VC+ Ventilator Mode VC+ Ventilator Mode VC+ Ventilator Mode VC+ Ventilator Mode VC+ Ventilator Tidal Volume 450 Setting Ventilator Tidal Volume 450 Setting Ventilator Tidal Volume 450 Setting Ventilator Tidal Volume 450 Setting Ventilator Tidal Volume 450 Setting Ventilator Tidal Volume 450 Setting Ventilator Tidal Volume 450 Setting Ventilator Tidal Volume 450 Setting Ventilator Tidal Volume 450 Setting Ventilator Tidal Volume 450 Setting Ventilator Tidal Volume 450 Setting Ventilator Respiratory Rate 14 Setting Ventilator Respiratory Rate 14 Setting Ventilator Respiratory Rate 14 Setting Ventilator Respiratory Rate 14 Setting Ventilator Respiratory Rate 14 Setting Ventilator Respiratory Rate 14 Setting Ventilator Respiratory Rate 14 Setting Ventilator Respiratory Rate 14 Setting Ventilator Respiratory Rate 14 Setting Ventilator Respiratory Rate 14 Setting Ventilator Respiratory Rate 14 Setting Actual Respiratory Rate 14 Actual Respiratory Rate 14 Actual Respiratory Rate 14 Actual Respiratory Rate 14 Actual Respiratory Rate 14 Actual Respiratory Rate 14 Actual Respiratory Rate 14 Actual Respiratory Rate 14 Actual Respiratory Rate 14 Actual Respiratory Rate 14 Actual Respiratory Rate 18 Positive End Expiratory 5 Pressure Positive End Expiratory 5 Pressure Positive End Expiratory 5 Pressure Positive End Expiratory 5 Pressure Positive End Expiratory 5 Pressure Positive End Expiratory 5 Pressure Positive End Expiratory 5 Pressure Positive End Expiratory 5 Pressure Positive End Expiratory 5 Pressure Positive End Expiratory 5 Pressure Positive End Expiratory 5 Pressure Peak Inspiratory Airway 19 Pressure Peak Inspiratory Airway 18 Pressure Peak Inspiratory Airway 22 Pressure Peak Inspiratory Airway 23 Pressure Peak Inspiratory Airway 20 Pressure Peak Inspiratory Airway 21 Pressure Peak Inspiratory Airway 16 Pressure Peak Inspiratory Airway 18 Pressure Peak Inspiratory Airway 14 Pressure Peak Inspiratory Airway 9.8 Pressure Peak Inspiratory Airway 16 Pressure Results - Laboratory Findings CBC and BMP: 11/07/17 03:35 11/07/17 03:35 ABG ABG pH 7.44 pH Units (7.32-7.45) 11/07/17 04:43 ABG pCO2 26 mmHg (35-45) L 11/07/17 04:43 ABG pO2 75 mmHg (85-104) L 11/07/17 04:43 ABG O2 Saturation 96 % (95-98) 11/07/17 04:43 PT/INR, D-dimer PT 11.2 Seconds (9.4-12.1) 11/04/17 18:18 Abnormal lab findings: Abnormal lab results WBC 14.8 K/mcL (4.3-11.1) H 11/07/17 03:35 RBC 3.51 M/mcL (3.82-4.97) L 11/07/17 03:35 Hgb 10.7 g/dL (11.5-15.4) L 11/07/17 03:35 Hct 32.6 % (35.3-44.9) L 11/07/17 03:35 Neutrophils # 12.3 K/mcL (1.6-8.9) H 11/07/17 03:35 APTT 84.1 Seconds (26.0-36.0) H 11/07/17 03:35 Heparin Anti-Xa, Unfract 1.92 IU/mL (0.30-0.70) H* 11/04/17 22:40 ABG pCO2 26 mmHg (35-45) L 11/07/17 04:43 ABG pO2 75 mmHg (85-104) L 11/07/17 04:43 ABG HCO3 17 mEq/L (21-27) L 11/07/17 04:43 ABG Total CO2 18 mEq/L (20-26) L 11/07/17 04:43 ABG Base Excess -6 mEq/L (-2 to 3) L 11/07/17 04:43 Chloride 113 mEq/L (98-107) H 11/07/17 03:35 Carbon Dioxide 19 mEq/L (23-29) L 11/07/17 03:35 Glucose 140 mg/dL (70-105) H 11/07/17 03:35 POC Glucose 120 mg/dL (70-99) H 11/07/17 23:46 Hemoglobin A1c 6.3 % (-5.6) H 11/05/17 03:30 Calcium 7.7 mg/dL (8.6-10.3) L 11/07/17 03:35 Troponin I > 73.00 ng/mL (< 0.04) H* 11/05/17 03:30 - Microbiology Findings Microbiology Findings: Microbiology, Last 48 Hours 11/05/17 15:13 Blood Culture - Preliminary Peripheral Venipuncture No growth. 11/07/17 03:55 Sputum Culture - Preliminary Sputum - Clinical Findings Intake & Output: Intake & Output 11/07/17 11/07/17 11/08/17 15:59 23:59 07:59 Intake Total 1150 / 1150 10 10 Output Total 190 / 190 150 / 150 35 / 35 Balance 960 / 960 -150 / -150 -25 / -25 Weight 70.8 kg - VTE Reasons for not Prescribing Prophylaxis: Not indicated-Anticoagulated or INR therapeutic Consult Discharge Plan - Plan Referrals: NONE,PCP [Primary Care Provider] - <Kimberly Sherwood - Last Filed: 11/08/17 20:10> Date of Encounter: 11/08/17 Assessment and Plan (1) Acute respiratory failure Current Visit: Yes Status: Acute Qualifiers: Respiratory failure complication: hypoxia Qualified Code(s): J96.01 - Acute respiratory failure with hypoxia (2) STEMI (ST elevation myocardial infarction) Current Visit: Yes Status: Acute Qualifiers: Involved coronary artery: LAD coronary artery Qualified Code(s): I21.02 - ST elevation (STEMI) myocardial infarction involving left anterior descending coronary artery (3) Cardiogenic shock Current Visit: Yes Status: Acute (4) DVT prophylaxis Current Visit: No Status: Acute Objective PUL Vital signs: Last Vital Signs Temp 99.0 F 11/08/17 19:22 Pulse 73 11/08/17 18:00 Resp 16 11/08/17 18:00 BP 129/59 11/08/17 18:00 Pulse Ox 97 11/08/17 18:00 Ventilator Settings Ventilator Settings: Ventilator Settings, Last 8 Hours Ventilator Mode VC+ Ventilator Mode VC+ Ventilator Mode VC+ Ventilator Mode VC+ Ventilator Mode CPAP Ventilator Mode CPAP Ventilator Mode CPAP Ventilator Tidal Volume 450 Setting Ventilator Tidal Volume 450 Setting Ventilator Tidal Volume 450 Setting Ventilator Tidal Volume 450 Setting Ventilator Tidal Volume 450 Setting Ventilator Tidal Volume 450 Setting Ventilator Tidal Volume 450 Setting Ventilator Tidal Volume 450 Setting Ventilator Respiratory Rate 14 Setting Ventilator Respiratory Rate 14 Setting Ventilator Respiratory Rate 14 Setting Ventilator Respiratory Rate 14 Setting Ventilator Respiratory Rate 14 Setting Ventilator Respiratory Rate 14 Setting Ventilator Respiratory Rate 14 Setting Ventilator Respiratory Rate 14 Setting Actual Respiratory Rate 16 Actual Respiratory Rate 17 Actual Respiratory Rate 17 Actual Respiratory Rate 18 Actual Respiratory Rate 14 Actual Respiratory Rate 14 Actual Respiratory Rate 26 Actual Respiratory Rate 26 Actual Respiratory Rate 26 Actual Respiratory Rate 28 Positive End Expiratory 5 Pressure Positive End Expiratory 5 Pressure Positive End Expiratory 5 Pressure Positive End Expiratory 5 Pressure Positive End Expiratory 5 Pressure Positive End Expiratory 5 Pressure Positive End Expiratory 5 Pressure Positive End Expiratory 5 Pressure Positive End Expiratory 5 Pressure Peak Inspiratory Airway 18 Pressure Peak Inspiratory Airway 18 Pressure Peak Inspiratory Airway 17 Pressure Peak Inspiratory Airway 17 Pressure Peak Inspiratory Airway 17 Pressure Peak Inspiratory Airway 19 Pressure Peak Inspiratory Airway 11 Pressure Peak Inspiratory Airway 11 Pressure Results - Laboratory Findings CBC and BMP: 11/08/17 03:58 11/08/17 11:30 ABG ABG pH 7.38 pH Units (7.32-7.45) 11/08/17 04:36 ABG pCO2 32 mmHg (35-45) L 11/08/17 04:36 ABG pO2 70 mmHg (85-104) L 11/08/17 04:36 ABG O2 Saturation 94 % (95-98) L 11/08/17 04:36 PT/INR, D-dimer PT 11.2 Seconds (9.4-12.1) 11/04/17 18:18 Abnormal lab findings: Abnormal lab results WBC 11.5 K/mcL (4.3-11.1) H 11/08/17 03:58 RBC 3.26 M/mcL (3.82-4.97) L 11/08/17 03:58 Hgb 10.0 g/dL (11.5-15.4) L 11/08/17 03:58 Hct 29.8 % (35.3-44.9) L 11/08/17 03:58 Neutrophils # 9.9 K/mcL (1.6-8.9) H 11/08/17 03:58 Lymphocytes # 0.3 K/mcL (0.6-4.6) L 11/08/17 03:58 Heparin Anti-Xa, Unfract 1.92 IU/mL (0.30-0.70) H* 11/04/17 22:40 ABG pCO2 32 mmHg (35-45) L 11/08/17 04:36 ABG pO2 70 mmHg (85-104) L 11/08/17 04:36 ABG HCO3 19 mEq/L (21-27) L 11/08/17 04:36 ABG O2 Saturation 94 % (95-98) L 11/08/17 04:36 ABG Base Excess -6 mEq/L (-2 to 3) L 11/08/17 04:36 VBG pH 7.30 pH Units (7.32-7.42) L 11/08/17 04:35 Chloride 111 mEq/L (98-107) H 11/08/17 03:58 Carbon Dioxide 19 mEq/L (23-29) L 11/08/17 03:58 BUN 24 mg/dL (8-23) H 11/08/17 03:58 Est GFR (Non-Af Amer) 57 (> 60) L 11/08/17 03:58 Glucose 156 mg/dL (70-105) H 11/08/17 03:58 POC Glucose 120 mg/dL (70-99) H 11/07/17 23:46 Hemoglobin A1c 6.3 % (-5.6) H 11/05/17 03:30 Calcium 8.2 mg/dL (8.6-10.3) L 11/08/17 03:58 Troponin I > 73.00 ng/mL (< 0.04) H* 11/05/17 03:30 - Microbiology Findings Microbiology Findings: Microbiology, Last 48 Hours 11/07/17 03:55 Sputum Culture - Preliminary Sputum Gram Positive Cocci 11/05/17 15:13 Blood Culture - Preliminary Peripheral Venipuncture No growth. - Clinical Findings Intake & Output: Intake & Output 11/08/17 11/08/17 11/08/17 07:59 15:59 23:59 Intake Total 280 / 280 260 / 260 0 / 0 Output Total 117 / 117 325 / 325 150 / 150 Balance 163 / 163 -65 / -65 -150 / -150 Weight 70.8 kg - Attending Attestation - Attending Attestation I saw and evaluated this patient and my medical decision-making was reviewed with the Resident Physician. I agree with the documented findings, disposition and treatment plan as described except to the extent set forth below. We independently had [id number] contact with the patient Patient seen and examined at bedside Labs, radiology, chart personally reviewed. Management was reviewed during multidisciplinary critical care rounds. 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 Will extubate once she follows commands Cards:Cardiogenic shock reversed off vasopressors, managment according to cardiology FEN-GI: To follow nutrition recs Renal: Labs reviewed ID: Sputum culture is growing MRSA to continue broad spectrum antibiotics Heme/Onc:Labs reviewed Endo: Glucose Monitored Integ/MSK: Skin Care per routine ICU Nursing Protocol to prevent ulcers. Lines: All lines examined without evidence of infection : Dispo: critically ill CODE:Full Code
[2017-11-08] MEDS: Ipratropium/Albuterol Neb 3 ML IH SCH ×6 (03:26→23:50)
[2017-11-08 04:12] LABS: Basophils % 0.2 %; Eosinophils % 0.3 %; Hematocrit 29.8 % (35.3-44.9); Immature Granulocytes % 0.5 % (0-4); Lymphocytes # 0.3 K/mcL (0.6-4.6); Lymphocytes % 2.4 %; Mean Corpuscular HGB Conc 33.6 g/dL (31.6-35.5); Mean Corpuscular Hemoglobin 30.7 pg (28.0-33.3); Mean Corpuscular Volume 91.4 fL (83.0-100.0); Mean Platelet Volume 10.6 fL (9.4-12.4); Monocytes # 1.2 K/mcL (0.0-1.3); Monocytes % 10.2 %; Neutrophils # 9.9 K/mcL (1.6-8.9); Platelet Count 196 K/mcL (140-400); Red Blood Count 3.26 M/mcL (3.82-4.97); Red Cell Distribution Width 13.9 % (11.5-14.5); Segmented Neutrophils % 86.4 %
[2017-11-08 04:30] LABS: Phosphorous 2.5 mg/dL (2.7-4.5)
[2017-11-08 04:31] LABS: BUN/Creatinine Ratio 26 (6-26); Blood Urea Nitrogen 24 mg/dL (8-23); Calcium 8.2 mg/dL (8.6-10.3); Carbon Dioxide 19 mEq/L (23-29); Chloride 111 mEq/L (98-107); Glucose 156 mg/dL (70-105); Osmolality,Calculated 289 (280-300); Potassium 3.6 mEq/L (3.5-5.1); Sodium 136 mEq/L (136-145); eGFR For African Americans > 60 (> 60); eGFR For Non-African Americans 57 (> 60)
[2017-11-08 04:38] LABS: VBG Ionized Calcium 1.25 mmol/L (1.15-1.35)
[2017-11-08 04:39] LABS: ABG Base Excess -6 mEq/L (-2 to 3); ABG HCO3 19 mEq/L (21-27); ABG Oxygen Saturation 94 % (95-98); ABG PCO2 32 mmHg (35-45); ABG PH 7.38 pH Units (7.32-7.45); ABG PO2 70 mmHg (85-104); ABG TCO2 20 mEq/L (20-26); Blood Gas Modality VC; Blood Gas PEEP 5 cm H2O; Blood Gas Respiration Rate 14; Blood Gas VT 450 cc
[2017-11-08] MEDS: Potassium Chloride 40 MEQ/200 ML BAG IVPB PRN ×2 (05:03→15:23)
[2017-11-08] MEDS: Insulin LISPRO 300 UNITS/3 ML VIAL SQ SCH ×4 (05:04→23:29)
[2017-11-08] MEDS: Pantoprazole 40 MG VIAL IVP SCH (08:01)
[2017-11-08] MEDS: Aspirin 81 MG TAB.CHEW PO SCH (08:01)
[2017-11-08] MEDS: Chlorhexidine Rinse 15 ML MOUTHWASH MM SCH ×2 (08:01→20:04)
[2017-11-08] MEDS: *HR* Ticagrelor 90 MG TABLET PO SCH ×2 (08:01→20:04)
--- NOTE | 2017-11-08 10:10 | Cardiology Progress Note ---
Date of Encounter: 11/08/17 Time of Encounter: 09:30 Assessment and Plan (1) STEMI (ST elevation myocardial infarction) Current Visit: Yes Status: Acute Per cardiology: -Anterior ST segment elevation myocardial infarction. -C resulted in PCI to the LAD. -Due to ECG changes, taken back to catheterization lab. -Balloon pump placed, clot burden noted in the LAD. -Patient placed on ReoPro, now off. -Heparin and balloon pump have been discontinued. -Continue dual antiplatelet therapy uninterrupted for at least one year. -Consider beta william as hemodynamics stabilized. Now off vasopressors. -Continue statin therapy. -Overall LVEF preserved, which is encouraging. -Currently on CPAP trial 5/5 FiO2 30%. -Will continue to monitor. Qualifiers: Involved coronary artery: LAD coronary artery Qualified Code(s): I21.02 - ST elevation (STEMI) myocardial infarction involving left anterior descending coronary artery Discussion w patient/family: The assessment and plan as outlined above was discussed with the patient. All questions were answered. Thank you for involving us in the care of your patient. Please call with any questions. Discussed and reviewed with . Subjective Principal diagnosis: STEMI Interval history: Currently intubated, off sedation. ON CPAP trial. Moves head and heads to tactile stimuli. Opens eyes to tactile stimuli. Balloon pump removed. Objective Vital Signs, Last 4 Hours Temp Pulse Resp BP Pulse Ox 11/08/17 10:00 98 19 135/55 93 11/08/17 09:55 20 135/55 98 11/08/17 09:00 100 20 123/49 93 11/08/17 08:00 98.0 F 76 22 137/56 91 11/08/17 07:44 19 121/64 97 11/08/17 07:00 71 19 121/64 97 General: Other (Intubated, arouses to tactile stimuli. ) HEENT: Atraumatic, Normocephaly, Mucus Membranes Moist Neck: No JVD, Normal carotid pulses Cardiac: Reg Rate and Rhythm, Normal S1 and S2, No Murmur Lungs: Other (Lungs sounds coarse. ) Neuro: Other (Arouses to tactile stimuli. ) Abdomen: Soft, Non-Tender Skin: No rashes noted on visualized skin, Other (Bilateral groin access sites without hematoma. ) Musculoskeletal: No Chest Wall Tenderness Extremities: No Clubbing, No Cyanosis, No Edema, Other (Bilateral pulses per doppler. ) Results 11/08/17 03:58 11/08/17 03:58 Lab Results Active Medications Albuterol/Ipratropium (Duoneb) 3 ml IH [id number] JORGE Stop: 05/09/18 04:16 Last Admin: 11/08/17 07:43 Dose: 3 ml Aspirin (Aspirin) 81 mg PO DAILY JORGE Stop: 05/07/18 09:01 Last Admin: 11/08/17 08:01 Dose: 81 mg Atorvastatin Calcium (Lipitor) 80 mg PO HS JORGE Stop: 05/07/18 21:01 Last Admin: 11/07/17 20:55 Dose: 80 mg Chlorhexidine Gluconate (Chlorhexidine Rinse) 15 ml MM BID JORGE Stop: 05/07/18 14:01 Last Admin: 11/08/17 08:01 Dose: 15 ml Dextrose/Water (Dextrose 50% (Syg)) 25 ml IVP AD PRN PRN Reason: Hypoglycemia Stop: 05/06/18 23:03 Glucagon (Glucagen) 1 mg IM ONCE PRN PRN Reason: Hypoglycemia Stop: 05/06/18 23:03 Glucose (Gluctose) 15 gm PO ONCE PRN PRN Reason: Hypoglycemia Stop: 05/06/18 23:00 Glucose (Gluctose) 30 gm PO ONCE PRN PRN Reason: Hypoglycemia Stop: 05/06/18 23:00 Heparin Sodium (Porcine) (Heparin) 3,600 unit IVP Q6HR PRN; Protocol PRN Reason: SEE COMMENTS Stop: 05/06/18 18:19 Heparin Sodium (Porcine) (Heparin) 1,800 unit IVP Q6H PRN; Protocol PRN Reason: SEE COMMENTS Stop: 05/06/18 18:19 Heparin Sodium/Dextrose (Heparin 25,000 Unit/500 Ml D5w) 25,000 unit in 500 mls @ 14.587 mls/hr IVC .Q24H JORGE; 12 UNIT/KG/HR PRN Reason: Protocol Stop: 05/06/18 18:31 Last Titration: 11/07/17 10:30 Dose: 0 unit/kg/hr, 0 mls/hr Fentanyl Citrate 1,000 mcg/ (Sodium Chloride) 100 mls @ 5 mls/hr IVC CONT JORGE; 50 MCG/HR PRN Reason: Protocol Stop: 05/06/18 20:46 Last Titration: 11/08/17 05:19 Dose: 0 mcg/hr, 0 mls/hr Midazolam HCl 50 mg/ Sodium (Chloride) 100 mls @ 4 mls/hr IVC CONT JORGE; 2 MG/HR PRN Reason: Protocol Stop: 05/06/18 20:46 Last Titration: 11/07/17 09:00 Dose: 0 mg/hr, 0 mls/hr Norepinephrine Bitartrate 4 mg (/ Dextrose) 254 mls @ 30.48 mls/hr IVC CONT JORGE ; 8 MCG/MIN PRN Reason: Protocol Stop: 05/06/18 23:01 Last Titration: 11/07/17 06:56 Dose: 4 mcg/min, 15.24 mls/hr Dextrose (Dextrose 5%) 1,000 mls @ 100 mls/hr IVC .Q10H PRN PRN Reason: HYPOGLYCEMIA Stop: 05/06/18 23:00 Potassium Chloride (Potassium Chloride 20 Meq/100 Ml) 40 meq in 200 mls @ 100 mls/hr IVPB Q1H PRN PRN Reason: POTASSIUM 2.8 Stop: 05/07/18 10:34 Last Infusion: 11/06/17 08:52 Dose: Infused Magnesium Sulfate (Magnesium Sulfate Premix 2gm/50ml) 2 gm in 50 mls @ 50 mls/ hr IVPB Q5H PRN PRN Reason: Magnesium less than 2.4 Stop: 05/07/18 13:01 Potassium Chloride (Potassium Chloride 20 Meq/100 Ml) 40 meq in 200 mls @ 100 mls/hr IVPB Q1H PRN PRN Reason: ELECTROLYTE PROTOCOL Stop: 05/07/18 12:59 Last Infusion: 11/08/17 07:10 Dose: Infused Cefepime HCl 1,000 mg/ Sterile (Water) 10 mls @ 150 mls/hr IVPB Q12H JORGE Stop: 05/09/18 12:01 Last Infusion: 11/08/17 00:00 Dose: Infused Vancomycin HCl 1,000 mg/ (Sodium Chloride) 250 mls @ 167 mls/hr IVPB Q24H JORGE PRN Reason: Protocol Stop: 05/09/18 12:01 Last Infusion: 11/07/17 13:40 Dose: Infused Insulin Human Lispro (Humalog) 0 units SQ Q6HR JORGE PRN Reason: Protocol Stop: 05/07/18 00:01 Last Admin: 11/08/17 05:04 Dose: 4 units Pantoprazole Sodium (Protonix) 40 mg IVP DAILY [facility] Stop: 05/07/18 14:01 Last Admin: 11/08/17 08:01 Dose: 40 mg Ticagrelor (Brilinta) 90 mg PO BID JORGE Stop: 05/08/18 21:01 Last Admin: 11/08/17 08:01 Dose: 90 mg Laboratory Tests 11/08/17 11/08/17 03:58 03:58 WBC 11.5 H Hgb 10.0 L Creatinine 0.94 - Imaging and Cardiology Chest Xray: report reviewed Echo: report reviewed Cardiac cath: report reviewed - EKG Interpretation EKG results cardiology: other (Telemetry reviewed with average HR previous 12 hours noted to be 80, SR, PVCs and PACs noted. Short run of atrial tachcyardia noted.) - VTE Reasons for not Prescribing Prophylaxis: Not indicated-Anticoagulated or INR therapeutic Consult Discharge Plan - Plan Referrals: NONE,PCP [Primary Care Provider] -
[2017-11-08] MEDS: Cefepime HCl 1,000 MG in Water for inj. (sterile) 20 ML 10 ML IVPB SCH ×2 (11:27→23:51)
[2017-11-08 12:01] LABS: Phosphorous 2.7 mg/dL (2.7-4.5); Potassium 3.7 mEq/L (3.5-5.1)
[2017-11-08] MEDS ORDERED: *HR* Metoprolol 5 MG/5 ML VIAL IVP ONE (12:06)
[2017-11-08] MEDS: *HR* Heparin 5,000 UNIT/ML VIAL SQ SCH (18:27)
[2017-11-08] MEDS ORDERED: Potassium Phosphate 44 MEQ in 0.9 % Sodium Chloride 250 ML IVPB PRN (19:23)
[2017-11-08] MEDS: Norepinephrine 4 MG in D5% in Water 250 ML IVC SCH (22:17)
[2017-11-09] MEDS: FentaNYL (PF) 1,000 MCG in 0.9 % Sodium Chloride 80 ML IVC SCH (02:30)
[2017-11-09] MEDS: Ipratropium/Albuterol Neb 3 ML IH SCH ×6 (03:39→23:05)
[2017-11-09 03:55] LABS: Basophils % 0.2 %; Eosinophils # 0.1 K/mcL (0.0-0.6); Eosinophils % 0.9 %; Hematocrit 31.6 % (35.3-44.9); Hemoglobin 10.5 g/dL (11.5-15.4); Immature Granulocytes % 0.6 % (0-4); Lymphocytes # 0.4 K/mcL (0.6-4.6); Lymphocytes % 3.1 %; Mean Corpuscular HGB Conc 33.2 g/dL (31.6-35.5); Mean Corpuscular Hemoglobin 30.8 pg (28.0-33.3); Mean Corpuscular Volume 92.7 fL (83.0-100.0); Monocytes # 1.3 K/mcL (0.0-1.3); Monocytes % 9.3 %; Neutrophils # 11.7 K/mcL (1.6-8.9); Platelet Count 257 K/mcL (140-400); Red Blood Count 3.41 M/mcL (3.82-4.97); Red Cell Distribution Width 14.1 % (11.5-14.5); Segmented Neutrophils % 85.9 %
[2017-11-09 04:18] LABS: BUN/Creatinine Ratio 28 (6-26); Blood Urea Nitrogen 22 mg/dL (8-23); Calcium 8.6 mg/dL (8.6-10.3); Carbon Dioxide 16 mEq/L (23-29); Chloride 112 mEq/L (98-107); Glucose 132 mg/dL (70-105); Osmolality,Calculated 285 (280-300); Phosphorous 4.2 mg/dL (2.7-4.5); Potassium 4.8 mEq/L (3.5-5.1); Sodium 135 mEq/L (136-145); eGFR For African Americans > 60 (> 60); eGFR For Non-African Americans > 60 (> 60)
[2017-11-09 04:23] LABS: ABG Base Excess -7 mEq/L (-2 to 3); ABG HCO3 17 mEq/L (21-27); ABG Oxygen Saturation 95 % (95-98); ABG PCO2 31 mmHg (35-45); ABG PH 7.36 pH Units (7.32-7.45); ABG PO2 76 mmHg (85-104); ABG TCO2 18 mEq/L (20-26); Blood Gas Modality VC; Blood Gas PEEP 5 cm H2O; Blood Gas Respiration Rate 14; Blood Gas VT 450 cc
[2017-11-09] MEDS: Insulin LISPRO 300 UNITS/3 ML VIAL SQ SCH ×4 (05:43→23:32)
[2017-11-09] MEDS: *HR* Heparin 5,000 UNIT/ML VIAL SQ SCH ×2 (05:46→17:04)
--- NOTE | 2017-11-09 08:01 | Pulmonology Progress Note ---
<Kvng Granda - Last Filed: 11/09/17 11:06> Date of Encounter: 11/09/17 Time of Encounter: 08:00 Assessment and Plan (1) Pneumonia Current Visit: Yes Status: Acute Chest x-ray with pleural effusion and prior opacity. Leukocytosis as well as increased sputum production. Sputum culture results demonstrating MRSA. Patient remains on vancomycin and cefepime. Peripheral blood cultures no growth. Qualifiers: Pneumonia type: due to unspecified organism Laterality: bilateral Lung location: unspecified part of lung Qualified Code(s): J18.9 - Pneumonia, unspecified organism (2) Cardiogenic shock Current Visit: Yes Status: Resolved Cardiogenic shock following PCI necessitating IABP as well as vasopressor support. Aortic balloon removed. Liberated from vasopressors. (3) STEMI (ST elevation myocardial infarction) Current Visit: Yes Status: Resolved EKG demonstrating anterior wall NH. Left heart catheterization 11/04/17 with PTCA/ELIO to proximal and mid LAD. Cardiology following. Continue dual antiplatelet therapy. Qualifiers: Involved coronary artery: LAD coronary artery Qualified Code(s): I21.02 - ST elevation (STEMI) myocardial infarction involving left anterior descending coronary artery (4) Acute encephalopathy Current Visit: No Status: Acute Patient currently not following commands. Precludes extubation until improvement in mental status. Plan to obtain CT head as well as EEG. 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 transplanted heart: [place] heart Associated angina: angina presence unspecified Qualified Code(s): I25.10 - Atherosclerotic heart disease of [place] coronary artery without angina pectoris (8) DVT prophylaxis Current Visit: No Status: Acute Heparin subcutaneous Subjective Principal diagnosis: STEMI Interval history: No acute events overnight. She was in A. fib RVR yesterday on Cardizem drip. Restarted on a low-dose of fentanyl overnight as she was gagging on the tube. She is currently not following commands. Precludes from extubation at the present time. Objective PUL Vital signs: Last Vital Signs Temp 98.0 F 11/09/17 03:27 Pulse 76 11/09/17 07:00 Resp 26 11/09/17 07:41 BP 135/57 11/09/17 07:41 Pulse Ox 97 11/09/17 07:41 General appearance: no acute distress, other (Intubated.) Eyes: nonicteric ENT: other (ET tube in place) Effort: other (Mechanically ventilated) Auscultation: bilateral: clear Cardiovascular: regular rate and rhythm Gastrointestinal: soft, non-distended Integumentary: normal Extremities: no cyanosis, no edema Musculoskeletal: no deformities other (Opens eyes spontaneously. Does not follow commands.) Ventilator Settings Ventilator Settings: Ventilator Settings, Last 8 Hours Ventilator Mode CPAP Ventilator Mode CPAP Ventilator Mode VC+ Ventilator Mode VC+ Ventilator Mode VC+ Ventilator Mode VC+ Ventilator Mode VC+ Ventilator Mode VC+ Ventilator Mode VC+ Ventilator Tidal Volume 450 Setting Ventilator Tidal Volume 450 Setting Ventilator Tidal Volume 450 Setting Ventilator Tidal Volume 450 Setting Ventilator Tidal Volume 450 Setting Ventilator Tidal Volume 450 Setting Ventilator Tidal Volume 450 Setting Ventilator Tidal Volume 450 Setting Ventilator Tidal Volume 450 Setting Ventilator Tidal Volume 450 Setting Ventilator Respiratory Rate 14 Setting Ventilator Respiratory Rate 14 Setting Ventilator Respiratory Rate 14 Setting Ventilator Respiratory Rate 14 Setting Ventilator Respiratory Rate 14 Setting Ventilator Respiratory Rate 14 Setting Ventilator Respiratory Rate 14 Setting Ventilator Respiratory Rate 14 Setting Ventilator Respiratory Rate 14 Setting Ventilator Respiratory Rate 14 Setting Ventilator Respiratory Rate 14 Setting Ventilator Respiratory Rate 14 Setting Actual Respiratory Rate 18 Actual Respiratory Rate 26 Actual Respiratory Rate 22 Actual Respiratory Rate 14 Actual Respiratory Rate 14 Actual Respiratory Rate 14 Actual Respiratory Rate 18 Actual Respiratory Rate 15 Actual Respiratory Rate 15 Actual Respiratory Rate 16 Actual Respiratory Rate 15 Actual Respiratory Rate 15 Positive End Expiratory 5 Pressure Positive End Expiratory 5 Pressure Positive End Expiratory 5 Pressure Positive End Expiratory 5 Pressure Positive End Expiratory 5 Pressure Positive End Expiratory 5 Pressure Positive End Expiratory 5 Pressure Positive End Expiratory 5 Pressure Positive End Expiratory 5 Pressure Positive End Expiratory 5 Pressure Positive End Expiratory 5 Pressure Positive End Expiratory 5 Pressure Positive End Expiratory 5 Pressure Peak Inspiratory Airway 11 Pressure Peak Inspiratory Airway 11 Pressure Peak Inspiratory Airway 11 Pressure Peak Inspiratory Airway 30 Pressure Peak Inspiratory Airway 15 Pressure Peak Inspiratory Airway 16 Pressure Peak Inspiratory Airway 15 Pressure Peak Inspiratory Airway 17 Pressure Peak Inspiratory Airway 19 Pressure Peak Inspiratory Airway 18 Pressure Peak Inspiratory Airway 18 Pressure Peak Inspiratory Airway 19 Pressure Results - Laboratory Findings CBC and BMP: 11/09/17 03:30 11/09/17 03:30 ABG ABG pH 7.36 pH Units (7.32-7.45) 11/09/17 04:19 ABG pCO2 31 mmHg (35-45) L 11/09/17 04:19 ABG pO2 76 mmHg (85-104) L 11/09/17 04:19 ABG O2 Saturation 95 % (95-98) 11/09/17 04:19 PT/INR, D-dimer PT 11.2 Seconds (9.4-12.1) 11/04/17 18:18 Abnormal lab findings: Abnormal lab results WBC 13.7 K/mcL (4.3-11.1) H 11/09/17 03:30 RBC 3.41 M/mcL (3.82-4.97) L 11/09/17 03:30 Hgb 10.5 g/dL (11.5-15.4) L 11/09/17 03:30 Hct 31.6 % (35.3-44.9) L 11/09/17 03:30 Neutrophils # 11.7 K/mcL (1.6-8.9) H 11/09/17 03:30 Lymphocytes # 0.4 K/mcL (0.6-4.6) L 11/09/17 03:30 Heparin Anti-Xa, Unfract 1.92 IU/mL (0.30-0.70) H* 11/04/17 22:40 ABG pCO2 31 mmHg (35-45) L 11/09/17 04:19 ABG pO2 76 mmHg (85-104) L 11/09/17 04:19 ABG HCO3 17 mEq/L (21-27) L 11/09/17 04:19 ABG Total CO2 18 mEq/L (20-26) L 11/09/17 04:19 ABG Base Excess -7 mEq/L (-2 to 3) L 11/09/17 04:19 VBG pH 7.30 pH Units (7.32-7.42) L 11/08/17 04:35 Sodium 135 mEq/L (136-145) L 11/09/17 03:30 Chloride 112 mEq/L (98-107) H 11/09/17 03:30 Carbon Dioxide 16 mEq/L (23-29) L 11/09/17 03:30 BUN/Creatinine Ratio 28 (6-26) H 11/09/17 03:30 Glucose 132 mg/dL (70-105) H 11/09/17 03:30 POC Glucose 139 mg/dL (70-99) H 11/08/17 23:26 Hemoglobin A1c 6.3 % (-5.6) H 11/05/17 03:30 Troponin I > 73.00 ng/mL (< 0.04) H* 11/05/17 03:30 - Microbiology Findings Microbiology Findings: Microbiology, Last 48 Hours 11/07/17 03:55 Sputum Culture - Final Sputum Methicillin Resistant S.aureus 11/05/17 15:13 Blood Culture - Preliminary Peripheral Venipuncture No growth. - Clinical Findings Intake & Output: Intake & Output 11/08/17 11/08/17 11/09/17 15:59 23:59 07:59 Intake Total 260 / 260 40 / 40 36 / 36 Output Total 325 / 325 350 / 350 150 / 150 Balance -65 / -65 -310 / -310 -114 / -114 Weight 68.9 kg - VTE Reasons for not Prescribing Prophylaxis: Not indicated-Anticoagulated or INR therapeutic Consult Discharge Plan - Plan Referrals: NONE,PCP [Primary Care Provider] - <Kimberly Sherwood - Last Filed: 11/09/17 22:16> Date of Encounter: 11/09/17 Assessment and Plan (1) Acute respiratory failure Current Visit: Yes Status: Acute Qualifiers: Respiratory failure complication: hypoxia Qualified Code(s): J96.01 - Acute respiratory failure with hypoxia (2) STEMI (ST elevation myocardial infarction) Current Visit: Yes Status: Acute Qualifiers: Involved coronary artery: LAD coronary artery Qualified Code(s): I21.02 - ST elevation (STEMI) myocardial infarction involving left anterior descending coronary artery (3) Cardiogenic shock Current Visit: Yes Status: Resolved (4) DVT prophylaxis Current Visit: No Status: Acute Objective PUL Vital signs: Last Vital Signs Temp 99.2 F 11/09/17 20:38 Pulse 85 11/09/17 18:00 Resp 22 11/09/17 19:31 BP 166/85 11/09/17 18:00 Pulse Ox 100 11/09/17 19:31 Results - Laboratory Findings CBC and BMP: 11/09/17 03:30 11/09/17 03:30 ABG ABG pH 7.36 pH Units (7.32-7.45) 11/09/17 04:19 ABG pCO2 31 mmHg (35-45) L 11/09/17 04:19 ABG pO2 76 mmHg (85-104) L 11/09/17 04:19 ABG O2 Saturation 95 % (95-98) 11/09/17 04:19 PT/INR, D-dimer PT 11.2 Seconds (9.4-12.1) 11/04/17 18:18 Abnormal lab findings: Abnormal lab results WBC 13.7 K/mcL (4.3-11.1) H 11/09/17 03:30 RBC 3.41 M/mcL (3.82-4.97) L 11/09/17 03:30 Hgb 10.5 g/dL (11.5-15.4) L 11/09/17 03:30 Hct 31.6 % (35.3-44.9) L 11/09/17 03:30 Neutrophils # 11.7 K/mcL (1.6-8.9) H 11/09/17 03:30 Lymphocytes # 0.4 K/mcL (0.6-4.6) L 11/09/17 03:30 Heparin Anti-Xa, Unfract 1.92 IU/mL (0.30-0.70) H* 11/04/17 22:40 ABG pCO2 31 mmHg (35-45) L 11/09/17 04:19 ABG pO2 76 mmHg (85-104) L 11/09/17 04:19 ABG HCO3 17 mEq/L (21-27) L 11/09/17 04:19 ABG Total CO2 18 mEq/L (20-26) L 11/09/17 04:19 ABG Base Excess -7 mEq/L (-2 to 3) L 11/09/17 04:19 VBG pH 7.30 pH Units (7.32-7.42) L 11/08/17 04:35 Sodium 135 mEq/L (136-145) L 11/09/17 03:30 Chloride 112 mEq/L (98-107) H 11/09/17 03:30 Carbon Dioxide 16 mEq/L (23-29) L 11/09/17 03:30 BUN/Creatinine Ratio 28 (6-26) H 11/09/17 03:30 Glucose 132 mg/dL (70-105) H 11/09/17 03:30 POC Glucose 139 mg/dL (70-99) H 11/08/17 23:26 Hemoglobin A1c 6.3 % (-5.6) H 11/05/17 03:30 Troponin I > 73.00 ng/mL (< 0.04) H* 11/05/17 03:30 - Microbiology Findings Microbiology Findings: Microbiology, Last 48 Hours 11/07/17 03:55 Sputum Culture - Final Sputum Methicillin Resistant S.aureus - Clinical Findings Intake & Output: Intake & Output 11/09/17 11/09/17 11/09/17 07:59 15:59 23:59 Intake Total 36 / 36 270 / 270 0 / 0 Output Total 150 / 150 400 / 400 1400 / 1400 Balance -114 / -114 -130 / -130 -1400 / -1400 - Attending Attestation - Attending Attestation I saw and evaluated this patient and my medical decision-making was reviewed with the Resident Physician. I agree with the documented findings, disposition and treatment plan as described except to the extent set forth below. We independently had [id number] contact with the patient Patient seen and examined at bedside Labs, radiology, chart personally reviewed. Management was reviewed during multidisciplinary critical care rounds. 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 CT head was not remarkable . EEG shows signs of encephalopathy Pulm: Acute hypoxic respiratory failure secondary to hydrostatic pulmonary edema due to cardiogenic shock shows copious thick yellow secretion gram stain with gram positive cocci which is growing MRSA , secretions is lot less patient is needing minimal ventilatory support . 5/2 after ensure adequate cough with no leak patient was extubated to BIPAP Cards:Cardiogenic shock reversed off vasopressors, managment according to cardiology FEN-GI: To follow nutrition recs Renal: Labs reviewed ID: Sputum culture is growing MRSA to continue Vancomycin Heme/Onc:Labs reviewed Endo: Glucose Monitored Integ/MSK: Skin Care per routine ICU Nursing Protocol to prevent ulcers. Lines: All lines examined without evidence of infection : Dispo: High chance of re intuabtion CODE:Full Code
[2017-11-09] MEDS: Aspirin 81 MG TAB.CHEW PO SCH (08:46)
[2017-11-09] MEDS: Chlorhexidine Rinse 15 ML MOUTHWASH MM SCH ×2 (08:46→21:30)
[2017-11-09] MEDS: Pantoprazole 40 MG VIAL IVP SCH (08:46)
[2017-11-09] MEDS: *HR* Ticagrelor 90 MG TABLET PO SCH ×2 (08:46→20:37)
--- NOTE | 2017-11-09 09:31 | Cardiology Progress Note ---
Date of Encounter: 11/09/17 Time of Encounter: 09:30 Assessment and Plan (1) STEMI (ST elevation myocardial infarction) Current Visit: Yes Status: Acute Per cardiology: Presented with Anterior STEMI with peak troponin greater than 73. Underwent emergent PCI to the LAD. Due to ECG changes, taken back to catheterization lab. Balloon pump placed, clot burden noted in the LAD. Patient placed on ReoPro, now off. Heparin and balloon pump have been discontinued. Patient had drug- eluting stent to proximal LAD 90% lesions and drug-eluting stent to mid LAD 100 % lesion. Also, showed left main 30%, proximal circumflex 40%, proximal OM1 70% , distal OM1 90%, patent distal RCA stent from previous procedure, proximal RCA 40%, and mid RCA 50% lesions. Echo showed EF preserved 55%. Now on aspirin and Brilinta-- continue dual antiplatelet therapy uninterrupted for at least one year. H&H stable. On statin. Now off pressors-- recommend addition of beta william lopressor 12.5mg PO BID (had A. fib yesterday and currently systolic blood pressure in the 140s to 150s). Qualifiers: Involved coronary artery: LAD coronary artery Qualified Code(s): I21.02 - ST elevation (STEMI) myocardial infarction involving left anterior descending coronary artery (2) Pneumonia Current Visit: Yes Status: Acute Per Cardiology: Management per pulmonology. Remains intubated. On antibiotics. Qualifiers: Pneumonia type: due to unspecified organism Laterality: bilateral Lung location: unspecified part of lung Qualified Code(s): J18.9 - Pneumonia, unspecified organism Discussion w patient/family: Thank you for involving us in the care of your patient. Please call with any questions. Subjective Principal diagnosis: STEMI Interval history: Currently undergoing EEG. Remains intubated. Not currently on pressors or IV drips. Balloon pump remains out. No family presently at bedside. Objective Vital Signs, Last 4 Hours Temp Pulse Resp BP Pulse Ox 11/09/17 09:00 81 23 149/68 97 11/09/17 08:15 98.5 F 11/09/17 08:00 76 11/09/17 07:41 26 135/57 97 11/09/17 07:00 76 26 129/54 97 11/09/17 06:00 78 22 134/55 97 11/09/17 05:41 14 122/49 99 Cardiac: Reg Rate and Rhythm, Normal S1 and S2, No Murmur Lungs: Normal Breath Sounds, No Wheeze, Rales, Rhonchi, Other (intubated) Results 11/09/17 03:30 11/09/17 03:30 Lab Results Laboratory Tests 11/05/17 11/09/17 11/09/17 03:30 03:30 03:30 Hgb 10.5 L Hct 31.6 L Creatinine 0.80 Est GFR (Non-Af Amer) > 60 Troponin I > 73.00 H* TSH 0.581 ITS Impressions Chest X-Ray 11/04/17 22:46 IMPRESSION: 1. Well-positioned NG and ET tubes. 2. Coarse lung markings suggestive of emphysema or chronic interstitial lung disease. D/ / 11/05/2017 07:01:09 Erick Allan MD / shereen Interpreting Provider: Erick Allan MD Chest X-Ray 11/05/17 09:13 IMPRESSION: 1. The IABP radiopaque tip has advanced since the prior exam and now lies approximately 0.7 cm distal to the superior margin of the aortic arch (ideal position is approximately 2 cm). 2. The enteric tube has been repositioned with the tip now extending into the fundus and a loop extending into the mid gastric body. The findings were sent to the Radiology Results Communication Center at 9:41 am on 11/05/2017to be communicated to a licensed caregiver. D/ / 11/05/2017 09:56:54 Danny Tamez MD / shereen Interpreting Provider: Danny Tamez MD Chest X-Ray 11/05/17 16:07 IMPRESSION: 1. IABP tip overlies the upper portion of the aortic knob. If this is pulled back 17 mm, it would then be about 20 mm from the top of the aortic arch. 2. Endotracheal tube and NG tube positioning are unremarkable. 3. Cardiomegaly. 4. Calcific atherosclerotic disease aorta. 5. Senescent pulmonary changes. D/ / Nuno Knox / Nuno Knox Interpreting Provider: Nuno Knox Echocardiogram 11/05/17 22:40 Impressions: LVEF 55%. Mild concentric left ventricular hypertrophy. Mild left ventricular diastolic dysfunction. Mild segmental left ventricular systolic dysfunction, but overall normal LV function. Normal right ventricular structure and function. No evidence of pulmonary hypertension. Mildly increased gradients across the aortic valve suggestive of a mild obstruction. Left Ventricular Wall Motion: Rest Echo Findings The apical septal, mid inferior septal and mid anterior septal morales were hypokinetic. All other wall segments showed normal motion. Findings: Study Quality * Technically adequate exam. ECG Findings * Normal sinus rhythm. Left Ventricle * LVEF 55%. * Normal LV chamber size. * Mild concentric left ventricular hypertrophy. * Mild left ventricular diastolic dysfunction. * Mild segmental left ventricular systolic dysfunction with overall normal LV function. Right Ventricle * Normal right ventricular structure and function. Left Atrium * Moderately dilated left atrium. Right Atrium * Normal right atrial size. Aortic Valve * Aortic valve not well visualized. * No aortic regurgitation. * Mildly increased gradients acrossly the aortic valve suggestive of a mild obstruction. Mitral Valve * Mild mitral annular calcification. * No mitral regurgitation. * No mitral stenosis. Tricuspid Valve * Normal tricuspid valve structure and function. * Trace tricuspid regurgitation. * No evidence of pulmonary hypertension. Pulmonic Valve * Pulmonic valve is not well visualized. * No pulmonic regurgitation. Aorta * Normally sized aortic root. Pericardium * The pericardium appears normal. IVC * Normal IVC dimensions and inspiratory collapse. Pulmonary Artery * Normal visualized portions of the main pulmonary artery. Chest X-Ray 11/05/17 22:45 IMPRESSION: 1. Stable position of support tubes. 2. Findings suggesting COPD. 3. No acute cardiopulmonary process evident. D/ / 11/05/2017 08:22:58 Ernesto Titus MD / shereen Interpreting Provider: Ernesto Titus MD Chest X-Ray 11/06/17 15:02 IMPRESSION: IABP tip projects over the descending thoracic aorta, approximately 2.5 cm below the level of the aortic arch. D/ / 11/06/2017 15:25:01 Cyrus Manuel MD / bcarter Interpreting Provider: Cyrus Manuel MD KUB X-Ray 11/06/17 15:54 IMPRESSION: Enteric tube in place as above. Minimal left basilar airspace disease, likely atelectasis. D/ / Marcia Teran Cha, MD / Marcia Teran Cha, MD Interpreting Provider: Marcia Teran Cha, MD Chest X-Ray 11/06/17 16:39 IMPRESSION: IABP tip now projects over the inferior most aspect of the aortic arch. Likely small left effusion and atelectasis. D/ / Giovani Smith MD / Giovani Smith MD Interpreting Provider: Giovani Simth MD Chest X-Ray 11/07/17 04:44 IMPRESSION: Left pleural effusion with bibasilar atelectasis, left greater than right. D/ / 11/07/2017 08:17:38 oBbo Mendoza MD / hi Interpreting Provider: Bobo Mendoza MD Active Medications Albuterol/Ipratropium (Duoneb) 3 ml IH [id number] JORGE Stop: 05/09/18 04:16 Last Admin: 11/09/17 11:45 Dose: 3 ml Aspirin (Aspirin) 81 mg PO DAILY JORGE Stop: 05/07/18 09:01 Last Admin: 11/09/17 08:46 Dose: 81 mg Atorvastatin Calcium (Lipitor) 80 mg PO HS JORGE Stop: 05/07/18 21:01 Last Admin: 11/08/17 20:04 Dose: 80 mg Chlorhexidine Gluconate (Chlorhexidine Rinse) 15 ml MM BID JORGE Stop: 05/07/18 14:01 Last Admin: 11/09/17 08:46 Dose: 15 ml Dextrose/Water (Dextrose 50% (Syg)) 25 ml IVP AD PRN PRN Reason: Hypoglycemia Stop: 05/06/18 23:03 Glucagon (Glucagen) 1 mg IM ONCE PRN PRN Reason: Hypoglycemia Stop: 05/06/18 23:03 Glucose (Gluctose) 15 gm PO ONCE PRN PRN Reason: Hypoglycemia Stop: 05/06/18 23:00 Glucose (Gluctose) 30 gm PO ONCE PRN PRN Reason: Hypoglycemia Stop: 05/06/18 23:00 Heparin Sodium (Porcine) (Heparin) 5,000 unit SQ Q12HCO JORGE Stop: 05/10/18 18:01 Last Admin: 11/09/17 05:46 Dose: 5,000 unit Fentanyl Citrate 1,000 mcg/ (Sodium Chloride) 100 mls @ 5 mls/hr IVC CONT JORGE; 50 MCG/HR PRN Reason: Protocol Stop: 05/06/18 20:46 Last Titration: 11/09/17 05:40 Dose: 0 mcg/hr, 0 mls/hr Midazolam HCl 50 mg/ Sodium (Chloride) 100 mls @ 4 mls/hr IVC CONT JORGE; 2 MG/HR PRN Reason: Protocol Stop: 05/06/18 20:46 Last Titration: 11/07/17 09:00 Dose: 0 mg/hr, 0 mls/hr Norepinephrine Bitartrate 4 mg (/ Dextrose) 254 mls @ 30.48 mls/hr IVC CONT JORGE ; 8 MCG/MIN PRN Reason: Protocol Stop: 05/06/18 23:01 Last Admin: 11/08/17 22:17 Dose: Not Given Dextrose (Dextrose 5%) 1,000 mls @ 100 mls/hr IVC .Q10H PRN PRN Reason: HYPOGLYCEMIA Stop: 05/06/18 23:00 Potassium Chloride (Potassium Chloride 20 Meq/100 Ml) 40 meq in 200 mls @ 100 mls/hr IVPB Q1H PRN PRN Reason: POTASSIUM 2.8 Stop: 05/07/18 10:34 Last Admin: 11/08/17 15:23 Dose: 100 mls/hr Magnesium Sulfate (Magnesium Sulfate Premix 2gm/50ml) 2 gm in 50 mls @ 50 mls/ hr IVPB Q5H PRN PRN Reason: Magnesium less than 2.4 Stop: 05/07/18 13:01 Potassium Chloride (Potassium Chloride 20 Meq/100 Ml) 40 meq in 200 mls @ 100 mls/hr IVPB Q1H PRN PRN Reason: ELECTROLYTE PROTOCOL Stop: 05/07/18 12:59 Last Infusion: 11/08/17 07:10 Dose: Infused Cefepime HCl 1,000 mg/ Sterile (Water) 10 mls @ 150 mls/hr IVPB Q12H [facility] Stop: 05/09/18 12:01 Last Admin: 11/09/17 12:02 Dose: 300 mls/hr Diltiazem HCl 125 mg/ Sodium (Chloride) 125 mls @ 5 mls/hr IVC .Q24H JOGRE; 5 MG/ HR PRN Reason: Protocol Stop: 05/10/18 14:31 Last Titration: 11/08/17 22:18 Dose: 0 mg/hr, 0 mls/hr Potassium Phosphate 44 meq/ (Sodium Chloride) 260 mls @ 40 mls/hr IVPB Q10H PRN PRN Reason: Phosphate less than 3 Stop: 05/10/18 19:24 Last Admin: 11/08/17 20:04 Dose: 40 mls/hr Vancomycin HCl 750 mg/ Sodium (Chloride) 250 mls @ 250 mls/hr IVPB Q12H [facility] Stop: 05/11/18 23:01 Insulin Human Lispro (Humalog) 0 units SQ Q6HR JORGE PRN Reason: Protocol Stop: 05/07/18 00:01 Last Admin: 11/09/17 12:02 Dose: Not Given Pantoprazole Sodium (Protonix) 40 mg IVP DAILY [facility] Stop: 05/07/18 14:01 Last Admin: 11/09/17 08:46 Dose: 40 mg Ticagrelor (Brilinta) 90 mg PO BID [facility] Stop: 05/08/18 21:01 Last Admin: 11/09/17 08:46 Dose: 90 mg - Imaging and Cardiology Echo: report reviewed Cardiac cath: report reviewed - EKG Interpretation EKG results cardiology: other (Telemetry shows A. fib with RVR yesterday afternoon, currently sinus rhythm with average heart rate 82 the past 24 hours.) - VTE Reasons for not Prescribing Prophylaxis: Not indicated-Anticoagulated or INR therapeutic Consult Discharge Plan - Plan Referrals: NONE,PCP [Primary Care Provider] -
[2017-11-09] MEDS: Cefepime HCl 1,000 MG in Water for inj. (sterile) 20 ML 10 ML IVPB SCH ×2 (12:02→23:34)
--- NOTE | 2017-11-09 12:36 | EEG/EMG/Oth Biometrics Report ---
EEG Procedure Report Date of procedure: 11/09/17 EEG Procedure: Routine EEG Procedure Note: Report: This EEG was acquired with standard international 10-20 electrode placement system with EKG recording. The background activity during this EEG was characterized by presence of alpha, theta and delta activity with best frequency up to 8 Hz. The background activity was slightly slower on the left side. The background activity was reactive to eye openings and movements. Sleep stages were not identified during this tracing. There are no electrographic seizures identified during this tracing. There are no epileptiform discharged noted during this tracing. Background activity milder slower on the left hemisphere. Photic stimulation produced no abnormalities. HV not performed during this study. EKG tracing showed no significant cardiac dysarrhythmia. Impression: This is an abnormal EEG due to presence of mild diffuse background slowing, more to the left side. Clinical Correlation: This EEG is consistent with mild diffuse cerebral dysfunction that can be seen in patients with mild encephalopathy, metabolic/toxic, inflammatory, electrolyte derangement or anoxic/ischemic. The background slowing appears more on the left hemisphere, please correlate with imaging studies. No electrographic seizures seen. Clinical correlation suggested.
[2017-11-09] MEDS ORDERED: Furosemide 40 MG/4 ML VIAL IVP ONE ×2 (13:46→22:09)
[2017-11-09] MEDS ORDERED: *HR* Metoprolol 5 MG/5 ML VIAL IVP ONE (14:21)
--- NOTE | 2017-11-09 16:22 | Electrocardiograph Report ---
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
[2017-11-09] MEDS ORDERED: OXYCODONE Oral CONC 10 MG/0.5 ML ORAL.SYG SL PRN (17:00)
[2017-11-09] MEDS: *HR* Metoprolol 5 MG/5 ML VIAL IVP SCH ×2 (17:04→23:23)
[2017-11-09] MEDS: Norepinephrine 4 MG in D5% in Water 250 ML IVC SCH (20:37)
[2017-11-10] MEDS: Ipratropium/Albuterol Neb 3 ML IH SCH ×6 (03:21→23:00)
[2017-11-10 03:57] LABS: Basophils # 0.1 K/mcL (0.0-0.2); Basophils % 0.3 %; Eosinophils # 0.2 K/mcL (0.0-0.6); Eosinophils % 1.2 %; Hematocrit 32.9 % (35.3-44.9); Hemoglobin 10.7 g/dL (11.5-15.4); Immature Granulocytes % 0.5 % (0-4); Lymphocytes # 0.6 K/mcL (0.6-4.6); Lymphocytes % 3.4 %; Mean Corpuscular HGB Conc 32.5 g/dL (31.6-35.5); Mean Corpuscular Hemoglobin 29.6 pg (28.0-33.3); Mean Corpuscular Volume 90.9 fL (83.0-100.0); Mean Platelet Volume 9.9 fL (9.4-12.4); Monocytes # 1.8 K/mcL (0.0-1.3); Monocytes % 10.3 %; Neutrophils # 14.9 K/mcL (1.6-8.9); Platelet Count 393 K/mcL (140-400); Red Blood Count 3.62 M/mcL (3.82-4.97); Red Cell Distribution Width 13.7 % (11.5-14.5); Segmented Neutrophils % 84.3 %
[2017-11-10 04:33] LABS: BUN/Creatinine Ratio 25 (6-26); Blood Urea Nitrogen 21 mg/dL (8-23); Calcium 8.4 mg/dL (8.6-10.3); Carbon Dioxide 22 mEq/L (23-29); Chloride 109 mEq/L (98-107); Glucose 85 mg/dL (70-105); Osmolality,Calculated 296 (280-300); Potassium 3.3 mEq/L (3.5-5.1); Sodium 142 mEq/L (136-145); eGFR For African Americans > 60 (> 60); eGFR For Non-African Americans > 60 (> 60)
[2017-11-10] MEDS: Insulin LISPRO 300 UNITS/3 ML VIAL SQ SCH ×3 (05:43→17:52)
[2017-11-10] MEDS: *HR* Metoprolol 5 MG/5 ML VIAL IVP SCH ×3 (06:20→17:52)
[2017-11-10] MEDS: Potassium Chloride 40 MEQ/200 ML BAG IVPB PRN ×2 (06:22→18:29)
[2017-11-10] MEDS: *HR* Heparin 5,000 UNIT/ML VIAL SQ SCH (06:23)
[2017-11-10] MEDS: *HR* Ticagrelor 90 MG TABLET PO SCH ×2 (08:27→18:35)
[2017-11-10] MEDS: Aspirin 81 MG TAB.CHEW PO SCH (08:27)
--- NOTE | 2017-11-10 08:37 | Pulmonology Progress Note ---
Addendum entered and electronically signed by Zachariah Lezama DO 11/10/17 16: 44: Addendum to A/P Suspected CVA As patient has become more alert, she has responded to commands There seems to be no strength or sensation in the right upper extremity, although the patient does move her right leg I spoke with the patient's about ordering an MRI. I informed him of the benefits and negatives of getting one Ultimately, the patient's treatment would be unchanged by the finding of a cerebral infarct The determined that he would not like for the patient to have an MRI Original Note: <Zachariah Lezama - Last Filed: 11/10/17 13:45> Date of Encounter: 11/10/17 Time of Encounter: 08:00 Assessment and Plan (1) Pneumonia Current Visit: Yes Status: Acute Chest x-ray with pleural effusion and prior opacity. Leukocytosis as well as increased sputum production. Sputum culture results demonstrating MRSA. Peripheral blood cultures no growth. 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 (3) Acute respiratory failure Current Visit: Yes Status: Acute Patient Acute hypoxic respiratory failure secondary to hydrostatic pulmonary edema secondary to cardiogenic shock due to underlying STEMI The patient has been successfully liberated from ventilator, requires intermittent BiPAP Sputum cultures are positive for MRSA We started antibiotics today, continue to monitor Add duonebs for wheezing and rhonchi Qualifiers: Respiratory failure complication: hypoxia Qualified Code(s): J96.01 - Acute respiratory failure with hypoxia (4) Cardiogenic shock Current Visit: Yes Status: Resolved Cardiogenic shock following PCI necessitating IABP as well as vasopressor support. Aortic balloon removed. Liberated from vasopressors. (5) STEMI (ST elevation myocardial infarction) Current Visit: Yes Status: Acute Patient has instant thrombosis after PCI developed dissection developed a large anterior wall DE with cardiogenic shock Managment according to cardiology Continued management per cardiology Will need to insert NG tube for Brillinta Qualifiers: Involved coronary artery: LAD coronary artery Qualified Code(s): I21.02 - ST elevation (STEMI) myocardial infarction involving left anterior descending coronary artery (6) Goals of care, counseling/discussion Current Visit: Yes Status: Acute We had a long discussion with the patient's about goals of care. He seems to have a realistic understanding of the patient's poor prognosis, and likely need for aggressive lifesaving measures if the goal to sustain life is maintained. We discussed CODE status chnge, and he agrees to change CODE status to DNR-cca-DNI for now, with likely progression to DNR-cc later. We will consult palliative for further discussion. (7) DVT prophylaxis Current Visit: No Status: Acute Patient is on heparin drip Subjective Principal diagnosis: STEMI Interval history: The patient is resting comfortably in bed at time of examination. She is extubated however she remains altered and does not respond directly to questions. There are no acute complaints this morning. We did speak with the patient's , who says that he would like the patient to be comfortable, and does not believe that she would want extreme measures. Objective PUL Vital signs: Last Vital Signs Temp 98.0 F 11/10/17 07:54 Pulse 77 11/10/17 08:00 Resp 28 11/10/17 08:05 BP 134/56 11/10/17 08:00 Pulse Ox 100 11/10/17 08:05 Gen: Vitals noted. Appears non-toxic HEENT: Normocephalic, atraumatic Neck: Supple. No adenopathy. Cardiac: irregularly irregular, no murmur, +S1/S2 Pulmonary: CTAB, significantly improved from prior exam Abdomen: soft, nontender, BS noted, no guarding Back: Nontender throughout. MSK: ROM intact, no joint swelling noted Extremities: no BLE edema, nontender calf, no cyanosis or clubbing Neuro: altered status, alert by not oriented or verbal. No focal neurological deficits Results - Laboratory Findings CBC and BMP: 11/10/17 10:42 11/10/17 03:31 ABG ABG pH 7.36 pH Units (7.32-7.45) 11/09/17 04:19 ABG pCO2 31 mmHg (35-45) L 11/09/17 04:19 ABG pO2 76 mmHg (85-104) L 11/09/17 04:19 ABG O2 Saturation 95 % (95-98) 11/09/17 04:19 PT/INR, D-dimer PT 11.2 Seconds (9.4-12.1) 11/04/17 18:18 Abnormal lab findings: Abnormal lab results WBC 17.7 K/mcL (4.3-11.1) H 11/10/17 03:31 RBC 3.62 M/mcL (3.82-4.97) L 11/10/17 03:31 Hgb 10.7 g/dL (11.5-15.4) L 11/10/17 03:31 Hct 32.9 % (35.3-44.9) L 11/10/17 03:31 Neutrophils # 14.9 K/mcL (1.6-8.9) H 11/10/17 03:31 Monocytes # 1.8 K/mcL (0.0-1.3) H 11/10/17 03:31 Heparin Anti-Xa, Unfract 1.92 IU/mL (0.30-0.70) H* 11/04/17 22:40 ABG pCO2 31 mmHg (35-45) L 11/09/17 04:19 ABG pO2 76 mmHg (85-104) L 11/09/17 04:19 ABG HCO3 17 mEq/L (21-27) L 11/09/17 04:19 ABG Total CO2 18 mEq/L (20-26) L 11/09/17 04:19 ABG Base Excess -7 mEq/L (-2 to 3) L 11/09/17 04:19 VBG pH 7.30 pH Units (7.32-7.42) L 11/08/17 04:35 Potassium 3.3 mEq/L (3.5-5.1) L 11/10/17 03:31 Chloride 109 mEq/L (98-107) H 11/10/17 03:31 Carbon Dioxide 22 mEq/L (23-29) L 11/10/17 03:31 Hemoglobin A1c 6.3 % (-5.6) H 11/05/17 03:30 Calcium 8.4 mg/dL (8.6-10.3) L 11/10/17 03:31 Troponin I > 73.00 ng/mL (< 0.04) H* 11/05/17 03:30 - Microbiology Findings Microbiology Findings: Microbiology, Last 48 Hours 11/07/17 03:55 Sputum Culture - Final Sputum Methicillin Resistant S.aureus - Clinical Findings Intake & Output: Intake & Output 11/09/17 11/10/17 11/10/17 23:59 07:59 15:59 Intake Total 0 / 0 53 / 53 270 / 270 Output Total 1400 / 1400 3000 / 3000 Balance -1400 / -1400 -2947 / -2947 270 / 270 Weight 62.4 kg - VTE Reasons for not Prescribing Prophylaxis: Not indicated-Anticoagulated or INR therapeutic Consult Discharge Plan - Plan Referrals: NONE,PCP [Primary Care Provider] - <Kimberly Sherwood - Last Filed: 11/10/17 22:25> Date of Encounter: 11/10/17 Assessment and Plan (1) Acute respiratory failure Current Visit: Yes Status: Acute Qualifiers: Respiratory failure complication: hypoxia Qualified Code(s): J96.01 - Acute respiratory failure with hypoxia (2) STEMI (ST elevation myocardial infarction) Current Visit: Yes Status: Acute Qualifiers: Involved coronary artery: LAD coronary artery Qualified Code(s): I21.02 - ST elevation (STEMI) myocardial infarction involving left anterior descending coronary artery (3) Cardiogenic shock Current Visit: Yes Status: Resolved (4) DVT prophylaxis Current Visit: No Status: Acute Objective PUL Vital signs: Last Vital Signs Temp 97.9 F 11/10/17 20:39 Pulse 107 11/10/17 21:00 Resp 20 11/10/17 21:00 BP 113/73 11/10/17 21:00 Pulse Ox 94 11/10/17 21:00 Results - Laboratory Findings CBC and BMP: 11/10/17 10:42 11/10/17 17:50 ABG ABG pH 7.36 pH Units (7.32-7.45) 11/09/17 04:19 ABG pCO2 31 mmHg (35-45) L 11/09/17 04:19 ABG pO2 76 mmHg (85-104) L 11/09/17 04:19 ABG O2 Saturation 95 % (95-98) 11/09/17 04:19 PT/INR, D-dimer PT 13.4 Seconds (9.4-12.1) H 11/10/17 10:42 Abnormal lab findings: Abnormal lab results WBC 15.7 K/mcL (4.3-11.1) H 11/10/17 10:42 RBC 3.43 M/mcL (3.82-4.97) L 11/10/17 10:42 Hgb 10.3 g/dL (11.5-15.4) L 11/10/17 10:42 Hct 30.9 % (35.3-44.9) L 11/10/17 10:42 Plt Count 405 K/mcL (140-400) H 11/10/17 10:42 Neutrophils # 14.9 K/mcL (1.6-8.9) H 11/10/17 03:31 Monocytes # 1.8 K/mcL (0.0-1.3) H 11/10/17 03:31 PT 13.4 Seconds (9.4-12.1) H 11/10/17 10:42 APTT 43.6 Seconds (26.0-36.0) H D 11/10/17 17:50 Heparin Anti-Xa, Unfract 1.92 IU/mL (0.30-0.70) H* 11/04/17 22:40 ABG pCO2 31 mmHg (35-45) L 11/09/17 04:19 ABG pO2 76 mmHg (85-104) L 11/09/17 04:19 ABG HCO3 17 mEq/L (21-27) L 11/09/17 04:19 ABG Total CO2 18 mEq/L (20-26) L 11/09/17 04:19 ABG Base Excess -7 mEq/L (-2 to 3) L 11/09/17 04:19 VBG pH 7.30 pH Units (7.32-7.42) L 11/08/17 04:35 Chloride 109 mEq/L (98-107) H 11/10/17 03:31 Carbon Dioxide 22 mEq/L (23-29) L 11/10/17 03:31 Hemoglobin A1c 6.3 % (-5.6) H 11/05/17 03:30 Calcium 8.4 mg/dL (8.6-10.3) L 11/10/17 03:31 Troponin I > 73.00 ng/mL (< 0.04) H* 11/05/17 03:30 Procalcitonin 0.56 ng/mL (<=0.10) H 11/07/17 04:50 - Microbiology Findings Microbiology Findings: Microbiology, Last 48 Hours 11/07/17 03:55 Sputum Culture - Final Sputum Methicillin Resistant S.aureus - Clinical Findings Intake & Output: Intake & Output 11/10/17 11/10/17 11/10/17 07:59 15:59 23:59 Intake Total 53 / 53 670 / 670 543 / 543 Output Total 3000 / 3000 250 / 250 325 / 325 Balance -2947 / -2947 420 / 420 218 / 218 Weight 62.4 kg - Attending Attestation - Attending Attestation I saw and evaluated this patient and my medical decision-making was reviewed with the Resident Physician. I agree with the documented findings, disposition and treatment plan as described except to the extent set forth below. We independently had [id number]-[id number] contact with the patient Patient seen and examined at bedside Labs, radiology, chart personally reviewed. Management was reviewed during multidisciplinary critical care rounds. ENVIRONMENTAL MANAGEMENT SPECIALIST:Patient is opening her eyes following commands , CT head unremarkable , EEG shows encephalopathy , patient is not moving his right upper extremity , patient declined further investigation like MRI to look for any developing infarct . Pulm: Acute hypoxic respiratory failure secondary to hydrostatic pulmonary edema due to cardiogenic shock shows copious thick yellow secretion gram stain with gram positive cocci which is growing MRSA , secretions is lot less patient is needing minimal ventilatory support . 5/3 after ensure adequate cough with no leak patient was extubated to BIPAP 5 /4 Patient doing well on Nasal cannula acceptable oxygenation and ventilation . Cards:Cardiogenic shock reversed off vasopressors, managment according to cardiology . To continue DAPD for ELIO in LAD FEN-GI: To follow nutrition recs, patient got NG access Renal: Labs reviewed ID: Sputum culture is growing MRSA to continue Vancomycin Heme/Onc:Labs reviewed Endo: Glucose Monitored Integ/MSK: Skin Care per routine ICU Nursing Protocol to prevent ulcers. Lines: All lines examined without evidence of infection : Dispo: Will transfer to step down tomorrow CODE:According to patient wishes changed to code status to DNRA -DNI
[2017-11-10] MEDS: Pantoprazole 40 MG VIAL IVP SCH (09:08)
[2017-11-10] MEDS: Chlorhexidine Rinse 15 ML MOUTHWASH MM SCH (09:08)
--- NOTE | 2017-11-10 10:03 | Cardiology Progress Note ---
Date of Encounter: 11/10/17 Time of Encounter: 08:00 Assessment and Plan (1) STEMI (ST elevation myocardial infarction) Current Visit: Yes Status: Acute Per cardiology: S/p Anterior STEMI with peak troponin greater than 73. Underwent emergent PCI to the LAD. Due to ECG changes post [facility] patient was taken back to catheterization lab. Clot burden noted in the LAD and was placed on ReoPro and IABP. Initially intubated for respiratory distress. Patient taken off IABP and reapro. No extubated on continuois bipap. [facility] reviewed- drug-eluting stent to proximal LAD 90% lesions and drug-eluting stent to mid LAD 100% lesion. Also, showed left main 30%, proximal circumflex 40%, proximal OM1 70%, distal OM1 90%, patent distal RCA stent from previous procedure, proximal RCA 40%, and mid RCA 50% lesions. TTE- 55%. Mild LVH. Mildly increased gradients across aortic valve suggests mild obstruction. Now on aspirin and Brilinta-- continue dual anti-platelet therapy uninterrupted for at least one year. Discussed with ICU team, patient is not able to swallow. NG tube may need place as patient cannot miss DAPT. Continue statin and beta-william. Qualifiers: Involved coronary artery: LAD coronary artery Qualified Code(s): I21.02 - ST elevation (STEMI) myocardial infarction involving left anterior descending coronary artery (2) Paroxysmal atrial fibrillation Current Visit: Yes Status: Acute PAF seen during stay. No previous diagnosis known. Currently NSR. Continue BB. CHADS VASc= 6, recommend starting heparin gtt. Once able to take oral start oral AC. (3) Acute encephalopathy Current Visit: No Status: Acute Mild encephalopathy on EEG. CT head negative for acute changes. Consider neuro consult for eval and recommendations. Patient unable to follow commands. Discussion w patient/family: The assessment and plan as outlined above was discussed with the patient and/or family members who expressed understanding and agreement. All questions were answered. Thank you for involving us in the care of your patient. Please call with any questions. Subjective Principal diagnosis: STEMI Interval history: Ms. Jose was extubated yesterday. Continues to have decreases responsiveness. Unable to perform hand grasps or move extremities on my exam. Currently on bipap. Objective Vital Signs, Last 4 Hours Temp Pulse Resp BP Pulse Ox 11/10/17 09:00 74 19 120/56 100 05/04/18 08:05 28 100 11/10/17 08:00 77 24 134/56 100 11/10/17 07:54 98.0 F 11/10/17 07:00 77 28 132/58 100 General: No Apparent Distress HEENT: Atraumatic, Normocephaly, Mucus Membranes Moist Neck: No JVD, Normal carotid pulses Cardiac: Reg Rate and Rhythm, Normal S1 and S2, No Murmur Lungs: Normal Breath Sounds, No Wheeze, Rales, Rhonchi Neuro: Other (Does not follow commands. Shakes head when asked questions. ) Abdomen: Soft, Non-Tender Skin: No rashes noted on visualized skin Musculoskeletal: No Chest Wall Tenderness Extremities: No Clubbing, No Cyanosis, No Edema, Normal Pulses Results 11/10/17 03:31 11/10/17 03:31 Lab Results 11/10/17 11/10/17 03:31 03:31 WBC 17.7 H Hgb 10.7 L Hct 32.9 L Plt Count 393 D Sodium 142 Potassium 3.3 L Chloride 109 H Carbon Dioxide 22 L BUN 21 Creatinine 0.85 Glucose 85 Calcium 8.4 L - Imaging and Cardiology Echo: report reviewed Cardiac cath: report reviewed - EKG Interpretation EKG results cardiology: personally reviewed - VTE Reasons for not Prescribing Prophylaxis: Not indicated-Anticoagulated or INR therapeutic Consult Discharge Plan - Plan Referrals: NONE,PCP [Primary Care Provider] -
[2017-11-10] MEDS ORDERED: *HR* Heparin 5,000 UNIT/ML VIAL IVP PRN ×2 (10:42)
[2017-11-10] MEDS: Heparin 25,000 UNIT/500 ML D5W 25,000 UNIT/500 ML BAG IVC SCH (12:08)
[2017-11-10 12:11] LABS: Hematocrit 30.9 % (35.3-44.9); Hemoglobin 10.3 g/dL (11.5-15.4); Mean Corpuscular HGB Conc 33.3 g/dL (31.6-35.5); Mean Corpuscular Volume 90.1 fL (83.0-100.0); Mean Platelet Volume 9.7 fL (9.4-12.4); Platelet Count 405 K/mcL (140-400); Red Blood Count 3.43 M/mcL (3.82-4.97); Red Cell Distribution Width 13.9 % (11.5-14.5)
[2017-11-10 12:27] LABS: INR 1.2; Prothrombin Time 13.4 Seconds (9.4-12.1)
[2017-11-10 12:30] LABS: Activated Partial Thrombo Time 26.8 Seconds (26.0-36.0)
--- NOTE | 2017-11-10 15:38 | Palliative - Consult Note ---
Date of Encounter: 11/10/17 Time of Encounter: 16:00 - Assessment and Plan (1) Altered mental status Current Visit: Yes Status: Acute Assessment and plan: Per , this is slightly improved and she did respond to him appropriately - recognizing the name of her son. She did not follow commands for me, did answer few yes/no questions, but still quite altered. Will continue to monitor. Qualifiers: Altered mental status type: disorientation Qualified Code(s): R41.0 - Disorientation, unspecified (2) Goals of care, counseling/discussion Current Visit: Yes Status: Acute Assessment and plan: Long discussion with Nigel regarding goals of care. They have been 17 years - he has 9 children, but not close relationship with them and they live out of town. Patient has 5 living children, one son lives with them, but Nigel states he has issue with drinking and has recently lost his job. Nigel and pt are closest with her son Farooq, and Nigel has been discussing decisions regarding pt care with him. He has already changed code status today and she is currently DNR/DNI. He is agreeable to temporary feeding tube to give her more time to improve and provide her nutrition, however, he is not sure if permanent feeding tube would be pt wishes. He is to further discuss with Farooq. Nigel is very distraught, he is having financial difficulties, has no vehicle for transportation, and said he had told pt he wouldn't leave her. He is afraid if he leaves the hospital, he will not have a ride to return if something happens to her. He also describes that their relationship has been "bryan" the past year, and she has accused him of many things he didn't do. States that she had accidentally taken too much Vicodin at one time, when he had left for a few days. He describes her behavior as erratic, and hallucinating at times. We discussed different discharge options, depending upon her clinical status - he doesn't want her to go to ECF, and desires to care for her at home. Discussed home health if she improves, and hospice if not. Will f/u Monday and reassess her clinical status, - speak with Nigel regarding further decisions if necessary. (3) STEMI (ST elevation myocardial infarction) Current Visit: Yes Status: Acute Assessment and plan: Cardiology continues to follow s/p stents. Was ordered Asa and Brilinta, but has been unable to take po - currently on heparin drip. NG being placed for feeding and meds. Qualifiers: Involved coronary artery: LAD coronary artery Qualified Code(s): I21.02 - ST elevation (STEMI) myocardial infarction involving left anterior descending coronary artery (4) Acute respiratory failure Current Visit: Yes Status: Acute Qualifiers: Respiratory failure complication: hypoxia Qualified Code(s): J96.01 - Acute respiratory failure with hypoxia Palliative-CN HPI - Data of Consult Consult date: 11/10/17 Requesting Physician: Nicole Espinoza MD Primary Care Provider: PCP NONE - Consult Narrative History of present illness: Ms. Jose is a 82 year old female with was admitted with STEMI, her troponin peaked at greater than 73. She underwent emergent cath and PCI to LAD. She was taken back to [facility] and found to have LAD clot, balloon pump was placed and initially intubated for respiratory distress.. 2 drug eluting stents ( proximal LAD and Mid LAD) were placed. She ultimately was able to be extubated , however, her mental status is not back to baseline, and she has not been able to take anything po. Placed on heparin drip, as she was unable to have DAPT therapy. Other medical history includes: HTN, HLD. Upon my visit, she is awake and alert. Smiles at me when spoken to, and did shake head "yes/no" to a few questions. Does not follow any commands. Nigel has been staying here at hospital. He states that before admission, pt was able to do most of her ADL's, although he does the cooking and cleaning. Describes her behavior as more erratic over the past year, and that she has been verbally abusive, and accusing him of things he hasn't done. CC: Nicole Espinoza MD Past Med Surg Social Fam HX - Past Medical History Medical history: diabetes, hypertension Psychiatric history: no psych history - Past Surgical History Surgical History: other (unable to obtain) - Social History Smoking Status: Current every day smoker Smokeless Tobacco Status: No Alcohol use: none Drug use: none Medications and Allergies Amlodipine Besylate 5 mg PO DAILY 01/18/17 [History] Atorvastatin [Lipitor] 20 mg PO HS 01/18/17 [History] Clopidogrel [Plavix] 75 mg PO DAILY 01/18/17 [History] Gabapentin [Neurontin] 300 mg PO HS 01/18/17 [History] Lisinopril [Zestril] 40 mg PO DAILY 01/18/17 [History] Metformin HCl [Metformin HCl ER] 500 mg PO BID 01/18/17 [History] hydroCHLOROthiazide [Hydrochlorothiazide] 12.5 mg PO DAILY 01/18/17 [History] HYDROcodone/Acet 10/325 mg [[place] 10-325 mg] 1 tab PO BID PRN #0 01/20/17 [Rx] Metoprolol [Lopressor] 25 mg PO DAILY 11/06/17 [History] 3 Allergy/AdvReac Type Severity Reaction Status Date / Time aspirin Allergy See Verified 05/25/16 17:16 Comments ibuprofen [From Motrin] Allergy See Verified 05/25/16 17:16 Comments ROS unobtainable: due to mental status Palliative Care-Exam - Constitutional Vitals: Temp Pulse Resp BP Pulse Ox 98.4 F 79 22 129/56 98 11/10/17 12:00 11/10/17 14:00 11/10/17 14:00 11/10/17 14:00 11/10/17 14:00 General appearance: Present: no acute distress - Head Head Exam: Present: normal inspection, normocephalic - Eye Eye exam: Present: normal appearance, PERRL - Respiratory Respiratory exam: Present: decreased breath sounds, CTAB - GI/Abdominal Exam GI/Abdominal exam: Present: normal bowel sounds, soft - Catheter Type: Urethral (George) Additional comments: George with yellow urine - some white sediment noted in tubing - Extremities Exam Extremities exam: Present: normal capillary refill, normal inspection - Neurological Exam Neurological exam: Present: alert Additional comments: Awake and alert, smiling at intervals. Did shake head "yes/no" for me to a few questions, but not consistent. Does not follow commands. - Skin Skin exam: Present: dry, warm Internal Medicine - CN: Reslt - Labs CBC & Chem 7: 11/10/17 10:42 11/10/17 03:31 Labs: Short CBC 11/10/17 11/10/17 Range/Units 03:31 10:42 WBC 17.7 H 15.7 H (4.3-11.1) K/mcL Hgb 10.7 L 10.3 L (11.5-15.4) g/dL Hct 32.9 L 30.9 L (35.3-44.9) % Plt Count 393 D 405 H (140-400) K/mcL Neutrophils # 14.9 H (1.6-8.9) K/mcL BMP 11/10/17 03:31 Sodium 142 Potassium 3.3 L Chloride 109 H Carbon Dioxide 22 L BUN 21 Creatinine 0.85 Glucose 85 Calcium 8.4 L - ABG Interpretation ABG results: ABG ABG pH 7.36 pH Units (7.32-7.45) 11/09/17 04:19 ABG pCO2 31 mmHg (35-45) L 11/09/17 04:19 ABG pO2 76 mmHg (85-104) L 11/09/17 04:19 ABG O2 Saturation 95 % (95-98) 11/09/17 04:19 PT/INR, D-dimer PT 13.4 Seconds (9.4-12.1) H 11/10/17 10:42 - Impressions Impressions Chest X-Ray 11/06/17 15:02 IMPRESSION: IABP tip projects over the descending thoracic aorta, approximately 2.5 cm below the level of the aortic arch. D/ / 11/06/2017 15:25:01 Cyrus Manuel MD / bcarter Interpreting Provider: Cyrus Manuel MD Consult Discharge Plan - Plan Referrals: NONE,PCP [Primary Care Provider] - Palliative Quality Palliative Quality: Screen for Code Status: Yes, Screen for Goals of Care: Yes, Screen for Pain: Yes, If Pain Regimen Started, Initiate Bowel Regimen: NA, Screen for Nausea/Vomitting: Yes Code Status: 11/08/17 10:53 CODE [Resuscitation Status: Active] [RES] Routine Comment: Resuscitation Status: Full Code 11/10/17 13:32 CODE [Resuscitation Status: Active] [RES] Routine Comment: Resuscitation Status: [id number]
--- NOTE | 2017-11-10 18:00 | Event Note ---
Date of Encounter: 11/10/17 Time of Encounter: 17:59 - Cardiology Event Note Medications reviewed - patient was not given Brilinta or asa today due to inability to swallow. Just spoke with nursing this evening. Was told NGT recently placed and medications will be given. Emphasized the importance of ensuring DAPT.
[2017-11-10] MEDS ORDERED: *HR* Ticagrelor 90 MG TABLET ONE (18:34)
[2017-11-10] MEDS: Norepinephrine 4 MG in D5% in Water 250 ML IVC SCH (23:44)
[2017-11-11] MEDS: Insulin LISPRO 300 UNITS/3 ML VIAL SQ SCH ×4 (00:03→17:41)
[2017-11-11] MEDS: Chlorhexidine Rinse 15 ML MOUTHWASH MM SCH ×3 (00:03→21:42)
[2017-11-11] MEDS: *HR* Metoprolol 5 MG/5 ML VIAL IVP SCH ×4 (01:35→18:57)
[2017-11-11] MEDS: Ipratropium/Albuterol Neb 3 ML IH SCH ×5 (03:21→19:56)
[2017-11-11 04:11] LABS: Basophils # 0.1 K/mcL (0.0-0.2); Basophils % 0.4 %; Eosinophils # 0.4 K/mcL (0.0-0.6); Eosinophils % 2.2 %; Hematocrit 28.6 % (35.3-44.9); Hemoglobin 9.6 g/dL (11.5-15.4); Immature Granulocytes % 0.6 % (0-4); Lymphocytes % 5.9 %; Mean Corpuscular HGB Conc 33.6 g/dL (31.6-35.5); Mean Corpuscular Hemoglobin 30.1 pg (28.0-33.3); Mean Corpuscular Volume 89.7 fL (83.0-100.0); Mean Platelet Volume 9.7 fL (9.4-12.4); Monocytes # 1.8 K/mcL (0.0-1.3); Monocytes % 10.4 %; Neutrophils # 13.6 K/mcL (1.6-8.9); Platelet Count 436 K/mcL (140-400); Red Blood Count 3.19 M/mcL (3.82-4.97); Red Cell Distribution Width 13.7 % (11.5-14.5); Segmented Neutrophils % 80.5 %
[2017-11-11 04:29] LABS: BUN/Creatinine Ratio 30 (6-26); Blood Urea Nitrogen 21 mg/dL (8-23); Calcium 8.1 mg/dL (8.6-10.3); Carbon Dioxide 23 mEq/L (23-29); Chloride 113 mEq/L (98-107); Glucose 183 mg/dL (70-105); Osmolality,Calculated 302 (280-300); Potassium 3.6 mEq/L (3.5-5.1); Sodium 142 mEq/L (136-145); eGFR For African Americans > 60 (> 60); eGFR For Non-African Americans > 60 (> 60)
[2017-11-11] MEDS: Potassium Chloride 40 MEQ/200 ML BAG IVPB PRN (05:59)
[2017-11-11] MEDS: Pantoprazole 40 MG VIAL IVP SCH (08:46)
[2017-11-11] MEDS: Aspirin 81 MG TAB.CHEW PO SCH (08:46)
[2017-11-11] MEDS: *HR* Ticagrelor 90 MG TABLET PO SCH ×2 (08:47→21:42)
[2017-11-11] MEDS: Heparin 25,000 UNIT/500 ML D5W 25,000 UNIT/500 ML BAG IVC SCH ×2 (08:47→16:05)
--- NOTE | 2017-11-11 09:56 | Pulmonology Progress Note ---
<Zachariah Lezama - Last Filed: 11/11/17 09:42> Date of Encounter: 11/11/17 Time of Encounter: 09:00 Assessment and Plan (1) Pneumonia Current Visit: Yes Status: Acute Chest x-ray with pleural effusion and prior opacity. Leukocytosis as well as increased sputum production. Sputum culture results demonstrating MRSA. Peripheral blood cultures no growth. Plan: Continue vancomycin, day 3 Patient can be transferred to We will transfer patient to hospitalist Qualifiers: Pneumonia type: due to unspecified organism Laterality: bilateral Lung location: unspecified part of lung Qualified Code(s): J18.9 - Pneumonia, unspecified organism (2) Acute metabolic encephalopathy Current Visit: Yes Status: Acute Patient currently not following commands, however was successfully extubated Head CT is negative for any acute intracranial process EEG does not show epileptic activity (3) Acute respiratory failure Current Visit: Yes Status: Acute Patient Acute hypoxic respiratory failure secondary to hydrostatic pulmonary edema secondary to cardiogenic shock due to underlying STEMI The patient has been successfully liberated from ventilator, requires intermittent BiPAP Sputum cultures are positive for MRSA, on vancomycin We started antibiotics today, continue to monitor Add duonebs for wheezing and rhonchi Qualifiers: Respiratory failure complication: hypoxia Qualified Code(s): J96.01 - Acute respiratory failure with hypoxia (4) CVA (cerebral vascular accident) Current Visit: Yes Status: Acute Suspected CVA Patient is not moving her right upper extremity, there is flaccid tonicity Spoke with the patient's about current likihood of embolic event He does not plan to pursue aggressive management, denied MRI upon offer The patient is on Dual antiplatelet and anticoagulation PT/OT when patient is capable Qualifiers: CVA mechanism: embolism Precerebral and cerebral artery: unspecified precerebral artery Qualified Code(s): I63.10 - Cerebral infarction due to embolism of unspecified precerebral artery (5) Cardiogenic shock Current Visit: Yes Status: Resolved Cardiogenic shock following PCI necessitating IABP as well as vasopressor support. Aortic balloon removed. Liberated from vasopressors (6) STEMI (ST elevation myocardial infarction) Current Visit: Yes Status: Acute Patient has instant thrombosis after PCI developed dissection developed a large anterior wall [place] with cardiogenic shock Managment according to cardiology Continued management per cardiology Inserted NG tube for Brillinta Qualifiers: Involved coronary artery: LAD coronary artery Qualified Code(s): I21.02 - ST elevation (STEMI) myocardial infarction involving left anterior descending coronary artery (7) Goals of care, counseling/discussion Current Visit: Yes Status: Acute We had a long discussion with the patient's about goals of care. He seems to have a realistic understanding of the patient's poor prognosis, and likely need for aggressive lifesaving measures if the goal to sustain life is maintained. We discussed CODE status chnge, and he agrees to change CODE status to DNR-cca-DNI for now, with likely progression to DNR-cc later. We will consult palliative for further discussion. (8) DVT prophylaxis Current Visit: No Status: Acute Patient is on heparin drip Subjective Principal diagnosis: STEMI Interval history: The patient is resting comfortably in bed at time of examination. She remains altered and unable to communicate effectively. She is not moving her Right arm, however she does show facial grimace with passive movement and acknowledgement of pain. Objective PUL Vital signs: Last Vital Signs Temp 98.0 F 11/11/17 08:00 Pulse 74 11/11/17 09:00 Resp 22 11/11/17 09:00 BP 156/64 11/11/17 09:00 Pulse Ox 92 11/11/17 09:00 Gen: Vitals noted. Appears non-toxic HEENT: Normocephalic, atraumatic Neck: Supple. No adenopathy. Cardiac: irregularly irregular, no murmur, +S1/S2 Pulmonary: CTAB, significantly improved from prior exam Abdomen: soft, nontender, BS noted, no guarding Back: Nontender throughout. MSK: ROM intact, no joint swelling noted Extremities: no BLE edema, nontender calf, no cyanosis or clubbing Neuro: altered status, alert and communicates only with head nods and grunts. Flaccid right upper extremity, appears to grimace with touch and movement Results - Laboratory Findings CBC and BMP: 11/11/17 03:50 11/11/17 03:50 ABG ABG pH 7.36 pH Units (7.32-7.45) 11/09/17 04:19 ABG pCO2 31 mmHg (35-45) L 11/09/17 04:19 ABG pO2 76 mmHg (85-104) L 11/09/17 04:19 ABG O2 Saturation 95 % (95-98) 11/09/17 04:19 PT/INR, D-dimer PT 13.4 Seconds (9.4-12.1) H 11/10/17 10:42 Abnormal lab findings: Abnormal lab results WBC 16.9 K/mcL (4.3-11.1) H 11/11/17 03:50 RBC 3.19 M/mcL (3.82-4.97) L 11/11/17 03:50 Hgb 9.6 g/dL (11.5-15.4) L 11/11/17 03:50 Hct 28.6 % (35.3-44.9) L 11/11/17 03:50 Plt Count 436 K/mcL (140-400) H 11/11/17 03:50 Neutrophils # 13.6 K/mcL (1.6-8.9) H 11/11/17 03:50 Monocytes # 1.8 K/mcL (0.0-1.3) H 11/11/17 03:50 PT 13.4 Seconds (9.4-12.1) H 11/10/17 10:42 APTT 56.9 Seconds (26.0-36.0) H 11/11/17 07:54 Heparin Anti-Xa, Unfract 1.92 IU/mL (0.30-0.70) H* 11/04/17 22:40 ABG pCO2 31 mmHg (35-45) L 11/09/17 04:19 ABG pO2 76 mmHg (85-104) L 11/09/17 04:19 ABG HCO3 17 mEq/L (21-27) L 11/09/17 04:19 ABG Total CO2 18 mEq/L (20-26) L 11/09/17 04:19 ABG Base Excess -7 mEq/L (-2 to 3) L 11/09/17 04:19 VBG pH 7.30 pH Units (7.32-7.42) L 11/08/17 04:35 Chloride 113 mEq/L (98-107) H 11/11/17 03:50 BUN/Creatinine Ratio 30 (6-26) H 11/11/17 03:50 Glucose 183 mg/dL (70-105) H 11/11/17 03:50 POC Glucose 150 mg/dL (70-99) H 11/11/17 00:00 Hemoglobin A1c 6.3 % (-5.6) H 11/05/17 03:30 Calculated Osmolality 302 (280-300) H 11/11/17 03:50 Calcium 8.1 mg/dL (8.6-10.3) L 11/11/17 03:50 Troponin I > 73.00 ng/mL (< 0.04) H* 11/05/17 03:30 Procalcitonin 0.56 ng/mL (<=0.10) H 11/07/17 04:50 - Microbiology Findings Microbiology Findings: Microbiology, Last 48 Hours 11/07/17 03:55 Sputum Culture - Final Sputum Methicillin Resistant S.aureus - Clinical Findings Intake & Output: Intake & Output 11/10/17 11/11/17 11/11/17 23:59 07:59 15:59 Intake Total 543 / 543 766 / 766 246 / 246 Output Total 325 / 325 575 / 575 200 / 200 Balance 218 / 218 191 / 191 46 / 46 Weight 64 kg - VTE Reasons for not Prescribing Prophylaxis: Not indicated-Anticoagulated or INR therapeutic Consult Discharge Plan - Plan Referrals: NONE,PCP [Primary Care Provider] - <Kimberly Sherwood - Last Filed: 11/11/17 22:17> Date of Encounter: 11/11/17 Assessment and Plan (1) Acute respiratory failure Current Visit: Yes Status: Acute Qualifiers: Respiratory failure complication: hypoxia Qualified Code(s): J96.01 - Acute respiratory failure with hypoxia (2) STEMI (ST elevation myocardial infarction) Current Visit: Yes Status: Acute Qualifiers: Involved coronary artery: LAD coronary artery Qualified Code(s): I21.02 - ST elevation (STEMI) myocardial infarction involving left anterior descending coronary artery (3) Cardiogenic shock Current Visit: Yes Status: Resolved (4) DVT prophylaxis Current Visit: No Status: Acute Objective PUL Vital signs: Last Vital Signs Temp 98.7 F 11/11/17 20:51 Pulse 68 11/11/17 20:51 Resp 16 11/11/17 20:51 BP 145/67 11/11/17 15:20 Pulse Ox 97 11/11/17 20:51 Results - Laboratory Findings CBC and BMP: 11/11/17 19:10 11/11/17 13:55 ABG ABG pH 7.36 pH Units (7.32-7.45) 11/09/17 04:19 ABG pCO2 31 mmHg (35-45) L 11/09/17 04:19 ABG pO2 76 mmHg (85-104) L 11/09/17 04:19 ABG O2 Saturation 95 % (95-98) 11/09/17 04:19 PT/INR, D-dimer PT 13.4 Seconds (9.4-12.1) H 11/10/17 10:42 Abnormal lab findings: Abnormal lab results WBC 16.7 K/mcL (4.3-11.1) H 11/11/17 19:10 RBC 3.34 M/mcL (3.82-4.97) L 11/11/17 19:10 Hgb 10.1 g/dL (11.5-15.4) L 11/11/17 19:10 Hct 29.9 % (35.3-44.9) L 11/11/17 19:10 Plt Count 503 K/mcL (140-400) H 11/11/17 19:10 Neutrophils # 12.7 K/mcL (1.6-8.9) H 11/11/17 19:10 Monocytes # 2.1 K/mcL (0.0-1.3) H 11/11/17 19:10 PT 13.4 Seconds (9.4-12.1) H 11/10/17 10:42 APTT 76.2 Seconds (26.0-36.0) H 11/11/17 19:21 Heparin Anti-Xa, Unfract 1.92 IU/mL (0.30-0.70) H* 11/04/17 22:40 ABG pCO2 31 mmHg (35-45) L 11/09/17 04:19 ABG pO2 76 mmHg (85-104) L 11/09/17 04:19 ABG HCO3 17 mEq/L (21-27) L 11/09/17 04:19 ABG Total CO2 18 mEq/L (20-26) L 11/09/17 04:19 ABG Base Excess -7 mEq/L (-2 to 3) L 11/09/17 04:19 VBG pH 7.30 pH Units (7.32-7.42) L 11/08/17 04:35 Chloride 113 mEq/L (98-107) H 11/11/17 03:50 BUN/Creatinine Ratio 30 (6-26) H 11/11/17 03:50 Glucose 183 mg/dL (70-105) H 11/11/17 03:50 POC Glucose 150 mg/dL (70-99) H 11/11/17 00:00 Hemoglobin A1c 6.3 % (-5.6) H 11/05/17 03:30 Calculated Osmolality 302 (280-300) H 11/11/17 03:50 Calcium 8.1 mg/dL (8.6-10.3) L 11/11/17 03:50 Troponin I > 73.00 ng/mL (< 0.04) H* 11/05/17 03:30 Procalcitonin 0.56 ng/mL (<=0.10) H 11/07/17 04:50 Vancomycin Trough 17 mcg/mL (5-10) H 11/11/17 10:55 - Microbiology Findings Microbiology Findings: Microbiology, Last 48 Hours 11/05/17 15:13 Blood Culture - Final Peripheral Venipuncture No growth. - Clinical Findings Intake & Output: Intake & Output 11/11/17 11/11/17 11/11/17 07:59 15:59 23:59 Intake Total 966 / 966 628 / 628 Output Total 575 / 575 600 / 600 Balance 391 / 391 / Weight 64 kg - Attending Attestation - Attending Attestation I saw and evaluated this patient and my medical decision-making was reviewed with the Resident Physician. I agree with the documented findings, disposition and treatment plan as described except to the extent set forth below. We independently had [id number] contact with the patient Patient seen and examined at bedside Labs, radiology, chart personally reviewed. Management was reviewed during multidisciplinary critical care rounds. CLOTH CHECKER:Patient is opening her eyes following commands , CT head unremarkable , EEG shows encephalopathy , patient is not moving his right upper extremity , patient declined further investigation like MRI to look for any developing infarct . Patient is at her new baseline responding to simple questions following commands , she has sensation on the right upper extremity but she could move the right upper extremity . Pulm: Acute hypoxic respiratory failure secondary to hydrostatic pulmonary edema due to cardiogenic shock shows copious thick yellow secretion gram stain with gram positive cocci which is growing MRSA , secretions is lot less patient is needing minimal ventilatory support . 11/09 after ensure adequate cough with no leak patient was extubated to BIPAP Patient doing well on Nasal cannula acceptable oxygenation and ventilation . 11/11 Patient has acceptable oxygenation and ventilation Cards:Cardiogenic shock reversed off vasopressors, managment according to cardiology . To continue DAPD for ELIO in LAD . To continue management according to cardiology . FEN-GI: To follow nutrition recs, patient got NG access Renal: Labs reviewed ID: Sputum culture is growing MRSA to continue Vancomycin Heme/Onc:Labs reviewed Endo: Glucose Monitored Integ/MSK: Skin Care per routine ICU Nursing Protocol to prevent ulcers. Lines: All lines examined without evidence of infection : Dispo: Will transfer to step down today CODE:According to patient wishes changed to code status to DNRA -DNI
[2017-11-11] MEDS ORDERED: Norepinephrine 4 MG in D5% in Water 250 ML IVC SCH (10:26)
[2017-11-11] MEDS ORDERED: *HR* Dextrose 50 % in Water (Syg) 50 ML SYRINGE IVP PRN (10:26)
[2017-11-11] MEDS ORDERED: D5% in Water 1,000 ML IVC PRN (10:26)
[2017-11-11] MEDS ORDERED: Dextrose Gel 15 GM/37.5 ML TUBE PO PRN ×2 (10:26)
[2017-11-11] MEDS ORDERED: Potassium Chloride 40 MEQ/200 ML BAG IVPB PRN (10:26)
[2017-11-11] MEDS ORDERED: Potassium Phosphate 44 MEQ in 0.9 % Sodium Chloride 250 ML IVPB PRN (10:26)
[2017-11-11] MEDS ORDERED: *HR* Heparin 5,000 UNIT/ML VIAL IVP PRN ×2 (10:26)
[2017-11-11] MEDS ORDERED: 0.9 % Sodium Chloride 250 ML ONE (18:41)
[2017-11-11 19:20] LABS: Basophils # 0.1 K/mcL (0.0-0.2); Basophils % 0.5 %; Eosinophils # 0.6 K/mcL (0.0-0.6); Eosinophils % 3.5 %; Hematocrit 29.9 % (35.3-44.9); Hemoglobin 10.1 g/dL (11.5-15.4); Immature Granulocytes % 1.4 % (0-4); Lymphocytes % 6.1 %; Mean Corpuscular HGB Conc 33.8 g/dL (31.6-35.5); Mean Corpuscular Hemoglobin 30.2 pg (28.0-33.3); Mean Corpuscular Volume 89.5 fL (83.0-100.0); Mean Platelet Volume 9.6 fL (9.4-12.4); Monocytes # 2.1 K/mcL (0.0-1.3); Monocytes % 12.4 %; Neutrophils # 12.7 K/mcL (1.6-8.9); Platelet Count 503 K/mcL (140-400); Red Blood Count 3.34 M/mcL (3.82-4.97); Red Cell Distribution Width 13.9 % (11.5-14.5); Segmented Neutrophils % 76.1 %
[2017-11-12] MEDS: *HR* Metoprolol 5 MG/5 ML VIAL IVP SCH ×4 (00:51→18:16)
[2017-11-12] MEDS: Ipratropium/Albuterol Neb 3 ML IH SCH ×6 (00:58→19:57)
[2017-11-12 04:13] LABS: Basophils # 0.1 K/mcL (0.0-0.2); Basophils % 0.6 %; Eosinophils # 0.8 K/mcL (0.0-0.6); Eosinophils % 5.2 %; Hematocrit 29.7 % (35.3-44.9); Hemoglobin 9.9 g/dL (11.5-15.4); Immature Granulocytes % 1.8 % (0-4); Lymphocytes # 1.1 K/mcL (0.6-4.6); Lymphocytes % 7.5 %; Mean Corpuscular HGB Conc 33.3 g/dL (31.6-35.5); Mean Corpuscular Hemoglobin 29.9 pg (28.0-33.3); Mean Corpuscular Volume 89.7 fL (83.0-100.0); Mean Platelet Volume 9.7 fL (9.4-12.4); Monocytes # 1.8 K/mcL (0.0-1.3); Monocytes % 11.6 %; Neutrophils # 11.1 K/mcL (1.6-8.9); Platelet Count 487 K/mcL (140-400); Red Blood Count 3.31 M/mcL (3.82-4.97); Red Cell Distribution Width 13.9 % (11.5-14.5); Segmented Neutrophils % 73.3 %
[2017-11-12 04:31] LABS: BUN/Creatinine Ratio 29 (6-26); Blood Urea Nitrogen 18 mg/dL (8-23); Calcium 8.7 mg/dL (8.6-10.3); Carbon Dioxide 26 mEq/L (23-29); Chloride 109 mEq/L (98-107); Glucose 155 mg/dL (70-105); Osmolality,Calculated 297 (280-300); Potassium 3.6 mEq/L (3.5-5.1); Sodium 141 mEq/L (136-145); eGFR For African Americans > 60 (> 60); eGFR For Non-African Americans > 60 (> 60)
[2017-11-12] MEDS: Insulin LISPRO 300 UNITS/3 ML VIAL SQ SCH ×4 (07:27→18:17)
[2017-11-12] MEDS: Pantoprazole 40 MG VIAL IVP SCH (10:01)
[2017-11-12] MEDS: *HR* Ticagrelor 90 MG TABLET PO SCH ×2 (10:01→20:49)
[2017-11-12] MEDS: Aspirin 81 MG TAB.CHEW PO SCH (10:01)
[2017-11-12] MEDS: Chlorhexidine Rinse 15 ML MOUTHWASH MM SCH (10:01)
[2017-11-12] MEDS: Heparin 25,000 UNIT/500 ML D5W 25,000 UNIT/500 ML BAG IVC SCH (10:02)
--- NOTE | 2017-11-12 13:11 | Internal Med Progress Note ---
Date of Encounter: 11/12/17 Time of Encounter: 13:09 - Assessment and plan (1) Cardiogenic shock Current Visit: Yes Status: Resolved Assessment and plan: - LHC revealed severe stenosis of LAD, s/p stents placement, complicated with in -stent thrombosis revealed by repeat PCI post procedure, was on IABP and pressors. Now off. - transferred out of ICU on 11/11. VSS. - was found to have Afib this morning and cardizem restarted, resumed to SR now , rated controlled at 70-80 with IV Cardizem @ 5mg/h. Cardixem CD started and drip stopped. - BP elevated with SBP>160, start on Metoprolol 25 mg daily. - continue Asa and Brillinta, heparin gtt bridge to oral AC once feasible. - CODE STATUS: DNR CCA. (2) Acute respiratory failure Current Visit: Yes Status: Acute Assessment and plan: - was intubated in ICU, extubated on 11/09, now on NC O2. stable Qualifiers: Respiratory failure complication: hypoxia Qualified Code(s): J96.01 - Acute respiratory failure with hypoxia (3) STEMI (ST elevation myocardial infarction) Current Visit: Yes Status: Acute Assessment and plan: - Status post LAD stents placement. Complicated with in-stent thrombosis and the cardiogenic shock. -Was intubated and on pressors and IABP, extubated on 11/09, off pressors and IABP. - BP elevated, started on Lopressor 25 daily. Adjust medications to achieve SBP less than 120. Qualifiers: Involved coronary artery: LAD coronary artery Qualified Code(s): I21.02 - ST elevation (STEMI) myocardial infarction involving left anterior descending coronary artery (4) Diabetes Current Visit: No Status: Chronic Assessment and plan: - Continue insulin sliding scale, adjust dose if needed. Qualifiers: Diabetes mellitus type: type 2 Diabetes mellitus intermediate manager insulin use: without group home use Diabetes mellitus complication status: without complication Qualified Code(s): E11.9 - Type 2 diabetes mellitus without complications (5) HTN (hypertension) Current Visit: No Status: Chronic Assessment and plan: - BP elevated, medication adjusted as above. Qualifiers: Hypertension type: essential hypertension Qualified Code(s): I10 - Essential (primary) hypertension (6) CAD (coronary artery disease) Current Visit: Yes Status: Chronic Assessment and plan: - Same as above. Qualifiers: Coronary Disease-Associated Artery/Lesion type: [place] artery [place] vs. transplanted heart: [place] heart Associated angina: angina presence unspecified Qualified Code(s): I25.10 - Atherosclerotic heart disease of [place] coronary artery without angina pectoris (7) Paroxysmal atrial fibrillation Current Visit: Yes Status: Acute Assessment and plan: - Rate controlled. Started patient on Cardizem CD 120 mg daily. On heparin drip and bridged to oral anticoagulation. - We will discuss with family, based on patient condition, Eliquis/ Xarelto highly recommended. (8) CVA (cerebral vascular accident) Current Visit: Yes Status: Acute Assessment and plan: - Patient was found to have right hemiparesis after extubation. CT revealed left basal ganglia infarction, likely chronic. - Family refused MR of brain. Qualifiers: CVA mechanism: embolism Precerebral and cerebral artery: unspecified precerebral artery Qualified Code(s): I63.10 - Cerebral infarction due to embolism of unspecified precerebral artery - Time Spent With Patient Total time spent is greater than 50% in coordination of care (as documented) at patient's floor/unit and/or counseling patient: Greater than 35 minutes - Subjective Interval history: Patient seen and examined in the room, she was not able to communicate verbally , but does nod her head to yes or no questions. She currently denies fever, chills, or night sweats. She has no chest pain, shortness of breath, or palpitation. - Constitutional Vitals: Temp Pulse Resp BP Pulse Ox 98.5 F 64 18 150/66 96 11/12/17 11:23 11/12/17 12:15 11/12/17 11:23 11/12/17 12:15 11/12/17 11:23 General appearance: Present: A&O X 2 Exam: PHYSICAL EXAMINATION: GENERAL APPEARANCE: The patient is alert to herself, and in no acute distress. HEENT: Head is normocephalic. The sinuses are nontender. Pupils are equal and reactive. The nares are patent. Oropharynx clear without lesions. NECK: Supple without lymphadenopathy. HEART: Regular rate and rhythm. LUNGS: No crackles or wheezes are heard. ABDOMEN: Soft, nontender, nondistended with good bowel sounds heard. Inguinal area is normal. EXTREMITIES: Without cyanosis, clubbing or edema. NEUROLOGICAL: right side weakness. SKIN: Warm and dry without any rash. Internal Medicine: Result - Labs CBC & Chem 7: 11/12/17 04:00 11/12/17 04:00 Labs: Short CBC 11/11/17 11/12/17 Range/Units 19:10 04:00 WBC 16.7 H 15.1 H (4.3-11.1) K/mcL Hgb 10.1 L 9.9 L (11.5-15.4) g/dL Hct 29.9 L 29.7 L (35.3-44.9) % Plt Count 503 H 487 H (140-400) K/mcL Neutrophils # 12.7 H 11.1 H (1.6-8.9) K/mcL BMP 11/11/17 11/12/17 13:55 04:00 Sodium 141 Potassium 4.0 3.6 Chloride 109 H Carbon Dioxide 26 BUN 18 Creatinine 0.62 Glucose 155 H Calcium 8.7 - ABG Interpretation ABG results: ABG ABG pH 7.36 pH Units (7.32-7.45) 11/09/17 04:19 ABG pCO2 31 mmHg (35-45) L 11/09/17 04:19 ABG pO2 76 mmHg (85-104) L 11/09/17 04:19 ABG O2 Saturation 95 % (95-98) 11/09/17 04:19 PT/INR, D-dimer PT 13.4 Seconds (9.4-12.1) H 11/10/17 10:42 - Impressions Impressions KUB X-Ray 11/12/17 04:56 IMPRESSION: Proximal esophagogastric tube positioning. Recommend advancing 10 cm. D/ / Robert Mcmillan / Robert Mcmillan Interpreting Provider: Robert Mcmillan X-Ray 11/12/17 06:49 IMPRESSION: NG tube tip projects over the fundus of the stomach. Side hole is at the GE junction. Consider advancement. D/ / Gabo Saunders MD / Gabo Saunders MD Interpreting Provider: Gabo Saunders MD - VTE Reasons for not Prescribing Prophylaxis: Not indicated-Anticoagulated or INR therapeutic Consult Discharge Plan - Plan Referrals: NONE,PCP [Primary Care Provider] -
[2017-11-12] MEDS: Apixaban 5 MG TABLET PO SCH ×2 (15:49→20:49)
[2017-11-12] MEDS: Diltiazem CD (24hr) 120 MG CAPSULE PO SCH (15:49)
[2017-11-12] MEDS: Piperacillin/Tazobactam 3.375 GM in 0.9 % Sodium Chloride Mini Bag 100 ML IVPB SCH (15:49)
[2017-11-12] MEDS: OXYCODONE Oral CONC 10 MG/0.5 ML ORAL.SYG SL PRN (20:48)
[2017-11-13] MEDS: Ipratropium/Albuterol Neb 3 ML IH SCH ×7 (01:33→23:54)
[2017-11-13] MEDS: Piperacillin/Tazobactam 3.375 GM in 0.9 % Sodium Chloride Mini Bag 100 ML IVPB SCH ×4 (04:14→23:59)
[2017-11-13] MEDS: *HR* Metoprolol 5 MG/5 ML VIAL IVP SCH ×5 (04:15→23:59)
[2017-11-13] MEDS: Chlorhexidine Rinse 15 ML MOUTHWASH MM SCH ×3 (04:20→21:13)
[2017-11-13] MEDS: Insulin LISPRO 300 UNITS/3 ML VIAL SQ SCH ×5 (04:34→21:13)
[2017-11-13 05:49] LABS: Basophils # 0.1 K/mcL (0.0-0.2); Basophils % 0.8 %; Eosinophils # 0.9 K/mcL (0.0-0.6); Hematocrit 28.4 % (35.3-44.9); Hemoglobin 9.7 g/dL (11.5-15.4); Immature Granulocytes % 3.5 % (0-4); Lymphocytes # 1.5 K/mcL (0.6-4.6); Lymphocytes % 10.1 %; Mean Corpuscular HGB Conc 34.2 g/dL (31.6-35.5); Mean Corpuscular Hemoglobin 29.8 pg (28.0-33.3); Mean Corpuscular Volume 87.4 fL (83.0-100.0); Mean Platelet Volume 10.1 fL (9.4-12.4); Monocytes % 13.6 %; Neutrophils # 9.4 K/mcL (1.6-8.9); Platelet Count 444 K/mcL (140-400); Red Blood Count 3.25 M/mcL (3.82-4.97); Red Cell Distribution Width 13.8 % (11.5-14.5)
[2017-11-13 06:02] LABS: BUN/Creatinine Ratio 23 (6-26); Blood Urea Nitrogen 14 mg/dL (8-23); Calcium 8.4 mg/dL (8.6-10.3); Carbon Dioxide 25 mEq/L (23-29); Chloride 109 mEq/L (98-107); Glucose 146 mg/dL (70-105); Magnesium 1.8 mg/dL (1.6-2.6); Osmolality,Calculated 297 (280-300); Potassium 3.3 mEq/L (3.5-5.1); Sodium 142 mEq/L (136-145); eGFR For African Americans > 60 (> 60); eGFR For Non-African Americans > 60 (> 60)
[2017-11-13] MEDS: Pantoprazole 40 MG VIAL IVP SCH (10:24)
[2017-11-13] MEDS: *HR* Ticagrelor 90 MG TABLET PO SCH ×2 (10:48→21:09)
[2017-11-13] MEDS: Aspirin 81 MG TAB.CHEW PO SCH (10:48)
[2017-11-13] MEDS: Diltiazem CD (24hr) 120 MG CAPSULE PO SCH (10:48)
[2017-11-13] MEDS: Apixaban 5 MG TABLET PO SCH ×2 (10:49→21:09)
[2017-11-13] MEDS: Metoprolol XL (24 HR) Succ 25 MG TAB.ER.24H PO SCH (10:49)
--- NOTE | 2017-11-13 11:45 | Palliative Progress Note ---
Date of Encounter: 11/13/17 Time of Encounter: 09:45 - Assessment and plan (1) Decreased oral intake Current Visit: Yes Status: Acute Assessment and plan: Speech to see today, however, unless her mentation improves, doubt they will be able to work with her. Will follow. (2) Acute metabolic encephalopathy Current Visit: Yes Status: Acute (3) Altered mental status Current Visit: Yes Status: Acute Assessment and plan: She is more alert, however, agitated and restless. Labs appear to be stable. She continues treatment for MRSA pneumonia. Qualifiers: Altered mental status type: disorientation Qualified Code(s): R41.0 - Disorientation, unspecified (4) Goals of care, counseling/discussion Current Visit: Yes Status: Acute Assessment and plan: WIll be speaking with when her arrives. Speech to see. (5) STEMI (ST elevation myocardial infarction) Current Visit: Yes Status: Acute Qualifiers: Involved coronary artery: LAD coronary artery Qualified Code(s): I21.02 - ST elevation (STEMI) myocardial infarction involving left anterior descending coronary artery (6) Acute respiratory failure Current Visit: Yes Status: Acute Qualifiers: Respiratory failure complication: hypoxia Qualified Code(s): J96.01 - Acute respiratory failure with hypoxia - Time Spent With Patient Total time spent is greater than 50% in coordination of care (as documented) at patient's floor/unit and/or counseling patient: 25 - 35 minutes - Subjective Interval history: Patient more alert since I saw her last Monday, however, she is restless and agitated. She can answer some questions and speech is clear. Other times it is garbled and not understandable. She has pulled NG out over the weekend and awaiting speech consult today. She denies any pain or shortness of breath. States "I'm going home", and attempt to put legs over bedrails. No family is present at the time of my visit. - Constitutional Vitals: Abnormal lab results WBC 14.3 K/mcL (4.3-11.1) H 11/13/17 05:31 RBC 3.25 M/mcL (3.82-4.97) L 11/13/17 05:31 Hgb 9.7 g/dL (11.5-15.4) L 11/13/17 05:31 Hct 28.4 % (35.3-44.9) L 11/13/17 05:31 Plt Count 444 K/mcL (140-400) H 11/13/17 05:31 Neutrophils # 9.4 K/mcL (1.6-8.9) H 11/13/17 05:31 Monocytes # 2.0 K/mcL (0.0-1.3) H 11/13/17 05:31 Eosinophils # 0.9 K/mcL (0.0-0.6) H 11/13/17 05:31 PT 13.4 Seconds (9.4-12.1) H 11/10/17 10:42 APTT 77.3 Seconds (26.0-36.0) H 11/11/17 22:04 Heparin Anti-Xa, Unfract 1.92 IU/mL (0.30-0.70) H* 11/04/17 22:40 ABG pCO2 31 mmHg (35-45) L 11/09/17 04:19 ABG pO2 76 mmHg (85-104) L 11/09/17 04:19 ABG HCO3 17 mEq/L (21-27) L 11/09/17 04:19 ABG Total CO2 18 mEq/L (20-26) L 11/09/17 04:19 ABG Base Excess -7 mEq/L (-2 to 3) L 11/09/17 04:19 VBG pH 7.30 pH Units (7.32-7.42) L 11/08/17 04:35 Potassium 3.3 mEq/L (3.5-5.1) L 11/13/17 05:31 Chloride 109 mEq/L (98-107) H 11/13/17 05:31 Glucose 146 mg/dL (70-105) H 11/13/17 05:31 POC Glucose 141 mg/dL (70-99) H 11/13/17 06:00 Hemoglobin A1c 6.3 % (-5.6) H 11/05/17 03:30 Calcium 8.4 mg/dL (8.6-10.3) L 11/13/17 05:31 Troponin I > 73.00 ng/mL (< 0.04) H* 11/05/17 03:30 Procalcitonin 0.56 ng/mL (<=0.10) H 11/07/17 04:50 Vancomycin Trough 17 mcg/mL (5-10) H 11/11/17 10:55 General appearance: Present: mild distress - Respiratory Respiratory exam: Present: decreased breath sounds, CTAB - Cardiovascular Cardiovascular exam: Present: +S1, +S2 - GI/Abdominal GI/Abdominal exam: Present: normal bowel sounds, soft - Extremities Exam Extremities exam: Present: normal capillary refill, normal inspection - Neurological Exam Neurological exam: Present: altered, strengths equal and symetr throughout Additional comments: Doesnt follow commands, agitated, strikes out occasionally. - Skin Skin exam: Present: dry, pallor, warm Palliative Quality Palliative Quality: Screen for Code Status: Yes, Screen for Goals of Care: Yes, Screen for Pain: Yes, If Pain Regimen Started, Initiate Bowel Regimen: NA, Screen for Nausea/Vomitting: Yes Code Status: 11/08/17 10:53 CODE [Resuscitation Status: Active] [RES] Routine Comment: Resuscitation Status: Full Code 11/10/17 13:32 CODE [Resuscitation Status: Active] [RES] Routine Comment: Resuscitation Status: [id number] - Labs CBC & Chem 7: 11/13/17 05:31 11/13/17 05:31 Labs: Laboratory Results - last 24 hr 11/12/17 11/12/17 11/13/17 11:00 18:01 00:07 WBC RBC Hgb Hct MCV MCH MCHC RDW Plt Count MPV Immature Gran % Seg Neutrophils % Lymphocytes % Monocytes % Eosinophils % Basophils % Neutrophils # Lymphocytes # Monocytes # Eosinophils # Basophils # Sodium Potassium Chloride Carbon Dioxide BUN Creatinine Est GFR ( Amer) Est GFR (Non-Af Amer) BUN/Creatinine Ratio Glucose POC Glucose 164 H 183 H 171 H Calculated Osmolality Calcium Magnesium 11/13/17 11/13/17 11/13/17 05:31 05:31 06:00 WBC 14.3 H RBC 3.25 L Hgb 9.7 L Hct 28.4 L MCV 87.4 MCH 29.8 MCHC 34.2 RDW 13.8 Plt Count 444 H MPV 10.1 Immature Gran % 3.5 Seg Neutrophils % 66.0 Lymphocytes % 10.1 Monocytes % 13.6 Eosinophils % 6.0 Basophils % 0.8 Neutrophils # 9.4 H Lymphocytes # 1.5 Monocytes # 2.0 H Eosinophils # 0.9 H Basophils # 0.1 Sodium 142 Potassium 3.3 L Chloride 109 H Carbon Dioxide 25 BUN 14 Creatinine 0.60 Est GFR ( Amer) > 60 Est GFR (Non-Af Amer) > 60 BUN/Creatinine Ratio 23 Glucose 146 H POC Glucose 141 H Calculated Osmolality 297 Calcium 8.4 L Magnesium 1.8 - ABG Interpretation ABG results: ABG ABG pH 7.36 pH Units (7.32-7.45) 11/09/17 04:19 ABG pCO2 31 mmHg (35-45) L 11/09/17 04:19 ABG pO2 76 mmHg (85-104) L 11/09/17 04:19 ABG O2 Saturation 95 % (95-98) 11/09/17 04:19 PT/INR, D-dimer PT 13.4 Seconds (9.4-12.1) H 11/10/17 10:42 Consult Discharge Plan - Plan Referrals: NONE,PCP [Primary Care Provider] -
--- NOTE | 2017-11-13 13:49 | Internal Med Progress Note ---
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 Diabetes mellitus complication status: without complication Qualified Code(s): E11.9 - Type 2 diabetes mellitus without complications (4) HTN (hypertension) Current Visit: No Status: Chronic Assessment and plan: continue current RX Qualifiers: Hypertension type: essential hypertension Qualified Code(s): I10 - Essential (primary) hypertension (5) STEMI (ST elevation myocardial infarction) Current Visit: Yes Status: Acute Assessment and plan: stemi s/p lad stent Qualifiers: Involved coronary artery: LAD coronary artery Qualified Code(s): I21.02 - ST elevation (STEMI) myocardial infarction involving left anterior descending coronary artery (6) CAD (coronary artery disease) Current Visit: Yes Status: Chronic Qualifiers: Coronary Disease-Associated Artery/Lesion type: [place] artery [place] vs. transplanted heart: [place] heart Associated angina: angina presence unspecified Qualified Code(s): I25.10 - Atherosclerotic heart disease of [place] coronary artery without angina pectoris (7) Paroxysmal atrial fibrillation Current Visit: Yes Status: Acute Assessment and plan: cardiology following (8) CVA (cerebral vascular accident) Current Visit: Yes Status: Acute Assessment and plan: noted right hemiplegia after extubation Qualifiers: CVA mechanism: embolism Precerebral and cerebral artery: unspecified precerebral artery Qualified Code(s): I63.10 - Cerebral infarction due to embolism of unspecified precerebral artery - Time Spent With Patient Total time spent is greater than 50% in coordination of care (as documented) at patient's floor/unit and/or counseling patient: - Subjective Interval history: patient seen and examined confused but awake and alert - Constitutional Vitals: Temp Pulse Resp BP Pulse Ox 98.1 F 82 18 157/60 96 11/13/17 07:38 11/13/17 11:23 11/13/17 11:23 11/13/17 07:38 11/13/17 11:23 General appearance: Present: A&O X 2 Internal Medicine: Result - Labs CBC & Chem 7: 11/13/17 05:31 11/13/17 05:31 Labs: Short CBC 11/13/17 Range/Units 05:31 WBC 14.3 H (4.3-11.1) K/mcL Hgb 9.7 L (11.5-15.4) g/dL Hct 28.4 L (35.3-44.9) % Plt Count 444 H (140-400) K/mcL Neutrophils # 9.4 H (1.6-8.9) K/mcL BMP 11/13/17 05:31 Sodium 142 Potassium 3.3 L Chloride 109 H Carbon Dioxide 25 BUN 14 Creatinine 0.60 Glucose 146 H Calcium 8.4 L - ABG Interpretation ABG results: ABG ABG pH 7.36 pH Units (7.32-7.45) 11/09/17 04:19 ABG pCO2 31 mmHg (35-45) L 11/09/17 04:19 ABG pO2 76 mmHg (85-104) L 11/09/17 04:19 ABG O2 Saturation 95 % (95-98) 11/09/17 04:19 PT/INR, D-dimer PT 13.4 Seconds (9.4-12.1) H 11/10/17 10:42 - VTE Reasons for not Prescribing Prophylaxis: Not indicated-Anticoagulated or INR therapeutic Documentation of Mechanical Device: Intermittent pneumatic compression device Consult Discharge Plan - Plan Referrals: Jen Luther DO [Resident] - 11/20/17 11:00 am
--- NOTE | 2017-11-13 14:14 | Event Note ---
Date of Encounter: 11/13/17 Time of Encounter: 14:10 Met with pt for follow up on goals of care discussion and discharge plan. Patient's son Farooq coming this evening from [place] and they will discuss home health vs hospice. Nigel wants to take her home, and does not want to place her in a nursing facility. Will f/u in am for their decision.
[2017-11-14] MEDS: Ipratropium/Albuterol Neb 3 ML IH SCH ×6 (03:41→23:35)
[2017-11-14] MEDS: *HR* Metoprolol 5 MG/5 ML VIAL IVP SCH ×3 (06:24→17:23)
[2017-11-14 07:44] LABS: BUN/Creatinine Ratio 17 (6-26); Blood Urea Nitrogen 11 mg/dL (8-23); Calcium 8.5 mg/dL (8.6-10.3); Carbon Dioxide 25 mEq/L (23-29); Chloride 108 mEq/L (98-107); Glucose 134 mg/dL (70-105); Osmolality,Calculated 301 (280-300); Potassium 2.8 mEq/L (3.5-5.1); Sodium 145 mEq/L (136-145); eGFR For African Americans > 60 (> 60); eGFR For Non-African Americans > 60 (> 60)
[2017-11-14] MEDS: Insulin LISPRO 300 UNITS/3 ML VIAL SQ SCH ×4 (08:43→19:57)
[2017-11-14] MEDS: Piperacillin/Tazobactam 3.375 GM in 0.9 % Sodium Chloride Mini Bag 100 ML IVPB SCH ×2 (08:50→17:23)
[2017-11-14] MEDS: Aspirin 81 MG TAB.CHEW PO SCH (08:50)
[2017-11-14] MEDS: Pantoprazole 40 MG VIAL IVP SCH (08:50)
[2017-11-14] MEDS: Chlorhexidine Rinse 15 ML MOUTHWASH MM SCH ×2 (08:50→19:27)
[2017-11-14] MEDS: *HR* Ticagrelor 90 MG TABLET PO SCH ×2 (08:50→19:27)
[2017-11-14] MEDS: Apixaban 5 MG TABLET PO SCH ×2 (08:50→19:26)
[2017-11-14] MEDS: Diltiazem CD (24hr) 120 MG CAPSULE PO SCH (08:59)
--- NOTE | 2017-11-14 09:22 | Palliative Progress Note ---
Date of Encounter: 11/14/17 Time of Encounter: 09:00 - Assessment and plan (1) Generalized pain Current Visit: Yes Status: Acute Assessment and plan: Has low dose Oxycodone available for PRN use if needed. Has not required the last 24 hours. MOnitor. (2) Decreased oral intake Current Visit: Yes Status: Acute Assessment and plan: Patient's restlessness and agitation have improved. Taking po now. MOnitor (3) Acute metabolic encephalopathy Current Visit: Yes Status: Acute (4) Altered mental status Current Visit: Yes Status: Acute Qualifiers: Altered mental status type: disorientation Qualified Code(s): R41.0 - Disorientation, unspecified (5) Goals of care, counseling/discussion Current Visit: Yes Status: Acute Assessment and plan: Patient's was supposed to meet with son yesterday evening to discuss if they desire home health or transition to comfort care and hospice upon discharge. Will meet with him today when he arrives. (6) STEMI (ST elevation myocardial infarction) Current Visit: Yes Status: Acute Qualifiers: Involved coronary artery: LAD coronary artery Qualified Code(s): I21.02 - ST elevation (STEMI) myocardial infarction involving left anterior descending coronary artery (7) Acute respiratory failure Current Visit: Yes Status: Acute Qualifiers: Respiratory failure complication: hypoxia Qualified Code(s): J96.01 - Acute respiratory failure with hypoxia - Time Spent With Patient Total time spent is greater than 50% in coordination of care (as documented) at patient's floor/unit and/or counseling patient: - Subjective Interval history: Patient much calmer today, pleasantly confused. Denies pain or discomfort. Slept through most of my assessment. No family at bedside. - Constitutional Vitals: Abnormal lab results WBC 14.3 K/mcL (4.3-11.1) H 11/13/17 05:31 RBC 3.25 M/mcL (3.82-4.97) L 11/13/17 05:31 Hgb 9.7 g/dL (11.5-15.4) L 11/13/17 05:31 Hct 28.4 % (35.3-44.9) L 11/13/17 05:31 Plt Count 444 K/mcL (140-400) H 11/13/17 05:31 Neutrophils # 9.4 K/mcL (1.6-8.9) H 11/13/17 05:31 Monocytes # 2.0 K/mcL (0.0-1.3) H 11/13/17 05:31 Eosinophils # 0.9 K/mcL (0.0-0.6) H 11/13/17 05:31 PT 13.4 Seconds (9.4-12.1) H 11/10/17 10:42 APTT 77.3 Seconds (26.0-36.0) H 11/11/17 22:04 Heparin Anti-Xa, Unfract 1.92 IU/mL (0.30-0.70) H* 11/04/17 22:40 ABG pCO2 31 mmHg (35-45) L 11/09/17 04:19 ABG pO2 76 mmHg (85-104) L 11/09/17 04:19 ABG HCO3 17 mEq/L (21-27) L 11/09/17 04:19 ABG Total CO2 18 mEq/L (20-26) L 11/09/17 04:19 ABG Base Excess -7 mEq/L (-2 to 3) L 11/09/17 04:19 VBG pH 7.30 pH Units (7.32-7.42) L 11/08/17 04:35 Potassium 2.8 mEq/L (3.5-5.1) L 11/14/17 06:54 Chloride 108 mEq/L (98-107) H 11/14/17 06:54 Glucose 134 mg/dL (70-105) H 11/14/17 06:54 POC Glucose 169 mg/dL (70-99) H 11/13/17 12:16 Hemoglobin A1c 6.3 % (-5.6) H 11/05/17 03:30 Calculated Osmolality 301 (280-300) H 11/14/17 06:54 Calcium 8.5 mg/dL (8.6-10.3) L 11/14/17 06:54 Troponin I > 73.00 ng/mL (< 0.04) H* 11/05/17 03:30 Procalcitonin 0.56 ng/mL (<=0.10) H 11/07/17 04:50 Vancomycin Trough 17 mcg/mL (5-10) H 11/11/17 10:55 General appearance: Present: no acute distress - Respiratory Respiratory exam: Present: decreased breath sounds, CTAB - Cardiovascular Cardiovascular exam: Present: irregular rhythm - GI/Abdominal GI/Abdominal exam: Present: normal bowel sounds, soft - Extremities Exam Extremities exam: Present: normal capillary refill, normal inspection - Neurological Exam Neurological exam: Present: alert Additional comments: Oriented to name only - Skin Skin exam: Present: dry, pallor, warm Palliative Quality Palliative Quality: Screen for Code Status: Yes, Screen for Goals of Care: Yes, Screen for Pain: Yes, If Pain Regimen Started, Initiate Bowel Regimen: NA, Screen for Nausea/Vomitting: Yes Code Status: 11/08/17 10:53 CODE [Resuscitation Status: Active] [RES] Routine Comment: Resuscitation Status: Full Code 11/10/17 13:32 CODE [Resuscitation Status: Active] [RES] Routine Comment: Resuscitation Status: [id number] - Labs CBC & Chem 7: 11/13/17 05:31 11/14/17 06:54 Labs: Laboratory Results - last 24 hr 11/11/17 11/13/17 11/14/17 14:02 12:16 06:54 Sodium 145 Potassium 2.8 L Chloride 108 H Carbon Dioxide 25 BUN 11 Creatinine 0.65 Est GFR ( Amer) > 60 Est GFR (Non-Af Amer) > 60 BUN/Creatinine Ratio 17 Glucose 134 H POC Glucose 247 H 169 H Calculated Osmolality 301 H Calcium 8.5 L - ABG Interpretation ABG results: ABG ABG pH 7.36 pH Units (7.32-7.45) 11/09/17 04:19 ABG pCO2 31 mmHg (35-45) L 11/09/17 04:19 ABG pO2 76 mmHg (85-104) L 11/09/17 04:19 ABG O2 Saturation 95 % (95-98) 11/09/17 04:19 PT/INR, D-dimer PT 13.4 Seconds (9.4-12.1) H 11/10/17 10:42 Consult Discharge Plan - Plan Referrals: Jen Luther DO [Resident] - 11/20/17 11:00 am
[2017-11-14] MEDS: Metoprolol XL (24 HR) Succ 25 MG TAB.ER.24H PO SCH (09:44)
--- NOTE | 2017-11-14 10:56 | Internal Med Progress Note ---
Date of Encounter: 11/14/17 Time of Encounter: 10:54 - Assessment and plan (1) Altered mental status Current Visit: Yes Status: Acute Assessment and plan: Patient clinically much better able to answer questions and follow, and there has some expressive aphasia Qualifiers: Altered mental status type: disorientation Qualified Code(s): R41.0 - Disorientation, unspecified (2) Acute encephalopathy Current Visit: No Status: Acute Assessment and plan: Clinically has improved and resolving (3) Diabetes Current Visit: No Status: Chronic Assessment and plan: Chronic we will continue current sliding scale Qualifiers: Diabetes mellitus type: type 2 Diabetes mellitus group home insulin use: without group home use Diabetes mellitus complication status: without complication Qualified Code(s): E11.9 - Type 2 diabetes mellitus without complications (4) HTN (hypertension) Current Visit: No Status: Chronic Assessment and plan: Chronic not well controlled in view of her CVA will leave blood pressures as it is for now Qualifiers: Hypertension type: essential hypertension Qualified Code(s): I10 - Essential (primary) hypertension (5) STEMI (ST elevation myocardial infarction) Current Visit: Yes Status: Acute Assessment and plan: Status post a recent angioplasty and stent placement to LAD Qualifiers: Involved coronary artery: LAD coronary artery Qualified Code(s): I21.02 - ST elevation (STEMI) myocardial infarction involving left anterior descending coronary artery (6) CAD (coronary artery disease) Current Visit: Yes Status: Chronic Qualifiers: Coronary Disease-Associated Artery/Lesion type: [place] artery [place] vs. transplanted heart: [place] heart Associated angina: angina presence unspecified Qualified Code(s): I25.10 - Atherosclerotic heart disease of [place] coronary artery without angina pectoris (7) Paroxysmal atrial fibrillation Current Visit: Yes Status: Acute Assessment and plan: Currently in atrial fibrillation rate is controlled l patient is anticoagulated (8) CVA (cerebral vascular accident) Current Visit: Yes Status: Acute Assessment and plan: neurology following Qualifiers: CVA mechanism: embolism Precerebral and cerebral artery: unspecified precerebral artery Qualified Code(s): I63.10 - Cerebral infarction due to embolism of unspecified precerebral artery - Time Spent With Patient Total time spent is greater than 50% in coordination of care (as documented) at patient's floor/unit and/or counseling patient: - Subjective Interval history: patient seen and examined awake and alert patient able to answer questions and responds appropriately is in the room and does not want patient to go to shelter or rehabilitation and he will like to take her home wasting noted to be discharged she was able to move her right arm and leg - Constitutional Vitals: Temp Pulse Resp BP Pulse Ox 98 F 67 16 168/63 94 11/14/17 07:03 11/14/17 08:45 11/14/17 07:26 11/14/17 07:26 11/14/17 07:26 General appearance: Present: A&O X 2 - Head Head exam: Present: atraumatic, normocephalic - Eye Eye exam: Present: PERRL, conjuntiva pink, sclera anicteric Pupils: Present: PERRL - Neck Neck exam general surgery: Present: supple, trachea midline. Absent: lymphadenopathy - Respiratory Respiratory exam: Present: prolonged expiratory phase, rhonchi - GI/Abdominal GI/Abdominal exam: Present: normal bowel sounds, soft, no peritoneal signs. Absent: distended, tenderness Internal Medicine: Result - Labs CBC & Chem 7: 11/13/17 05:31 11/14/17 06:54 Labs: BMP 11/14/17 06:54 Sodium 145 Potassium 2.8 L Chloride 108 H Carbon Dioxide 25 BUN 11 Creatinine 0.65 Glucose 134 H Calcium 8.5 L - ABG Interpretation ABG results: ABG ABG pH 7.36 pH Units (7.32-7.45) 11/09/17 04:19 ABG pCO2 31 mmHg (35-45) L 11/09/17 04:19 ABG pO2 76 mmHg (85-104) L 11/09/17 04:19 ABG O2 Saturation 95 % (95-98) 11/09/17 04:19 PT/INR, D-dimer PT 13.4 Seconds (9.4-12.1) H 11/10/17 10:42 - VTE Reasons for not Prescribing Prophylaxis: Not indicated-Anticoagulated or INR therapeutic Documentation of Mechanical Device: Intermittent pneumatic compression device Consult Discharge Plan - Plan Referrals: Jen Luther DO [Resident] - 11/20/17 11:00 am
--- NOTE | 2017-11-14 13:50 | Event Note ---
Date of Encounter: 11/14/17 Time of Encounter: 13:00 Met with pt to f/u on goals of care discussion. He discussed with pt son, Farooq last pm. They would like to plan on discharge home with [facility]. I notified [facility] who will be sending a billing customer service representative out this afternoon to meet with to discuss and arrange DME needs. Told to anticipate d/c within the next 24-48 hours.
[2017-11-14] MEDS: OXYCODONE Oral CONC 10 MG/0.5 ML ORAL.SYG SL PRN (19:27)
[2017-11-14] MEDS ORDERED: Potassium Chloride Elixir 20 MEQ/15 ML UDC GTUBE ONE (21:39)
[2017-11-14] MEDS ORDERED: Haloperidol Lactate 5 MG/ML VIAL IVP ONE (21:55)
[2017-11-14] MEDS ORDERED: Potassium Chloride 40 MEQ, Lidocaine 1% 2 ML in D5% in Water 500 ML IVPB ONE (22:00)
[2017-11-15] MEDS ORDERED: *HR* LORazepam 2 MG/ML VIAL IVP ONE (00:31)
[2017-11-15] MEDS ORDERED: *HR* LORazepam 2 MG/ML VIAL ONE (00:34)
[2017-11-15] MEDS: *HR* Metoprolol 5 MG/5 ML VIAL IVP SCH ×4 (00:49→19:48)
[2017-11-15] MEDS: Piperacillin/Tazobactam 3.375 GM in 0.9 % Sodium Chloride Mini Bag 100 ML IVPB SCH ×2 (00:50→09:01)
[2017-11-15] MEDS: Ipratropium/Albuterol Neb 3 ML IH SCH ×4 (03:51→16:36)
[2017-11-15 05:33] LABS: Hematocrit 28.6 % (35.3-44.9); Hemoglobin 9.4 g/dL (11.5-15.4); Mean Corpuscular HGB Conc 32.9 g/dL (31.6-35.5); Mean Corpuscular Hemoglobin 30.2 pg (28.0-33.3); Mean Platelet Volume 9.3 fL (9.4-12.4); Platelet Count 512 K/mcL (140-400); Red Blood Count 3.11 M/mcL (3.82-4.97); Red Cell Distribution Width 13.8 % (11.5-14.5)
[2017-11-15] MEDS: Insulin LISPRO 300 UNITS/3 ML VIAL SQ SCH ×3 (09:01→18:08)
[2017-11-15] MEDS: Pantoprazole 40 MG VIAL IVP SCH (09:01)
[2017-11-15] MEDS: Chlorhexidine Rinse 15 ML MOUTHWASH MM SCH (09:02)
--- NOTE | 2017-11-15 10:31 | Palliative Progress Note ---
Date of Encounter: 11/15/17 Time of Encounter: 10:25 - Assessment and plan (1) Generalized pain Current Visit: Yes Status: Acute Assessment and plan: Continue SL Oxycodone low dose PRN and adjust as needed. Utilized x1 last 24hours.. (2) Decreased oral intake Current Visit: Yes Status: Acute Assessment and plan: Encourage po when awake. Check albumin today (3) Acute metabolic encephalopathy Current Visit: Yes Status: Acute (4) Altered mental status Current Visit: Yes Status: Acute Assessment and plan: Waxes and wanes. Currently very drowsy and difficult to awaken, but apparently was up 1/2 the night. Qualifiers: Altered mental status type: disorientation Qualified Code(s): R41.0 - Disorientation, unspecified (5) Goals of care, counseling/discussion Current Visit: Yes Status: Acute Assessment and plan: Patient currently being evaluated for admission by [facility]. This patient has had increasing confusion at home the last 2-3 months prior to admission, and erratic behavior that including verbal outbursts and some hallucinations, according to . Since admission, her mental status has waxed and waned, she at times refuses to take medications, which is concerning as she has had cardiac stents placed soon after admission for the STEMI. Also, intake has not been consistent, and she refuses some meals. When she does agree to eat, she consumes usually 10-15% of meals. Speech was unable to do a formal evaluation r/t her behavior. She does not have any coughing, or clearing of throat during eating, however, she does have some rhonchi noted to RLL. With her altered mental status, I have great concern that she may be intermittently aspirating. She is bedbound at this point, not able to participate with therapy r/t her mental status. High risk for further complications r/t immobility. Nigel has transitioned her to a DNR Comfort Care and desires her to remain at home and be kept comfortable. D/W pt primary nurse Darcie as well as [facility] liasion nurse Olya as well. (6) STEMI (ST elevation myocardial infarction) Current Visit: Yes Status: Acute Qualifiers: Involved coronary artery: LAD coronary artery Qualified Code(s): I21.02 - ST elevation (STEMI) myocardial infarction involving left anterior descending coronary artery (7) Acute respiratory failure Current Visit: Yes Status: Acute Qualifiers: Respiratory failure complication: hypoxia Qualified Code(s): J96.01 - Acute respiratory failure with hypoxia - Time Spent With Patient Total time spent is greater than 50% in coordination of care (as documented) at patient's floor/unit and/or counseling patient: - Subjective Interval history: Patient lethargic and difficult to arouse this am. According to primary nurse, she was awake and agitated last night. K+ 2.8 yesterday , this was replaced. Oral intake 10-15% of breakfast and lunch yesterday. Refused dinner and breakfast. Occasionally refuses medications. No family at bedside. - Constitutional Vitals: Abnormal lab results WBC 15.3 K/mcL (4.3-11.1) H 11/15/17 05:05 RBC 3.11 M/mcL (3.82-4.97) L 11/15/17 05:05 Hgb 9.4 g/dL (11.5-15.4) L 11/15/17 05:05 Hct 28.6 % (35.3-44.9) L 11/15/17 05:05 Plt Count 512 K/mcL (140-400) H 11/15/17 05:05 MPV 9.3 fL (9.4-12.4) L 11/15/17 05:05 Neutrophils # 9.4 K/mcL (1.6-8.9) H 11/13/17 05:31 Monocytes # 2.0 K/mcL (0.0-1.3) H 11/13/17 05:31 Eosinophils # 0.9 K/mcL (0.0-0.6) H 11/13/17 05:31 PT 13.4 Seconds (9.4-12.1) H 11/10/17 10:42 APTT 77.3 Seconds (26.0-36.0) H 11/11/17 22:04 Heparin Anti-Xa, Unfract 1.92 IU/mL (0.30-0.70) H* 11/04/17 22:40 ABG pCO2 31 mmHg (35-45) L 11/09/17 04:19 ABG pO2 76 mmHg (85-104) L 11/09/17 04:19 ABG HCO3 17 mEq/L (21-27) L 11/09/17 04:19 ABG Total CO2 18 mEq/L (20-26) L 11/09/17 04:19 ABG Base Excess -7 mEq/L (-2 to 3) L 11/09/17 04:19 VBG pH 7.30 pH Units (7.32-7.42) L 11/08/17 04:35 Potassium 2.8 mEq/L (3.5-5.1) L 11/14/17 06:54 Chloride 108 mEq/L (98-107) H 11/14/17 06:54 Glucose 134 mg/dL (70-105) H 11/14/17 06:54 Hemoglobin A1c 6.3 % (-5.6) H 11/05/17 03:30 Calculated Osmolality 301 (280-300) H 11/14/17 06:54 Calcium 8.5 mg/dL (8.6-10.3) L 11/14/17 06:54 Troponin I > 73.00 ng/mL (< 0.04) H* 11/05/17 03:30 Procalcitonin 0.56 ng/mL (<=0.10) H 11/07/17 04:50 Vancomycin Trough 20 mcg/mL (5-10) H 11/14/17 21:56 General appearance: Present: no acute distress - Respiratory Additional comments: Rales RLL noted - Cardiovascular Cardiovascular exam: Present: irregular rhythm - GI/Abdominal GI/Abdominal exam: Present: normal bowel sounds, soft - Additional comments: gilbert with clear yellow urine - Extremities Exam Extremities exam: Present: normal capillary refill, normal inspection - Neurological Exam Additional comments: Awakens with stimulation, restless during assessment but no verbal response today. Falls back to sleep quickly. Will not follow commands. - Skin Skin exam: Present: dry, pallor, warm Palliative Quality Palliative Quality: Screen for Code Status: Yes, Screen for Goals of Care: Yes, Screen for Pain: Yes, If Pain Regimen Started, Initiate Bowel Regimen: NA, Screen for Nausea/Vomitting: Yes Code Status: 11/08/17 10:53 CODE [Resuscitation Status: Active] [RES] Routine Comment: Resuscitation Status: Full Code 11/10/17 13:32 CODE [Resuscitation Status: Active] [RES] Routine Comment: Resuscitation Status: [id number] 11/15/17 09:33 DNR [Resuscitation Status: Active] [RES] Routine Comment: Resuscitation Status: DNR-Comfort Care - Labs CBC & Chem 7: 11/15/17 05:05 11/14/17 06:54 Labs: Laboratory Results - last 24 hr 11/13/17 11/13/17 11/14/17 17:59 21:03 02:14 WBC RBC Hgb Hct MCV MCH MCHC RDW Plt Count MPV POC Glucose 149 H 156 H 128 H Vancomycin Trough 11/14/17 11/14/17 11/14/17 07:07 11:01 16:32 WBC RBC Hgb Hct MCV MCH MCHC RDW Plt Count MPV POC Glucose 119 H 198 H 89 Vancomycin Trough 11/14/17 11/15/17 21:56 05:05 WBC 15.3 H RBC 3.11 L Hgb 9.4 L Hct 28.6 L MCV 92.0 MCH 30.2 MCHC 32.9 RDW 13.8 Plt Count 512 H MPV 9.3 L POC Glucose Vancomycin Trough 20 H - Impressions Impressions Chest X-Ray 11/14/17 13:41 IMPRESSION: Bilateral airspace disease and effusions are noted, consistent with edema. An underlying acute inflammatory process or infection should also be considered in the appropriate clinical setting. D/ / Godfrey Rizzo / Godfrey Rizzo Interpreting Provider: Godfrey Rizzo - ABG Interpretation ABG results: ABG ABG pH 7.36 pH Units (7.32-7.45) 11/09/17 04:19 ABG pCO2 31 mmHg (35-45) L 11/09/17 04:19 ABG pO2 76 mmHg (85-104) L 11/09/17 04:19 ABG O2 Saturation 95 % (95-98) 11/09/17 04:19 PT/INR, D-dimer PT 13.4 Seconds (9.4-12.1) H 11/10/17 10:42 Consult Discharge Plan - Plan Referrals: Jen Luther DO [Resident] - 11/20/17 11:00 am Prescriptions: LORazepam Oral Conc [Ativan Oral Conc] 1 mg PO Q6HR PRN 7 Days #30 mls PRN Reason: anxiety/restlessness Haloperidol Oral Conc [Haldol] 1 mg PO Q6H PRN #30 mls PRN Reason: Agitation OXYCODONE Oral CONC [Oxycodone Oral Conc] 5 mg PO Q4H PRN 7 Days #30 oral.syg PRN Reason: pain/dyspnea
[2017-11-15] MEDS: *HR* Ticagrelor 90 MG TABLET PO SCH (11:12)
[2017-11-15] MEDS: Aspirin 81 MG TAB.CHEW PO SCH (11:12)
[2017-11-15] MEDS: Metoprolol XL (24 HR) Succ 25 MG TAB.ER.24H PO SCH (11:12)
[2017-11-15] MEDS: Diltiazem CD (24hr) 120 MG CAPSULE PO SCH ×2 (11:12→11:36)
[2017-11-15] MEDS: Apixaban 5 MG TABLET PO SCH (11:12)
[2017-11-15] MEDS ORDERED: Vancomycin 500 MG in 0.9 % Sodium Chloride Mini Bag 100 ML IVPB SCH (12:00)
[2017-11-15] MEDS ORDERED: Potassium Chloride Elixir 20 MEQ/15 ML UDC PO ONE (13:12)
--- NOTE | 2017-11-15 13:18 | Discharge Summary ---
Orders not resulted at time of discharge: Pending orders 11/15/17 11:02 Potassium Routine Date of Encounter: 11/15/17 Time of Encounter: 13:00 - Discharge Diagnosis (1) STEMI (ST elevation myocardial infarction) Priority: Primary Status: Acute Assessment and Plan: LHC revealed severe stenosis of LAD, s/p stents placement, complicated with in- stent thrombosis revealed by repeat PCI post procedure, was on IABP and pressors. Now off. - transferred out of ICU on 11/11. VSS. - was found to have Afib on and cardizem restarted, resumed to SR now, now rated controlled on po cardizem - BP elevated with SBP>160, start on Metoprolol 25 mg daily. - continue Asa and Brillinta, on apixaban for anticoagulation - CODE STATUS: DNR CCA. Will be discharged on aspirin and brillinta, as well as apixaban for atrial fibrillation and metoprolol and cardizem for rate control. Patient will be discharged to hospice. Palliative care following Qualifiers: Involved coronary artery: LAD coronary artery Qualified Code(s): I21.02 - ST elevation (STEMI) myocardial infarction involving left anterior descending coronary artery (2) Acute respiratory failure Priority: Secondary Status: Acute Assessment and Plan: - was intubated in ICU, extubated on 11/09, Currently stable. Qualifiers: Respiratory failure complication: hypoxia Qualified Code(s): J96.01 - Acute respiratory failure with hypoxia (3) Diabetes Priority: Secondary Status: Chronic Assessment and Plan: - Continue insulin sliding scale, adjust dose if needed. Qualifiers: Diabetes mellitus type: type 2 Diabetes mellitus snf insulin use: without extermination supervisor use Diabetes mellitus complication status: without complication Qualified Code(s): E11.9 - Type 2 diabetes mellitus without complications (4) HTN (hypertension) Priority: Secondary Status: Chronic Assessment and Plan: - BP elevated, medication adjusted as above. Qualifiers: Hypertension type: essential hypertension Qualified Code(s): I10 - Essential (primary) hypertension (5) Cardiogenic shock Priority: Secondary Status: Resolved Assessment and Plan: - LHC revealed severe stenosis of LAD, s/p stents placement, complicated with in -stent thrombosis revealed by repeat PCI post procedure, was on IABP and pressors. Now off. - transferred out of ICU on 11/11. VSS. - was found to have Afib this morning and cardizem restarted, resumed to SR now , rated controlled at 70-80 with IV Cardizem @ 5mg/h. Cardixem CD started and drip stopped. - BP elevated with SBP>160, start on Metoprolol 25 mg daily. - continue Asa and Brillinta, heparin gtt bridge to oral AC once feasible. Currently resolved - CODE STATUS: DNR CCA. (6) CAD (coronary artery disease) Priority: Secondary Status: Chronic Assessment and Plan: - Same as above. Qualifiers: Coronary Disease-Associated Artery/Lesion type: [place] artery [place] vs. transplanted heart: [place] heart Associated angina: angina presence unspecified Qualified Code(s): I25.10 - Atherosclerotic heart disease of [place] coronary artery without angina pectoris (7) Paroxysmal atrial fibrillation Priority: Secondary Status: Acute Assessment and Plan: - Rate controlled. Started patient on Cardizem CD 120 mg daily. On heparin drip and bridged to oral anticoagulation. - Continue on xarelto (8) CVA (cerebral vascular accident) Priority: Secondary Status: Acute Assessment and Plan: - Patient was found to have right hemiparesis after extubation. CT revealed left basal ganglia infarction, likely chronic. - Family refused MR of brain. Qualifiers: CVA mechanism: embolism Precerebral and cerebral artery: unspecified precerebral artery Qualified Code(s): I63.10 - Cerebral infarction due to embolism of unspecified precerebral artery Hospital course: Ms. Jose is a 82 year old female - Time Spent with Patient Total time spent providing and/or coordinating discharge services: - Discharge Medications Prescriptions: LORazepam Oral Conc [Ativan Oral Conc] 1 mg PO Q6HR PRN 7 Days #30 mls PRN Reason: anxiety/restlessness Apixaban [Eliquis] 2.5 mg PO BID #60 tablet Aspirin 81 mg PO DAILY #30 tab.chew Atorvastatin [Lipitor] 80 mg PO HS #30 tablet Diltiazem CD (24hr) [Cardizem CD] 120 mg PO DAILY #30 cap.er.24h Haloperidol Oral Conc [Haldol] 1 mg PO Q6H PRN #30 mls PRN Reason: Agitation OXYCODONE Oral CONC [Oxycodone Oral Conc] 5 mg PO Q4H PRN 7 Days #30 oral.syg PRN Reason: pain/dyspnea Ticagrelor [Brilinta] 90 mg PO BID #60 tablet Home Medications: Amlodipine Besylate 5 mg PO DAILY 01/18/17 [History] Gabapentin [Neurontin] 300 mg PO HS 01/18/17 [History] Lisinopril [Zestril] 40 mg PO DAILY 01/18/17 [History] Metformin HCl [Metformin HCl ER] 500 mg PO BID 01/18/17 [History] hydroCHLOROthiazide [Hydrochlorothiazide] 12.5 mg PO DAILY 01/18/17 [History] HYDROcodone/Acet 10/325 mg [[place] 10-325 mg] 1 tab PO BID PRN #0 01/20/17 [Rx] Metoprolol [Lopressor] 25 mg PO DAILY 11/06/17 [History] Apixaban [Eliquis] 2.5 mg PO BID #60 tablet 11/15/17 [Rx] Aspirin 81 mg PO DAILY #30 tab.chew 11/15/17 [Rx] Atorvastatin [Lipitor] 80 mg PO HS #30 tablet 11/15/17 [Rx] Diltiazem CD (24hr) [Cardizem CD] 120 mg PO DAILY #30 cap.er.24h 11/15/17 [Rx] Haloperidol Oral Conc [Haldol] 1 mg PO Q6H PRN #30 mls 11/15/17 [Rx] LORazepam Oral Conc [Ativan Oral Conc] 1 mg PO Q6HR PRN 7 Days #30 mls 11/15/17 [Rx] OXYCODONE Oral CONC [Oxycodone Oral Conc] 5 mg PO Q4H PRN 7 Days #30 oral.syg [Rx] Ticagrelor [Brilinta] 90 mg PO BID #60 tablet 11/15/17 [Rx] Allergies/Adverse Reactions: 3 Allergy/AdvReac Type Severity Reaction Status Date / Time aspirin Allergy See Verified 05/25/16 17:16 Comments ibuprofen [From Motrin] Allergy See Verified 05/25/16 17:16 Comments Date of admission: 11/04/17 18:45 Primary care physician: PCP NONE Consults: 11/04/17 22:40 Consult to Cardiac Rehabilitation-Phase1 [CONS] Routine Comment: Reason for Consult: AMI Call Completed: Yes Consult to Nurse Navigator [CONS] Routine Comment: 11/05/17 10:10 Consult to Pulmonology [CONS] Routine Consulting Provider: [facility] Amanda Reason for Consult: Assist with management of ventilator. Discussed with in ICU. Thank you. Call Completed: Yes 11/07/17 10:17 dietary consult [Consult to Nutrition] [CONS] Routine Comment: Consulting Provider: NUTRITION Reason for Dietary Consult: Tube Feed Start & Manage 11/09/17 12:09 Consult to Interpret Exam [CONS] Routine Consulting Provider: Leighann Marr Consult to Interpret Exam: Interpret EEG 11/10/17 10:46 Consult to Invasive Line Access Team [CONS] Routine Reason for Consult: poor access Line Type: EPIV 11/10/17 11:59 Consult to Palliative Care [CONS] Routine Comment: Consulting Provider: Palliative Care Amanda Reason for Consult: goals of therapy Call Completed: No 11/12/17 11:09 Consult to Hospitalist [CONS] Routine Consulting Provider: Hospitalist Dusty Reason for Consult: step down Call Completed: Yes - Constitutional Vitals: Temp Pulse Resp BP Pulse Ox 98.0 F 71 20 148/68 97 11/15/17 10:45 11/15/17 11:48 11/15/17 11:48 11/15/17 10:45 11/15/17 11:48 General appearance: Present: A&O X 1 - Head Head exam: Present: atraumatic, normocephalic - Eye Eye exam: Present: PERRL, conjuntiva pink, sclera anicteric Pupils: Present: PERRL - Neck Neck exam general surgery: Present: supple, trachea midline. Absent: lymphadenopathy - Respiratory Respiratory exam: Present: CTAB. Absent: accessory muscle use, rales, rhonchi, wheezes - Cardiovascular Cardiovascular exam: Present: RRR, +S1, +S2. Absent: diastolic murmur, gallop, rubs, systolic murmur - GI/Abdominal GI/Abdominal exam: Present: normal bowel sounds, soft, no peritoneal signs. Absent: distended, tenderness - Extremities Exam Extremities exam: Present: warm, radial pulses palpable and symmetrical. Absent : calf tenderness, cyanotic, pedal edema - Neurological Exam Neurological exam: Present: CN II-XII intact, oriented X3, no focal deficits. Absent: pronater drift, facial droop, speech deficit - Skin Skin exam: Present: dry, intact - Patient Status Disposition: Hospice - Home - Discharge Instructions Instructions: Lorazepam (By mouth), Aspirin (By mouth), Oxycodone, Rapid Release (By mouth), Haloperidol (Injection), Atorvastatin (By mouth), Ticagrelor (By mouth), Apixaban (By mouth), Myocardial Infarction (DC) Follow Up With: Jen Luther DO [Resident] - 11/20/17 11:00 am Farooq Gould CNP [Advanced Practice Nurse] - ([facility]- MAY CALL YOU WITH AN APPOINTMENT FOR FOLLOW UP) Additional Instructions: RISK FACTORS: STOP SMOKING: If you smoke, STOP. Smoking or tobacco use significantly increases your risk of heart disease because nicotine causes the arteries to narrow or constrict. It also causes fats to stick to the artery. Your chances of having a heart attack are greatly increased if you continue to smoke. For more information, call the education line for smoking cessation 8-840-YTTLMIY EAT A LOW FAT/CHOLESTEROL/SODIUM DIET: This diet may help reduce your chances of having a heart attack. LIFTING: Avoid lifting anything more than 10 pounds for 5-7 days Prior to straining, laughing, sneezing and/or coughing, apply manual pressure directly over insertion site. ACTIVITY: You may walk or climb stairs as tolerated You can resume sexual activity as tolerated In general, you are encouraged to engage in a minimum of 30 minutes or more of moderate intensity physical activity, such as brisk walking, daily or at least 3 -4 times weekly BATHING Do not submerge the site into water (bath tub, hot tub, swimming pool) for 1 week. This can be a source for infection into the blood stream. You may shower after 24 hours SITE CARE: After 24 hours, you may remove the dressing and leave the site open to air. Keep the site clean and dry. Clean gently and pat dry. You can expect bruising and tenderness that gradually resolve within a week or two. Return to work as instructed per your physician Resume driving as instructed per physician Keep all scheduled follow up appointments Resume medications as instructed IMPORTANT: If prescribed a Platelet Aggregation Inhibitor such as, Plavix, Brilinta or Effient: Duration of therapy is minimum one year These medications are often used in combination with Aspirin in prevention of future heart attacks Never discontinue unless consult with your Central Office Equipment Installer STROKE (CVA) Risk factors for a stroke are: Age, cigarette smoking, diabetes, excessive alcohol consumption, family history, high blood pressure, overweight, physical inactivity, prior stroke, heart attack, diagnosis of carotid artery stenosis or other artery disease. Warning signs: Sudden numbness or weakness of the face, arm or leg; especially on one side of the body, sudden confusion, trouble speaking or understanding, sudden trouble seeing in one or both eyes, sudden trouble walking, dizziness, loss of balance or coordination, sudden severe headache with no cause. Call 911 or go to the Emergency Room. CONGESTIVE HEART FAILURE: If you have been diagnosed with Congestive Heart Failure (CHF) and your symptoms return, make an appointment with your physician Weigh yourself daily. Notify your physician if you have a weight gain of two or more pounds in one day or five or more pounds in one week. If you experience any difficulty breathing, please call 911 BLEEDING: Although the risk of bleeding is minimal, it can happen. If you have any bleeding from the site, apply firm pressure above the puncture site for 10-15 minutes. If the bleeding does not stop, continue manual pressure and call 911 Contact your physician if: You develop a fever greater than 101 degrees Fahrenheit Your site becomes reddened or has any drainage You have an increase in pain or burning at the site or if a large knot forms at the site. If you experience chest pain, shortness of breath, dizziness, or extreme tiredness, stop the activity and rest. Please notify your physicians office if you experience any of these symptoms and they are not relieved by rest please call 911! - VTE Reasons for not Prescribing Prophylaxis: Not indicated-Anticoagulated or INR therapeutic Documentation of Mechanical Device: Intermittent pneumatic compression device
--- NOTE | 2017-11-15 13:19 | Physician Discharge Referral ---
Home Health/Hosp Referral Info Transfer to: Hospice - Diagnosis (1) Diabetes Priority: Primary Status: Chronic (2) HTN (hypertension) Priority: Secondary Status: Chronic (3) STEMI (ST elevation myocardial infarction) Priority: Primary Status: Acute (4) Acute respiratory failure Priority: Secondary Status: Acute (5) Cardiogenic shock Priority: Secondary Status: Resolved (6) CAD (coronary artery disease) Priority: Secondary Status: Chronic (7) Paroxysmal atrial fibrillation Priority: Secondary Status: Acute (8) CVA (cerebral vascular accident) Priority: Secondary Status: Acute - Respiratory Orders Smoking Cessation: Smoking cessation has been advised. For more information, call the [place] Tobacco Quit Line at 6-841-MBHI-NOW. - Diet/Nutrition Diet/Nutrition Orders: Mechanical Soft - Activity Activity Orders: Up ad brennen - Transfer Medications Prescriptions: LORazepam Oral Conc [Ativan Oral Conc] 1 mg PO Q6HR PRN 7 Days #30 mls PRN Reason: anxiety/restlessness Haloperidol Oral Conc [Haldol] 1 mg PO Q6H PRN #30 mls PRN Reason: Agitation OXYCODONE Oral CONC [Oxycodone Oral Conc] 5 mg PO Q4H PRN 7 Days #30 oral.syg PRN Reason: pain/dyspnea Home Medications: Amlodipine Besylate 5 mg PO DAILY 01/18/17 [History] Atorvastatin [Lipitor] 20 mg PO HS 01/18/17 [History] Clopidogrel [Plavix] 75 mg PO DAILY 01/18/17 [History] Gabapentin [Neurontin] 300 mg PO HS 01/18/17 [History] Lisinopril [Zestril] 40 mg PO DAILY 01/18/17 [History] Metformin HCl [Metformin HCl ER] 500 mg PO BID 01/18/17 [History] hydroCHLOROthiazide [Hydrochlorothiazide] 12.5 mg PO DAILY 01/18/17 [History] HYDROcodone/Acet 10/325 mg [[place] 10-325 mg] 1 tab PO BID PRN #0 01/20/17 [Rx] Metoprolol [Lopressor] 25 mg PO DAILY 11/06/17 [History] Haloperidol Oral Conc [Haldol] 1 mg PO Q6H PRN #30 mls 11/15/17 [Rx] LORazepam Oral Conc [Ativan Oral Conc] 1 mg PO Q6HR PRN 7 Days #30 mls 11/15/17 [Rx] OXYCODONE Oral CONC [Oxycodone Oral Conc] 5 mg PO Q4H PRN 7 Days #30 oral.syg [Rx] Allergies/Adverse Reactions: 3 Allergy/AdvReac Type Severity Reaction Status Date / Time aspirin Allergy See Verified 05/25/16 17:16 Comments ibuprofen [From Motrin] Allergy See Verified 05/25/16 17:16 Comments Certification: Further, I certify that my clinical findings support that this patient is homebound (i.e. absences from home require considerable and taxing effort and are for medical reasons or hoahaoism services or infrequently or short duration when for other reasons) because: Homebound Reason: Patient requires assistance of a person or device to safely leave home Attestation: My signature below is to certify that this patient is under my care and that I, or nurse practitioner, or a physician's business office assistant working with me, has a face-to -face encounter with this patient.
[2017-11-15 15:29] VITALS: BP 141/52
[2017-11-15] MEDS ORDERED: Aminoglycoside Consult 1 EACH MC ONE (19:32)
== END 2017-11-15 19:33 | disposition hospice, home (50) | DRG 246 ==
LOC: EMEROO 18:17 → ICNU 18:45 → 2NNU 11-11 12:07
PROVIDERS: ADMIT Internal Medicine Interventional Cardiology; ATTEND Hospitalist